=== PATIENT | female | born 1940 | race Two or more races ===

== ENCOUNTER 2019-01-27 11:31 | Inpatient (IN) | payer MEDICARE, MEDICAID ==
[~2019-01-27] VITALS: Ht 162.6 cm; Wt 56.7 kg
[~2019-01-27 11:31] MED LIST: ATOR20TA PO; DICL75TA5 PO; GABA-532 PO; HYDR100T27 PO; ISOS30TA6 PO; LOSA100T3 PO; METO25TA6 PO; OMEP20CA11 PO; QUET25TA PO; TRAZ300T2 PO
--- NOTE | 2019-01-27 13:50 | NUR ---
MANAGER OF RECRUITING NOTE; PT ADMITTED FROM [facility]. 5150 DTO/GD. PER HOLD PT "EXPERIENCING MOOD SWINGS, FLAT AFFECT, SUSPICIOUS, GUARDED, CONFUSED, RESPONDING INAPPROPRIATELY,PARANOID, DELUSIONAL BELIEVESSOMEONE IS GOING TO RAPE/HURT HER. NOT SLEEPING FOR 3 DAYS. HIT SON WITH WALKING CANE. UNABLE TO FORMULATE A PLAN FOR SELF CARE".PT PRESENT A+OX1, HYPERTENSIVE, ANXIOUS, RESTLESS, HYPERVERBAL, DIFFICULT TO REDIRECT, PARANOID, DELUSIONAL. DENIES SI/HI/AH/VH AT PRESENT TIME. SKIN IS INTACT. VS: 199/92, 59,20,97%, 98.0. MEDICAL DOCTOR NOTIFIED OF ELEVATED BP. ORDERS RECEIVED AND CARRIED OUT. DR. NAYLOR NOTIFIED WITH ADMITTING ORDERS NOTED AND CARRIED OUT. NOTIFIED PT'S SON, MANFRED. VM LEFT ON MACHINE.
[2019-01-27] MEDS ORDERED: ALPR0.255 PO (14:54)
[2019-01-27] MEDS ORDERED: ASPI-605 PO (14:54)
[2019-01-27] MEDS ORDERED: MELO-107 PO (14:54)
[2019-01-27] MEDS: LOSARTAN POTASSIUM 50 MG TABLET PO SCH (15:00)
[2019-01-27] MEDS ORDERED: clonazePAM 0.5 MG TABLET PO STA (15:19)
[2019-01-27] MEDS ORDERED: MAG HYDROX/AL HYDROX/SIMETH 30 ML UDC PO PRN (15:30)
[2019-01-27] MEDS ORDERED: BLOOD SUGAR DIAGNOSTIC 1 EACH STRIP IN ONE (15:30)
[2019-01-27] MEDS ORDERED: TEMAZEPAM 7.5 MG CAPSULE PO PRN (15:30)
[2019-01-27] MEDS ORDERED: MAGNESIUM HYDROXIDE 30 ML UDC PO PRN (15:30)
[2019-01-27] MEDS: CLONIDINE HCL 0.1 MG TABLET PO PRN ×2 (15:46→20:22)
[2019-01-27 16:00] VITALS: BP 187/76
[2019-01-27] MEDS: hydrALAZINE HCL 50 MG TABLET PO SCH (17:00)
[2019-01-27] MEDS ORDERED: LORAZEPAM INJ 2 MG/ML VIAL IM ONE (17:00)
[2019-01-27] MEDS ORDERED: OLANZAPINE 10 MG VIAL IM ONE (17:00)
[2019-01-27 20:27] VITALS: BP 178/92
[2019-01-27] MEDS: clonazePAM 0.5 MG TABLET PO PRN ×2 (20:38→20:56)
--- NOTE | 2019-01-27 20:56 | NUR ---
GPS-RN PATIENT REFUSED KLONOPIN, DESPITE OF EXPLANATION THE IMPORTANCE PATIENT STILL REFUSED.
[2019-01-27] MEDS: GABAPENTIN 100 MG CAPSULE PO SCH (21:47)
[2019-01-27] MEDS: ATORVASTATIN 40 MG TABLET PO SCH (21:47)
--- NOTE | 2019-01-27 22:12 | NUR ---
GPS-RN PATIENT REFUSED 2200 SCHEDULED NEURONTIN AND LIPITOR. PT. REFUSED TO HAVE HER BP CHECKED AFTER ADMINISTERING CLONIDINE AND BECAME AGITATED. STATING "NO, I DON'T WANT IT". EDUCATED PT. ON RISKS VS BENEFIT PT. CONTINUES TO REFUSE. WILL CONTINUE TO MONITOR.
[2019-01-28 07:20] LABS: ALBUMIN 3.5 g/dL (3.4-5.0); BILIRUBIN,TOTAL 0.5 mg/dL (0.2-1.0); CALCIUM, SERUM 8.8 mg/dL (8.5-10.1); CREATININE 0.9 mg/dL (0.6-1.3); POTASSIUM 3.8 mmol/L (3.5-5.1); TOTAL PROTEIN, SERUM 7.5 g/dL (6.4-8.2)
[2019-01-28 07:24] LABS: CHOLESTEROL 193 mg/dL (<200); HDL CHOLESTEROL 57 mg/dL (40-60); LDL 106 mg/dL (0-99); TRIGLYCERIDES 119 mg/dL (30-150)
[2019-01-28] MEDS: PANTOPRAZOLE 40 MG TABLET.DR PO SCH (07:30)
[2019-01-28 08:00] VITALS: BP 151/78
[2019-01-28] MEDS ORDERED: METOPROLOL TARTRATE 25 MG TABLET PO SCH (09:00)
[2019-01-28] MEDS: ISOSORBIDE MONONITRATE (30MG) 30 MG TAB.SR.24H PO SCH (09:24)
[2019-01-28] MEDS: METOPROLOL TARTRATE 25 MG TABLET PO SCH (09:25)
[2019-01-28] MEDS: hydrALAZINE HCL 50 MG TABLET PO SCH ×3 (09:26→16:38)
[2019-01-28] MEDS: LOSARTAN POTASSIUM 50 MG TABLET PO SCH (09:26)
[2019-01-28] MEDS: clonazePAM 0.5 MG TABLET PO PRN (09:47)
--- NOTE | 2019-01-28 09:53 | NUR ---
RN NOTE: PATIENT NOTED WITH ANXIETY M/B PACING THE HALLWAYS AND CRYING EPISODE. ADMINISTERED PRN KLONOPIN.
--- NOTE | 2019-01-28 11:11 | NUR ---
Family Contact: SW called the pts son, Brendan ([phone]), and left him a voicemail that stated that the pt is currently in the hospital and the SW would like to coordinate the discharge plan.
[2019-01-28] MEDS: QUETIAPINE FUMARATE 25 MG TABLET PO SCH ×2 (11:45→16:38)
--- NOTE | 2019-01-28 12:35 | NUR ---
Initial Discharge Plan: Pt currently resides in a senior apartment located at [address] [place] [address], [address] [address]; ([phone]). Per pt, she would like to return to her apartment where her son is her shagger. JASMINE will work with the pt and the MD regarding appropriate discharge planning. SW will form a safe and proper discharge plan.
--- NOTE | 2019-01-28 14:50 | NUR ---
Group Note: SW encouraged pt to participate in group on 01/28/19 at 2pm discussing social supports. Pt is inappropriate for group therapy as pt is highly anxious, distressed, and paranoid. Pt is preoccupied with the thought of her son and returning back to her home. SW attempted to have a conversation with her about her sons involvement in her life and pt continuously screamed his name.
[2019-01-28 16:00] VITALS: BP 137/59
[2019-01-28 20:01] VITALS: BP 165/99
[2019-01-28] MEDS: GABAPENTIN 100 MG CAPSULE PO SCH (21:25)
[2019-01-28] MEDS: ATORVASTATIN 40 MG TABLET PO SCH (21:25)
[2019-01-29] MEDS: PANTOPRAZOLE 40 MG TABLET.DR PO SCH (08:20)
[2019-01-29] MEDS: LOSARTAN POTASSIUM 50 MG TABLET PO SCH (08:21)
[2019-01-29] MEDS: hydrALAZINE HCL 50 MG TABLET PO SCH ×3 (09:02→16:31)
[2019-01-29] MEDS: ISOSORBIDE MONONITRATE (30MG) 30 MG TAB.SR.24H PO SCH (09:02)
[2019-01-29] MEDS: QUETIAPINE FUMARATE 25 MG TABLET PO SCH ×2 (09:02→16:49)
[2019-01-29] MEDS: METOPROLOL TARTRATE 25 MG TABLET PO SCH (09:03)
[2019-01-29 16:00] VITALS: BP 128/56
[2019-01-29 20:00] VITALS: BP 151/69
[2019-01-29] MEDS: ATORVASTATIN 40 MG TABLET PO SCH (21:10)
[2019-01-29] MEDS: GABAPENTIN 100 MG CAPSULE PO SCH (21:10)
[2019-01-29] MEDS ORDERED: MEMANTINE HCL 5 MG TABLET PO SCH (22:00)
[2019-01-30 08:00] VITALS: BP 159/77
[2019-01-30] MEDS: PANTOPRAZOLE 40 MG TABLET.DR PO SCH (08:13)
[2019-01-30] MEDS: hydrALAZINE HCL 50 MG TABLET PO SCH ×3 (08:14→16:54)
[2019-01-30] MEDS: ISOSORBIDE MONONITRATE (30MG) 30 MG TAB.SR.24H PO SCH (08:15)
[2019-01-30] MEDS: LOSARTAN POTASSIUM 50 MG TABLET PO SCH (08:15)
[2019-01-30] MEDS: METOPROLOL TARTRATE 25 MG TABLET PO SCH (08:16)
[2019-01-30] MEDS: QUETIAPINE FUMARATE 25 MG TABLET PO SCH ×2 (08:16→16:56)
--- NOTE | 2019-01-30 09:27 | NUR ---
PC Hearing Notification: JASMINE called the pts son, Brendan ([phone]), and left a voicemail to inform him that the pt will be having a Probable Cause Hearing today and that it is scheduled for 1529 but may happen earlier.
--- NOTE | 2019-01-30 09:38 | NUR ---
Family Contact: Brendan ([phone]), pt's son, called the SW back and stated that he will most likely not be able to make it to the hearing because he is currently working in [employer]. He asked that the SW call him after the hearing to inform him of the results.
--- NOTE | 2019-01-30 12:47 | NUR ---
GROUP NOTE: SW encouraged pt to attend group discussing "issues with current hospitalization." Pt unable to participate in group due to pts cognitive impairment and only being alert/oriented to self. Pt is otherwise, disorganized, confused, and disoriented. Pt is very anxious and not appropriate for group at this time.
[2019-01-30 16:00] VITALS: BP 98/64
--- NOTE | 2019-01-30 16:18 | NUR ---
Family Contact: Brendan ([phone]), pt's son, called the SW and the SW stated that the pts PC hearing was upheld.
--- NOTE | 2019-01-30 17:00 | NUR ---
GPS RN NOTE PATIENT REFUSED HYDRALAZINE AND SEROQUEL. EDUCATED PATIENT RISKS VS BENEFITS. PATIENT RAISED VOICE AND STATED " YOU CANT GIVE ME THAT, I DONT TRUST THAT MEDICATION. I DONT WANT TO TAKE THAT MEDICATION STOP IT". EXPLAINED IMPORTANCE OF MEDICATION. PATIENT CONTINUED TO REFUSE. PATIENT IN NO ACUTE DISTRESS. WILL CONTINUE TO MONITOR.
--- NOTE | 2019-01-30 19:21 | NUR ---
PATIENT IS ALERT AND CONFUSED. AMBULATING/STTEADY GAIT. CALM, QUIET. SHOWS NO S/S OF ANY PAIN.
--- NOTE | 2019-01-30 19:22 | NUR ---
AWAKE ALERT, CONFUSED, AMBULATING, DAUGHTER VISITING AT THIS TIME. SHOWS NO S/S OF ANY DISTRESS.
[2019-01-30] MEDS: CLONIDINE HCL 0.1 MG TABLET PO PRN (19:59)
--- NOTE | 2019-01-30 19:59 | NUR ---
BP NOW 172/67, CLONIDINE 0.1 MG TAB 1 PO GIVEN.
[2019-01-30 20:02] VITALS: BP 172/67
[2019-01-30] MEDS: MEMANTINE HCL 5 MG TABLET PO SCH (20:17)
[2019-01-30] MEDS: ATORVASTATIN 40 MG TABLET PO SCH ×2 (21:02→21:15)
[2019-01-30] MEDS: GABAPENTIN 100 MG CAPSULE PO SCH ×2 (21:02→21:15)
--- NOTE | 2019-01-30 21:15 | NUR ---
PATIENT REFUSED LIPITOR 40 AND NEURONTIN 200 MG DUE FOR 2200 TONIGHT. OFFERED X2. PATIENT YELLING AND SCREAMING, " GET OUT OF HERE, I TOOK MY MEDICATION ALREADY."
--- NOTE | 2019-01-31 02:51 | NUR ---
BP 191/70, HR 63, CLONIDINE 0.1 MG TAB PO REFUSED SEVERAL TIMES.
--- NOTE | 2019-01-31 03:06 | NUR ---
CALLED AND SPOKE TO JOEL CORTEZ, RE: PATIENT IS REFUSING ORAL CLONIDINE 0.1 MG PRN FOR SBP > 160. OBTAINED NEW ORDER FOR CLONIDINE PATCH 0.1 MG Q WEEKLY.
[2019-01-31] MEDS ORDERED: CLONIDINE HCL 0.1MG/24H PTWK 1 EA PATCH TD ONE (03:19)
--- NOTE | 2019-01-31 03:25 | NUR ---
CLONIDINE PATCH 0.1 MG GIVEN, APPLIED ON LOWER MID BACK.
[2019-01-31] MEDS ORDERED: CLONIDINE HCL 0.1MG/24H PTWK 1 EA PATCH TD SCH (04:00)
--- NOTE | 2019-01-31 06:12 | NUR ---
GPS/RN NOTE: CLONIDINE PATCH 0.1 MG Q WEEKLY. PLEASE FOLLOW UP WITH MD IF IT NEEDS TO BE CONTINUED 0R NOT. ENDORSED TO DAY SHIFT NURSE.
--- NOTE | 2019-01-31 06:57 | NUR ---
GPS/RN NOTE: REFUSED BP CHECK AT THIS TIME.
[2019-01-31 08:00] VITALS: BP 180/77
[2019-01-31] MEDS: PANTOPRAZOLE 40 MG TABLET.DR PO SCH (09:08)
[2019-01-31] MEDS: hydrALAZINE HCL 50 MG TABLET PO SCH ×3 (09:09→16:56)
[2019-01-31] MEDS: ISOSORBIDE MONONITRATE (30MG) 30 MG TAB.SR.24H PO SCH (09:10)
[2019-01-31] MEDS: MEMANTINE HCL 5 MG TABLET PO SCH ×2 (09:10→21:22)
[2019-01-31] MEDS: METOPROLOL TARTRATE 25 MG TABLET PO SCH (09:10)
[2019-01-31] MEDS: LOSARTAN POTASSIUM 50 MG TABLET PO SCH (09:11)
[2019-01-31] MEDS: QUETIAPINE FUMARATE 25 MG TABLET PO SCH ×2 (09:11→16:57)
[2019-01-31] MEDS: CLONIDINE HCL 0.1 MG TABLET PO PRN (09:11)
[2019-01-31 12:18] VITALS: BP 105/59
--- NOTE | 2019-01-31 12:18 | NUR ---
RN NOTE: PATIENT C/O INDIGESTION, PRN MAALOX GIVEN
[2019-01-31] MEDS ORDERED: CLONIDINE HCL 0.1 MG TABLET PO PRN (15:00)
[2019-01-31 16:00] VITALS: BP 98/53
[2019-01-31 20:08] VITALS: BP 149/70
[2019-01-31] MEDS: ATORVASTATIN 40 MG TABLET PO SCH (21:22)
[2019-01-31] MEDS: GABAPENTIN 100 MG CAPSULE PO SCH (21:22)
[2019-02-01] MEDS: ISOSORBIDE MONONITRATE (30MG) 30 MG TAB.SR.24H PO SCH (07:52)
[2019-02-01] MEDS: QUETIAPINE FUMARATE 25 MG TABLET PO SCH ×3 (07:53→18:08)
[2019-02-01] MEDS: hydrALAZINE HCL 50 MG TABLET PO SCH ×3 (07:53→16:06)
[2019-02-01] MEDS: MEMANTINE HCL 5 MG TABLET PO SCH ×2 (07:54→21:00)
[2019-02-01] MEDS: METOPROLOL TARTRATE 25 MG TABLET PO SCH (07:54)
[2019-02-01] MEDS: PANTOPRAZOLE 40 MG TABLET.DR PO SCH (07:54)
[2019-02-01] MEDS: LOSARTAN POTASSIUM 50 MG TABLET PO SCH (07:54)
[2019-02-01 09:07] VITALS: BP 186/77
[2019-02-01] MEDS: ACETAMINOPHEN 325 MG TABLET PO PRN (15:24)
[2019-02-01] MEDS: clonazePAM 0.5 MG TABLET PO PRN (15:28)
[2019-02-01 16:00] VITALS: BP 124/72
[2019-02-01 19:55] VITALS: BP 141/64
[2019-02-01 19:57] VITALS: BP 141/64
--- NOTE | 2019-02-01 20:15 | NUR ---
rn notes: RECEIVED PT, SITTING ON A CHAIR, STATED SHE WOULD LIKE TO GO HOME, INFORMED PT IT IS NOT SAFE FOR HER TO LEAVE THE HOSPITAL AT THIS TIME, IT IS NIGHT TIME AND IT WOULD BE BETTER FOR HER TO STAY IN ORDER TO GET BETTER AND WHEN EVERYTHING IS IMPROVE AND IT IS SAFE FOR HER LEAVE, THEN THERE IS NO REASON FOR DOCTORS NOT TO LET HER LEAVE THE HOSPITAL. OFFERED PT'S ANXIETY MEDICATION BUT PT REFUSED. PER REPORT PT IS COMPLIANT WITH MEDS, HOWEVER TONIGHT SHE'S VERBALIZING THAT SHE DOESN'T WANT TO TAKE ANY OF HER MEDICATIONS. WITNESS BY ANOTHER RN. PT DENIES ANY SI/HI AT THIS TIME, STATED ALL SHE WOULD LIKE TO DO IS GO HOME. VERBALIZATION OF FEELINGS HIGHLY ENCOURAGE. RELAXATION TECHNIQUES PROVIDED. OFFERED SNACK AND WARM BLANKET, AND MAGAZINE TO READ BUT ALL THOSE OPTIONS WERE REFUSED BY PT. PT'S RESPIRATIONS EVEN AND UNLABORED. VS TAKEN AND RECORDED. PT DECIDED TO SIT IN THE HALLWAY BY RN STATION. WILL ACCOMPANY PT IN THE ROOM LATER ON. SAFETY PRECAUTIONS FOR FALL INITIATED, WILL CONTINUE MONITORING PT Q24PMRH FOR SAFETY AND ANY CHANGES IN BEHAVIOR.
[2019-02-01] MEDS: ATORVASTATIN 40 MG TABLET PO SCH (21:23)
[2019-02-01] MEDS: GABAPENTIN 100 MG CAPSULE PO SCH (21:23)
--- NOTE | 2019-02-01 21:23 | NUR ---
RN NOTES: PT REFUSED TAKING ANY OF THE MEDICATION FOR TONIGHT, OFFERED TWICE BUT PT IS FIRM WITH HER DECISION, WITNESSED BY QUAN BENTON AND QUAN MENDEZ. EDUCATION PROVIDED TO PT REGARDING RISK AND BENEFITS.
[2019-02-02] MEDS: QUETIAPINE FUMARATE 25 MG TABLET PO SCH ×2 (06:00→16:14)
--- NOTE | 2019-02-02 06:00 | NUR ---
RN NOTES: UNABLE TO ADMINISTER SCHEDULE SEROQUEL, IT IS TIMED FOR 0600AM, ORDER IS FOR Q12HRS. PT SLEEPING, AROUSES TO TACTILE STIMULI, DOES NOT WANT TO TAKE MEDS BECUASE IT'S TOO EARLY. WILL TRY OFFERING AGAIN AT 0630.
--- NOTE | 2019-02-02 06:47 | NUR ---
RN NOTES: PT REMAINS TO BE SLEEPING, APPEARS CALM AND COMFORTABLE, TRIED WAKING UP THE PT FOR SCHED MED SEROQUEL, HOWEVER PT REMAINS TO BE SLEEPING, RISE AND FALL OF CHEST NOTED, RESPIRATIONS EVEN AND UNLABORED. WILL ENDORSE TO DAY RN TO ADMINISTER MEDS ONCE PT IS MORE AWAKE.
[2019-02-02 08:00] VITALS: BP 154/70
[2019-02-02] MEDS: MEMANTINE HCL 5 MG TABLET PO SCH ×2 (08:15→20:23)
[2019-02-02] MEDS: ISOSORBIDE MONONITRATE (30MG) 30 MG TAB.SR.24H PO SCH (08:15)
[2019-02-02] MEDS: PANTOPRAZOLE 40 MG TABLET.DR PO SCH (08:15)
[2019-02-02] MEDS: LOSARTAN POTASSIUM 50 MG TABLET PO SCH (08:16)
[2019-02-02] MEDS: hydrALAZINE HCL 50 MG TABLET PO SCH ×3 (08:17→16:39)
[2019-02-02] MEDS: METOPROLOL TARTRATE 25 MG TABLET PO SCH (08:18)
[2019-02-02] MEDS: ACETAMINOPHEN 325 MG TABLET PO PRN (11:02)
--- NOTE | 2019-02-02 11:03 | NUR ---
PT C/O 01/08 HEADACHE. MEDICATED WITH TYLENOL 650MG PO.
--- NOTE | 2019-02-02 13:30 | NUR ---
Family Contact: SW called the pts son, Brendan ([phone]), and left him a voicemail that stated that the pts MD is requesting that the pt go to a care facility before returning home and the SW stated that she would like to discuss this plan with the pts son.
[2019-02-02] MEDS ORDERED: ETOMIDATE 2 MG/ML VIAL IV ONE (13:35)
[2019-02-02] MEDS ORDERED: ROCURONIUM BROMIDE 50 MG/5 ML IV ONE (13:35)
[2019-02-02 16:00] VITALS: BP 156/80
[2019-02-02 19:44] VITALS: BP 166/76
[2019-02-02] MEDS: GABAPENTIN 100 MG CAPSULE PO SCH (21:33)
[2019-02-02] MEDS: ATORVASTATIN 40 MG TABLET PO SCH (21:34)
[2019-02-03 08:00] VITALS: BP 142/60
[2019-02-03] MEDS: METOPROLOL TARTRATE 25 MG TABLET PO SCH (08:37)
[2019-02-03] MEDS: hydrALAZINE HCL 50 MG TABLET PO SCH ×3 (08:37→16:51)
[2019-02-03] MEDS: QUETIAPINE FUMARATE 25 MG TABLET PO SCH ×3 (08:38→16:51)
[2019-02-03] MEDS: PANTOPRAZOLE 40 MG TABLET.DR PO SCH (08:38)
[2019-02-03] MEDS: MEMANTINE HCL 5 MG TABLET PO SCH ×2 (08:38→21:06)
[2019-02-03] MEDS: LOSARTAN POTASSIUM 50 MG TABLET PO SCH (08:45)
[2019-02-03] MEDS: ISOSORBIDE MONONITRATE (30MG) 30 MG TAB.SR.24H PO SCH (08:46)
--- NOTE | 2019-02-03 14:15 | NUR ---
SNF Contact: Sandra ([phone]) from [facility] contacted the SW and stated that the pt was accepted to their facility.
--- NOTE | 2019-02-03 14:51 | NUR ---
Family Contact: SW called the pts son, Brendan ([phone]), and informed him that the MD is recommending that the pt be discharged to a SNF before home at this time for further stabilization. Pts son stated that he accepts this discharge plan and stated that the SW can send referrals to whichever facility the MD prefers. SW stated that she will keep him updated regarding the discharge plan.
--- NOTE | 2019-02-03 14:52 | NUR ---
SNF Referral: JASMINE faxed a referral to [facility] with attention to Sandra to the fax number: [phone].
--- NOTE | 2019-02-03 15:36 | NUR ---
Group Note: SW encouraged pt to participate in group on 02/03/19 at 1pm discussing discharge planning. Pt is inappropriate for group therapy as pt is highly anxious, distressed, and paranoid. Pt is preoccupied with the thought of her son and returning back to her home. SW attempted to have a conversation with her about her being discharged to a SNF and the pt stated that she wants to go to one so the SW stated that she will be sending referrals out for her.
[2019-02-03 15:53] VITALS: BP 103/52
[2019-02-03 20:03] VITALS: BP 140/70
[2019-02-03 20:43] VITALS: BP 140/70
--- NOTE | 2019-02-03 20:53 | NUR ---
RN NOTE RECEIVED PT IN STABLE CONDITION A/O X1 CURRENTLY NOTED IN BED WITH DAUGHTER AT BEDSIDE. NO S/S OF DISTRESS, NO C/O PAIN OR N/V. NO SIGNS OF SI OR HI. ALL CURRENT NEEDS ATTENDED TO. WILL CONT. TO MONITOR PT'S BEHAVIOR CLOSELY. SAFETY PRECAUTIONS IN PLACE.
[2019-02-03] MEDS: ATORVASTATIN 40 MG TABLET PO SCH (21:05)
[2019-02-03] MEDS: GABAPENTIN 100 MG CAPSULE PO SCH (21:06)
[2019-02-04 08:00] VITALS: BP 152/56
[2019-02-04] MEDS: LOSARTAN POTASSIUM 50 MG TABLET PO SCH (08:28)
[2019-02-04] MEDS: METOPROLOL TARTRATE 25 MG TABLET PO SCH ×2 (08:29→16:55)
[2019-02-04] MEDS: hydrALAZINE HCL 50 MG TABLET PO SCH ×3 (08:29→16:54)
[2019-02-04] MEDS: PANTOPRAZOLE 40 MG TABLET.DR PO SCH (08:29)
[2019-02-04] MEDS: ISOSORBIDE MONONITRATE (30MG) 30 MG TAB.SR.24H PO SCH (08:29)
[2019-02-04] MEDS: QUETIAPINE FUMARATE 25 MG TABLET PO SCH ×3 (08:30→16:54)
[2019-02-04] MEDS: MEMANTINE HCL 5 MG TABLET PO SCH ×2 (08:30→21:01)
--- NOTE | 2019-02-04 08:31 | NUR ---
Duplicate dose of seroquel in morning list, 25 mg. Bryant Renee RN
[2019-02-04 16:00] VITALS: BP 105/53
[2019-02-04] MEDS: ACETAMINOPHEN 325 MG TABLET PO PRN (17:44)
--- NOTE | 2019-02-04 17:50 | NUR ---
Given as needed tylenol for pain in left knee. Patient has a history of arthritis per her report. Bryant Renee RN
[2019-02-04 18:28] LABS: BASOPHILS % (AUTO) 0.2 % (0.0-2.0); EOSINOPHILS % (AUTO) 5.5 % (0.0-6.0); HEMATOCRIT 32 % (33-45); HEMOGLOBIN 10.4 g/dL (11.5-14.8); LYMPHOCYTES # (AUTO) 2.7 /CMM (0.8-4.8); LYMPHOCYTES % (AUTO) 47.7 % (20.0-44.0); MEAN CORPUSCULAR HGB CONC 33 g/dl (31.0-36.0); MEAN CORPUSCULAR VOLUME 96 fL (82-100); MONOCYTES # (AUTO) 0.6 /CMM (0.1-1.30); NEUTROPHILS % (AUTO) 35.6 % (43.0-81.0); PLATELET COUNT (AUTO) 245 /CMM (150-450); RED BLOOD CELL COUNT(AUTO) 3.28 MIL/uL (4.0-5.2); WHITE BLOOD COUNT (AUTO) 5.6 K/uL (4.3-11.0)
[2019-02-04 18:46] LABS: ALANINE AMINOTRANSFERASE 18 U/L (12-78); ALBUMIN 3.1 g/dL (3.4-5.0); ALKALINE PHOSPHATASE 78 U/L (46-116); ASPARTATE AMINOTRANSFERASE 15 U/L (15-37); BILIRUBIN,TOTAL 0.2 mg/dL (0.2-1.0); CALCIUM, SERUM 8.4 mg/dL (8.5-10.1); CARBON DIOXIDE 26 mmol/L (21-32); CHLORIDE 108 mmol/L (98-107); CREATININE 1.2 mg/dL (0.6-1.3); GLUCOSE 104 mg/dL (74-106); SODIUM SERUM 141 mmol/L (136-145); TOTAL PROTEIN, SERUM 6.6 g/dL (6.4-8.2); UREA NITROGEN, BLOOD 36 mg/dL (7-18)
[2019-02-04 18:54] LABS: C-REACTIVE PROTEIN < 0.2 mg/dL (0.0-0.9)
--- NOTE | 2019-02-04 19:25 | NUR ---
GPS OPENING NOTE. REPORT RECIEVED FROM KORY GLASS. RECIEVED PATIENT AWAKE IN BED. AXO 1 PATIENT RESPONDS TO VERBAL STIMULI. PATIENT DENIES PAIN. BREATHING EVEN AND UNLABORED. PATIENT CURLED UP IN BED WITH BLANKETS UP TO HER NECK. PT IS DISORGANIZED AND CONFUSED AND NEEDS CONSTANT REORIENTATION. PT REORIENTED TO HER SURROUNDINGS. PT DENIES SI AND HI AT THIS TIME. DENIES NEEDS AT THIS TIME. BED LOCKED AND LOW WILL CONT TO MONITOR AND MAINTAIN SAFETY CHECKS PER GPS PROTOCOL.
[2019-02-04 20:03] VITALS: BP 96/57
[2019-02-04] MEDS: GABAPENTIN 100 MG CAPSULE PO SCH (21:01)
[2019-02-04] MEDS: ATORVASTATIN 40 MG TABLET PO SCH (21:01)
--- NOTE | 2019-02-04 21:22 | NUR ---
GPS RN NOTES: SPOKE WITH ATTILA FROM RADIOLOGY REGARDING THE STATUS OF THE XRAY ORDER FOR THIS PATIENT. PER ATTILA IT'S NOT SHOWING UP ON THEIR END. SECOND ORDER INPUTTED ALREADY HOWEVER IT IS STILL NOT SHOWING ON THEIR SIDE. WILL FOLLOW UP THE SAID SITUATION WITH THE NURSE DIRECTOR SOFTWARE DEVELOPMENT-ASHVIN.
--- NOTE | 2019-02-04 21:40 | NUR ---
GPS RN NOTES: ASHVINRN JOURNEYMAN CARPENTER CAME BY INTO THE UNIT AND ASKED THE UI SOFTWARE ENGINEER TO PRINT THE ORDER AND SHE'LL GIVE IT TO RADIOLOGY STAFF. WILL FOLLOW UP.
--- NOTE | 2019-02-04 22:19 | NUR ---
GPS RN NOTES: DR. KEBEDE PUT IN ANOTHER ORDER FOR THE XRAY- THIS TIME IT CAME THROUGH ON RADIOLOGY'S END. WILL FOLLOW UP.
[2019-02-05 01:30] LABS: APPEARANCE,URINE CLEAR (CLEAR); BILIRUBIN,URINE NEGATIVE (NEGATIVE); BLOOD, URINE NEGATIVE Ery/uL (NEGATIVE); COLOR,URINE YELLOW (YELLOW); KETONES,URINE NEGATIVE (NEGATIVE); LEUKOCYTE ESTERASE ,URINE NEGATIVE (NEGATIVE); NITRITE, URINE NEGATIVE (NEGATIVE); PROTEIN,URINE NEGATIVE (NEGATIVE); UGLUCOSE NEGATIVE (NEGATIVE); UROBILINOGEN,URINE 0.2 EU/dL (0.2)
[2019-02-05 08:00] VITALS: BP 151/68
[2019-02-05] MEDS: QUETIAPINE FUMARATE 25 MG TABLET PO SCH ×4 (08:42→22:00)
[2019-02-05] MEDS: METOPROLOL TARTRATE 25 MG TABLET PO SCH ×2 (08:43→16:54)
[2019-02-05] MEDS: PANTOPRAZOLE 40 MG TABLET.DR PO SCH (08:43)
[2019-02-05] MEDS: hydrALAZINE HCL 50 MG TABLET PO SCH ×3 (08:43→16:31)
[2019-02-05] MEDS: MEMANTINE HCL 5 MG TABLET PO SCH ×3 (09:18→21:12)
[2019-02-05] MEDS: ISOSORBIDE MONONITRATE (30MG) 30 MG TAB.SR.24H PO SCH (09:18)
[2019-02-05] MEDS: LOSARTAN POTASSIUM 50 MG TABLET PO SCH (09:20)
[2019-02-05 10:07] VITALS: BP 150/57
--- NOTE | 2019-02-05 10:08 | NUR ---
PATIENT WALKING UNIT / EXERTING HERSELF PER HER REPORT BEGAN TO HAVE LEFT SIDE CHEST PAIN. POSSIBLE PULL OF MUSCLE FROM WALKER. WILL NOTIFY MD. VITAL SIGNS STABLE. NO APPARENT DISTRESS. KORY Renee RN
--- NOTE | 2019-02-05 10:21 | NUR ---
CALL TO PROVIDER REGARDING PATIENT COMPLAINT OF CHEST PAIN AFTER AMBULATING HALLWAY WITH WALKER AND UNREMARKABLE VITAL SIGNS, NO RADIATION OF PAIN, NO DYSPNEA, NO SWEATING. KORY Renee RN
[2019-02-05 16:00] VITALS: BP 150/59
--- NOTE | 2019-02-05 16:20 | NUR ---
Family Contact: SW called the pts son, Brendan ([phone]), and informed him that the pt will be discharged to [facility] the following day.
[2019-02-05] MEDS: ACETAMINOPHEN 325 MG TABLET PO PRN (16:53)
[2019-02-05 20:00] VITALS: BP 146/63
[2019-02-05 20:16] VITALS: BP 146/63
[2019-02-05 20:23] VITALS: BP 146/63
[2019-02-05] MEDS: GABAPENTIN 100 MG CAPSULE PO SCH ×2 (21:12→22:00)
[2019-02-05] MEDS: ATORVASTATIN 40 MG TABLET PO SCH ×2 (21:12→22:00)
--- NOTE | 2019-02-05 22:05 | NUR ---
GPS RN NOTE PATIENT AWOKE FROM SLEEP. YELLING "WHOEVER IS IN MY KITCHEN BETTER GET OUT OF THERE." RN ORIENTED PATIENT STATING THAT SHE IS IN THE HOSPITAL. OFFERED PATIENT NIGHT TIME MEDICATIONS AND PATIETN REFUSED ALL MEDS. STATING "IM AT HOME I DONT NEED ANYTHING." AGAIN RN ORIENTED PATIENT THAT SHE IS IN THE HOSPITAL AND NEEDS TO TAKE HER MEDS. PATIENT STILL REFUSED. WILL TRY AGAIN AT A LATER TIME. PATIENT WENT BACK TO SLEEP.
--- NOTE | 2019-02-06 04:01 | NUR ---
GPS RN NOTE PATIENT WOKE UP IN THE MIDDLE OF THE NIGHT TO USE THE BATHROOM DID NOT MAKE IT, AND SOILED HERSELF AND THE BED, LINENS AND CLOTHES CHANGES, PATIENT CLEANED
[2019-02-06 08:00] VITALS: BP 148/65
[2019-02-06] MEDS: QUETIAPINE FUMARATE 25 MG TABLET PO SCH (08:10)
[2019-02-06] MEDS: ISOSORBIDE MONONITRATE (30MG) 30 MG TAB.SR.24H PO SCH (08:11)
[2019-02-06] MEDS: LOSARTAN POTASSIUM 50 MG TABLET PO SCH (08:12)
[2019-02-06] MEDS: hydrALAZINE HCL 50 MG TABLET PO SCH ×2 (08:12→12:21)
[2019-02-06] MEDS: MEMANTINE HCL 5 MG TABLET PO SCH (08:12)
[2019-02-06] MEDS: PANTOPRAZOLE 40 MG TABLET.DR PO SCH (08:12)
--- NOTE | 2019-02-06 08:13 | NUR ---
RN NOTE: 0900 METOPROLOL HELD D/T PULSE 56
[2019-02-06] MEDS: METOPROLOL TARTRATE 25 MG TABLET PO SCH (08:17)
--- NOTE | 2019-02-06 08:34 | NUR ---
Family Contact: SW called the pts son, Brendan ([phone]), and informed him that the pt will be discharged today to [facility] at around 1pm and attempted to answer his questions regarding the pts projected length of stay and her medication dosages.
[2019-02-06] MEDS ORDERED: ENSURE ENLIVE 237 ML LIQUID (VANILLA) PO SCH (09:00)
[2019-02-06 12:21] VITALS: BP 103/58
--- NOTE | 2019-02-06 13:04 | NUR ---
Discharge Note: Pt was discharged to [facility] ([facility]) located at [address] [place] [address]; ([phone]). Pt was transported via [facility] at 12PM. Pts son, Brendan ([phone]), was informed of the discharge. Upon discharge, the pt appeared to be in an anxious mood and presented with a distressed affect. Pt appeared to be well groomed and appropriately dressed. Pt was alert and oriented x4. Pt denied both suicidal and homicidal ideation as well as auditory and visual hallucinations. Pt will be under the care of her psychiatrist, Dr. Erna Centeno, located at [address] [facility] [address], [place] [address]; and her surgical services assistant, Dr. Deepak Rowan, located at [address] [facility], [address] [place] [address]; .
--- NOTE | 2019-02-06 13:09 | NUR ---
INSOLE RASPER NOTE: PATIENT IS A 78 YEAR OLD FEMALE DISCHARGED TO [facility] [address] [facility] [id number] [phone]. PATIENT IS IN STABLE CONDITION. VSS. NO ACUTE DISTRESS NOTED. NO COMPLAINTS. COMPLIANT WITH MEDICATION MANAGEMENT. COOPERATIVE WITH PLAN OF CARE. PSYCHIATRIC TREATMENT PLANS MET. MEDICAL TREATMENT PLANS DEFERRED FOR CONTINUAL MONITORING. DENIES SI/HI VAH AT THE TIME OF DISCHARGE. SKIN INTACT. EDUCATED PATIENT ABOUT AFTERCARE WITH COPY PROVIDED. RETURNED PERSONAL BELONGINGS TO PATIENT. MEDICATIONS RECONCILED WITH ALONG WITH PSYCHIATRIC DISCHARGE ORDERS. DISCHARGE PAPERWORK SIGNED. FOR FOLLOW UP WITH PSYCHIATRIST DR KEBEDE [address] [facility] [address] [place] [phone] AND VOCATIONAL NURSE LVN DR RAMAN [address] [facility] [address] [facility] [phone] WITHIN 1 WEEK. PATIENT LEFT THE [facility] GPS VIA AMBULANCE AT 1300.
== END 2019-02-06 13:00 | DRG 885 ==
LOC: GPS 13:25
PROVIDERS: ADMIT Psychiatry & Neurology Psychosomatic Medicine; ATTEND Internal Medicine
DX: F29 Unspecified psychosis not due to a substance or known physiological condition (principal); G93.40 Encephalopathy, unspecified; I25.10 Atherosclerotic heart disease of native coronary artery without angina pectoris; I10 Essential (primary) hypertension; E78.5 Hyperlipidemia, unspecified; K21.9 Gastro-esophageal reflux disease without esophagitis; J44.9 Chronic obstructive pulmonary disease, unspecified; I16.0 Hypertensive urgency; G62.9 Polyneuropathy, unspecified; F41.9 Anxiety disorder, unspecified; F32.9 Major depressive disorder, single episode, unspecified; M17.12 Unilateral primary osteoarthritis, left knee; R07.89 Other chest pain; F25.9 Schizoaffective disorder, unspecified; F01.50 Vascular dementia, unspecified severity, without behavioral disturbance, psychotic disturbance, mood disturbance, and anxiety; Z86.73 Personal history of transient ischemic attack (TIA), and cerebral infarction without residual deficits; Z88.0 Allergy status to penicillin; Z87.891 Personal history of nicotine dependence; Z91.14 Patient's other noncompliance with medication regimen
CPT/HCPCS: 36415; 73564-TC; 80053-TC; 80061-TC; 81000-TC; 82962-TC; 84484-TC; 85025-TC; 85652-TC; 86140-TC; 87086-TC; J2060; J3490

== ENCOUNTER 2019-03-15 12:52 | Inpatient (IN) | payer MEDICAID, MEDICARE ==
[~2019-03-15] VITALS: Ht 165.1 cm; Wt 60.3 kg
[~2019-03-15 12:52] MED LIST changes: +ASPI-605 PO; -ATOR20TA PO; +CEPHALEXIN MONOHYDRATE 250 MG CAPSULE PO SCH; -DICL75TA5 PO; -ISOS30TA6 PO; +MELO-107 PO; -METO25TA6 PO; -OMEP20CA11 PO; +OMEP20CA15 PO; -QUET25TA PO; -TRAZ300T2 PO
--- NOTE | 2019-03-15 12:55 | NUR ---
SANIA SLATER FROM [facility], C/O WITNESSED SYNCOPAL EPISODE, PT IS AAOX2, NOT IN RESPIRATORY DISTRESS, HOOKED TO MONITOR, KEPT RESTED AND COMFORTABLE, WILL CONTINUE TO MONITOR.
--- NOTE | 2019-03-15 12:59 | NUR ---
PT SEEN AND EXAMINED BY .
[2019-03-15] MEDS ORDERED: IV NS 0.9% 500 ML BAG IV ONE (13:00)
[2019-03-15] MEDS ORDERED: ONDANSETRON HCL/PF 4 MG/2 ML VIAL IVP ONE (13:00)
[2019-03-15 13:14] LABS: BASOPHILS # (AUTO) 0.1 /CMM (0.0-0.2); BASOPHILS % (AUTO) 0.8 % (0.0-2.0); EOSINOPHILS % (AUTO) 4.5 % (0.0-6.0); HEMATOCRIT 32 % (33-45); HEMOGLOBIN 10.5 g/dL (11.5-14.8); LYMPHOCYTES # (AUTO) 2.5 /CMM (0.8-4.8); LYMPHOCYTES % (AUTO) 39.5 % (20.0-44.0); MEAN CORPUSCULAR HGB CONC 33 g/dl (31.0-36.0); MEAN CORPUSCULAR VOLUME 97 fL (82-100); MONOCYTES # (AUTO) 0.5 /CMM (0.1-1.30); NEUTROPHILS % (AUTO) 47.2 % (43.0-81.0); PLATELET COUNT (AUTO) 259 /CMM (150-450); RED BLOOD CELL COUNT(AUTO) 3.34 MIL/uL (4.0-5.2); WHITE BLOOD COUNT (AUTO) 6.3 K/uL (4.3-11.0)
--- NOTE | 2019-03-15 13:15 | NUR ---
IV LINE ESTABLISHED, BLOOD DRAWN AND SENT TO LAB.
[2019-03-15] MEDS ORDERED: ATOR40TA PO (13:19)
[2019-03-15] MEDS ORDERED: MAGN400O6 PO (13:19)
[2019-03-15] MEDS ORDERED: PANT40TA2 PO (13:19)
[2019-03-15] MEDS ORDERED: MULT-447 PO (13:19)
[2019-03-15] MEDS ORDERED: METO25TA20 PO (13:19)
[2019-03-15] MEDS ORDERED: MEMA10TA PO (13:19)
[2019-03-15] MEDS ORDERED: CLON1PAT TD (13:19)
[2019-03-15] MEDS ORDERED: TEMA15CA5 PO (13:19)
[2019-03-15] MEDS ORDERED: ISOS30TA6 PO (13:19)
[2019-03-15] MEDS ORDERED: BISA10SU11 RC (13:19)
[2019-03-15] MEDS ORDERED: QUET25TA PO (13:19)
[2019-03-15] MEDS ORDERED: QUET50TA PO (13:19)
[2019-03-15] MEDS ORDERED: NA P133E RC (13:19)
[2019-03-15] MEDS ORDERED: ACET-868 PO (13:19)
[2019-03-15] MEDS ORDERED: ONDANSETRON HCL/PF 4 MG/2 ML VIAL ONE (13:21)
--- NOTE | 2019-03-15 13:34 | NUR ---
PT IS WHEELED TO CT SCAN VIA [facility].
--- NOTE | 2019-03-15 13:59 | NUR ---
SPOKED TO MANFRED LUI'S SON FOR INFO.
[2019-03-15 14:23] LABS: ALANINE AMINOTRANSFERASE 25 U/L (12-78); ALKALINE PHOSPHATASE 86 U/L (46-116); ASPARTATE AMINOTRANSFERASE 22 U/L (15-37); BILIRUBIN,DIRECT 0.1 mg/dL (0.0-0.2); BILIRUBIN,TOTAL 0.3 mg/dL (0.2-1.0); CALCIUM, SERUM 8.2 mg/dL (8.5-10.1); CARBON DIOXIDE 25 mmol/L (21-32); CHLORIDE 109 mmol/L (98-107); GLUCOSE 104 mg/dL (74-106); POTASSIUM 4.1 mmol/L (3.5-5.1); SODIUM SERUM 143 mmol/L (136-145); UREA NITROGEN, BLOOD 24 mg/dL (7-18)
--- NOTE | 2019-03-15 14:31 | NUR ---
REPORT GIVEN TO QUAN COSTA FOR ANNE.
--- NOTE | 2019-03-15 14:45 | NUR ---
TELE1/FIELD SERVICE TECHNICIAN POULTRY TO TELE1 - ROOM 117#1 PT ARRIVED VIA GURNEY ACCOMPANIED BY ER NURSE AND TRANSPORT PERSONNEL. TRANSFERRED TO HOSPITAL BED. PT ADMITTED FOR SYNCOPE, UNDER THE CARE OF DT. ROBERTS. A/O X 1-2, AGITATED AND CONFUSED, ROOM AIR SATURATING @ 100%, LUNG CLEAR, RESPIRATIONS EVEN & UNLABORED. TELE BOX PLACED, SINUS RHYTHM. IV SITE FLUSHED, PATENT WITH NO S/S OF INFECTION. AWAITING FOR ADMITTING ORDERS. PT RE-ORIENTED TO HER SURROUNDINGS. CL WITHIN REACHED AND SAFETY MAINTAINED. ON GOING MONITORING.
[2019-03-15 16:00] VITALS: BP 123/106
[2019-03-15] MEDS ORDERED: TEMAZEPAM 15 MG CAPSULE PO PRN (17:00)
[2019-03-15] MEDS: hydrALAZINE HCL 50 MG TABLET PO SCH ×2 (17:00→17:13)
[2019-03-15] MEDS ORDERED: NA PHOS,M-B/NA PHOS,DI-BA 1 EA ENEMA RC PRN (17:00)
[2019-03-15] MEDS: QUETIAPINE FUMARATE 25 MG TABLET PO SCH ×3 (17:00→21:44)
[2019-03-15] MEDS: MEMANTINE HCL 5 MG TABLET PO SCH ×2 (17:00→17:12)
[2019-03-15] MEDS ORDERED: IV NS 0.9% 1,000 ML IV PRN (17:06)
[2019-03-15] MEDS ORDERED: ONDANSETRON HCL/PF 4 MG/2 ML VIAL IVP PRN (17:30)
[2019-03-15] MEDS ORDERED: Z GUARD REMEDY 2 OZ OINT TP PRN (17:30)
[2019-03-15 17:54] LABS: APPEARANCE,URINE CLEAR (CLEAR); BILIRUBIN,URINE NEGATIVE (NEGATIVE); BLOOD, URINE NEGATIVE Ery/uL (NEGATIVE); COLOR,URINE YELLOW (YELLOW); KETONES,URINE NEGATIVE (NEGATIVE); LEUKOCYTE ESTERASE ,URINE TRACE (NEGATIVE); NITRITE, URINE POSITIVE (NEGATIVE); PROTEIN,URINE NEGATIVE (NEGATIVE); UGLUCOSE NEGATIVE (NEGATIVE); UROBILINOGEN,URINE 0.2 EU/dL (0.2)
[2019-03-15 18:11] LABS: BACTERIA,URINE 4+ /HPF (None Seen); RBC,URINE 0-2 /HPF (0-2); SQUAMOUS EPITHELIAL CELL,UR 0-2 /HPF (None Seen); WBC,URINE 0-2 /HPF (0-3)
--- NOTE | 2019-03-15 19:36 | NUR ---
TELE1/RN AM SHIFT CLOSING NOTES ALL NEEDS MET, NO ACUTE CHANGE OF CONDITION NOTED SINCE PT WAS ADMITTED THIS AFTERNOON. PT ENDORSED TO PM NURSE TO CONTINUE CARE. CL WITHIN REACHED AND SAFETY MAINTAINED.
--- NOTE | 2019-03-15 19:45 | NUR ---
TELE1 RN OPENING NOTES, RECEIVED PATIENT FROM AM RN SLEEPING. A/O X 1-2. PATIENT ON ROOM AIR SATURATING @ 100%, LUNG CLEAR, RESPIRATIONS EVEN & UNLABORED. PATIENT ON TELE MONITOR, SINUS RHYTHM. IV ON R WRIST, SITE CLEAR, NO S/S OF INFILTRATION. NS @75ML/HR. PATIENT ON RESTRAINS. CALL LIGHT WITHIN REACHED AND SAFETY MAINTAINED. WILL CONTINUE TO MONITOR.
[2019-03-15 20:00] VITALS: BP 157/74
--- NOTE | 2019-03-15 20:20 | NUR ---
TECHNOLOGY SALES REPRESENTATIVE NOTES, PATIENT REFUSED BLOOD WORK, TRIED TO EXPLAIN THE IMPORTANCE OF BLOOD WORK BUT SHE WANTED US OUT OF THE ROOM AND NOT TOUCH HER. WILL CONTINUE TO CHECK ONT HE PATIENT.
[2019-03-15] MEDS: GABAPENTIN 100 MG CAPSULE PO SCH (21:44)
[2019-03-15] MEDS: METOPROLOL TARTRATE 25 MG TABLET PO SCH (21:46)
[2019-03-15] MEDS: ATORVASTATIN 40 MG TABLET PO SCH (21:46)
[2019-03-15] MEDS: ENOXAPARIN SODIUM 40 MG/0.4 ML DISP.SYRIN SQ SCH (21:50)
[2019-03-16] VITALS (7 sets, daily range): BP systolic 124–148; BP diastolic 50–71
--- NOTE | 2019-03-16 | NUR ---
ORGAN ASSEMBLER NOTES, PATIENT REFUSED TO BE TOUCHED. SHE REFUSED VITAL SIGNS AT 0000. Addendum: 03/16/19 at 0200 by ROSA WORRELL RN Amended: Links added.
--- NOTE | 2019-03-16 04:16 | NUR ---
TOOL AND DIE MACHINIST NOTE, PATIENT REFUSED 0400 VS TOO. IT WAS TRIED BY STRIPPER AND PRINTER, RN AND CHARGE NURSE BUT STILL REFUSED.
[2019-03-16 06:45] LABS: BASOPHILS # (AUTO) 0.1 /CMM (0.0-0.2); BASOPHILS % (AUTO) 1.1 % (0.0-2.0); EOSINOPHILS % (AUTO) 3.5 % (0.0-6.0); HEMATOCRIT 29 % (33-45); HEMOGLOBIN 9.6 g/dL (11.5-14.8); LYMPHOCYTES # (AUTO) 2.3 /CMM (0.8-4.8); LYMPHOCYTES % (AUTO) 39.2 % (20.0-44.0); MEAN CORPUSCULAR HGB CONC 33 g/dl (31.0-36.0); MEAN CORPUSCULAR VOLUME 96 fL (82-100); MONOCYTES # (AUTO) 0.5 /CMM (0.1-1.30); MONOCYTES % (AUTO) 8.7 % (2.0-12.0); NEUTROPHILS # (AUTO) 2.8 /CMM (1.8-8.9); NEUTROPHILS % (AUTO) 47.5 % (43.0-81.0); PLATELET COUNT (AUTO) 266 /CMM (150-450); RED BLOOD CELL COUNT(AUTO) 3.04 MIL/uL (4.0-5.2); WHITE BLOOD COUNT (AUTO) 5.9 K/uL (4.3-11.0)
[2019-03-16 06:50] LABS: ALBUMIN 2.6 g/dL (3.4-5.0); BILIRUBIN,TOTAL 0.4 mg/dL (0.2-1.0); CALCIUM, SERUM 7.8 mg/dL (8.5-10.1); CREATININE 1.1 mg/dL (0.6-1.3); MAGNESIUM 1.8 mg/dL (1.8-2.4); POTASSIUM 3.8 mmol/L (3.5-5.1); TOTAL PROTEIN, SERUM 6.1 g/dL (6.4-8.2)
[2019-03-16 07:08] LABS: THYROID STIMULATING HORMONE 0.623 uIU/mL (0.358-3.74)
--- NOTE | 2019-03-16 07:23 | NUR ---
PM RN CLOSING NOTES, PATIENT IN BED A/O X 1-2. PATIENT ON ROOM AIR SATURATING @ 100%, LUNG CLEAR, RESPIRATIONS EVEN & UNLABORED. PATIENT ON TELE MONITOR, SINUS RHYTHM. IV ON R WRIST, SITE CLEAR, NO S/S OF INFILTRATION. NS @75ML/HR. PATIENT ON RESTRAINS. PATIENT REFUSED VS AT STEWARD RACETRACK. CALL LIGHT WITHIN REACHED AND SAFETY MAINTAINED. WILL ENDORSE THE PATIENT TO AM RN.
--- NOTE | 2019-03-16 08:00 | NUR ---
TELE 1/ RN OPENING NOTES RECEIVED PT FROM PM RN. PT IS A/O 1-2. PT IS CONFUSED AND COMBATIVE AND IS ON WRIST RESTRAINTS. RESTRAINTS RELEASED TO CHECK FOR CIRCULATION AND COMFORT AND PLACED BACK ON THE PT. PATIENT IS ON ROOM AIR WITH 02SAT @ 100%. UNLABORED BREATHING AND RESPIRATIONS ARE EVEN. PT IS ON TELE MONITOR WITH SINUS RHYTHM. HR @ 70bpm. NS RUNNING AT 75MLS/HR. IV SITE HAS NO S/S OF INFECTION. CALL LIGHT WITHIN REACH. PT IS COMFORTABLE AND SAFETY IS MAINTAINED. WILL CONTINUE TO MONITOR CLOSELY.
[2019-03-16] MEDS: PANTOPRAZOLE 40 MG TABLET.DR PO SCH (08:11)
[2019-03-16] MEDS: hydrALAZINE HCL 50 MG TABLET PO SCH ×2 (08:13→16:41)
[2019-03-16] MEDS: MEMANTINE HCL 5 MG TABLET PO SCH ×2 (08:14→16:41)
[2019-03-16] MEDS: METOPROLOL TARTRATE 25 MG TABLET PO SCH ×2 (08:14→21:02)
[2019-03-16] MEDS: ISOSORBIDE MONONITRATE (30MG) 30 MG TAB.SR.24H PO SCH (08:14)
[2019-03-16] MEDS: MULTIVITAMINS,THERAGRAN 1 UDTAB TABLET PO SCH (08:15)
[2019-03-16] MEDS: QUETIAPINE FUMARATE 25 MG TABLET PO SCH ×3 (08:15→21:59)
--- NOTE | 2019-03-16 10:36 | NUR ---
TELE1/RN FIRST DOSE KEFLEX PT RECEIVED FIRST DOSE OF KEFLEX 250MG. PT'S SON VERIFIED THAT PT HAS TAKEN THE MEDICATION BEFORE, PHARMACY NOTIFIED.
[2019-03-16] MEDS: CEPHALEXIN MONOHYDRATE 250 MG CAPSULE PO SCH ×2 (12:51→21:02)
[2019-03-16] MEDS: ACETAMINOPHEN 325 MG TABLET PO PRN (14:00)
--- NOTE | 2019-03-16 14:06 | NUR ---
TELE1/RN ROUNDS NO ACUTE CHANGE OF CONDITION. PT RESTING COMFORTABLY. MONITORING CONTINUED.
--- NOTE | 2019-03-16 18:00 | NUR ---
TELE 1/RN AFTERNOON ROUNDS PATIENT IN STABLE CONDITION, NO ACUTE CHANGES NOTED. PM CARE PROVIDED, TURNED AND REPOSITIONED. MONITORING CONTINUED.
--- NOTE | 2019-03-16 19:24 | NUR ---
TELE 1/RM AM SHIFT CLOSING NOTES ALL PT NEEDS MET, PT IS STABLE. NO ACUTE CHANGE OF PT CONDITION. CALL LIGHT IN REACH. SAFETY MAINTAINED. BED ALARM TURNED ON. PATIENT ENDORSED TO PM NURSE TO CONTINUE CARE.
--- NOTE | 2019-03-16 19:38 | NUR ---
COTTRELL BLOWER NOTES RECEIVED PATIENT AWAKE,RESTING COMFORTABLY, NO APPARENT SIGNS OF ACUTE RESPIRATORY OR CARDIAC DISTRESS. PATIENT IS A/O 1-2. PATIENT IS CONFUSED, NO SIGNS OF RESTLESS NESS NOTED. PATIENT IS ON ROOM AIR WITH 02SAT @ 100%. UNLABORED BREATHING AND RESPIRATIONS ARE EVEN. PT IS ON TELE MONITOR WITH SINUS RHYTHM. HR @ 70bpm. NURSE SOON IS INSERTING NEW IV SITE, IV ACCESS, WILL CONTINUE TO MONITOR. SAFETY MEASURES IN PLACE, CALL LIGHT WITHIN REACH.ALL NEEDS ANTICIPATED, KEPT CLEAN DRY AND COMFORTABLE. WILL CONTINUE TO MONITOR ACCORDINGLY.
--- NOTE | 2019-03-16 19:53 | NUR ---
RN NOTES PATIENT IS STARTING TO BE COMBATIVE, SCREAMING AND YELLING TOWARDS STAFF, SAFETY MEASURES IN PLACED, WILL MONITOR CLOSELY.
--- NOTE | 2019-03-16 20:10 | NUR ---
BRACE END MAINSPRING FORMER NOTES INFORMED MD REGARDING PATIENT CURRENT CONDITION, TRYING TO HIT CN DURAN BY THROWING A PHONE, KICKING, SCREAMING, COMBATIVE, TRYING TO PULL OUT IV LINE. DR. EVANS ORDERED SOFT WRIST RESTRAINTS AND ATIVAN IV 1MG Q 6 PRN. ORDERED NOTED AND CARRIED OUT. CHARGE NURSE AWARE.
[2019-03-16] MEDS ORDERED: LORAZEPAM INJ 2 MG/ML VIAL IV PRN (20:30)
[2019-03-16] MEDS: GABAPENTIN 100 MG CAPSULE PO SCH (21:03)
[2019-03-16] MEDS: ATORVASTATIN 40 MG TABLET PO SCH (21:03)
[2019-03-16] MEDS: ENOXAPARIN SODIUM 40 MG/0.4 ML DISP.SYRIN SQ SCH (22:01)
[2019-03-17 00:02] VITALS: BP 119/52
[2019-03-17 08:00] VITALS: BP 165/69
--- NOTE | 2019-03-17 08:00 | NUR ---
TELE 1/ RN OPENING NOTES RECEIVED PT FROM NIGHT NURSE. PT IS A/O 1-2. PT IS ON WRIST RESTRAINTS. PT IS CONFUSED AND COMBATIVE. RESTRAINTS RELEASED TO CHECK FOR CIRCULATION AND COMFORT AND PLACED BACK ON THE PT. PATIENT IS ON ROOM AIR WITH 02SAT @ 100%. CLEAR LUNG SOUNDS NOTED. UNLABORED BREATHING AND RESPIRATIONS ARE EVEN. PT IS ON TELE MONITOR WITH SINUS RHYTHM. HR @ 72BPM. IV SITE OCCLUDED WITH MULTIPLE ATTEMPTS TO INSERT A PERIPHERAL LINE ATTEMPTED. WILL TALK TO MD ABOUT MID LINE PLACEMENT. CALL LIGHT WITHIN REACH. PT IS COMFORTABLE AND SAFETY IS MAINTAINED. WILL CONTINUE TO MONITOR CLOSELY.
[2019-03-17] MEDS: QUETIAPINE FUMARATE 25 MG TABLET PO SCH ×3 (08:29→21:26)
[2019-03-17] MEDS: MULTIVITAMINS,THERAGRAN 1 UDTAB TABLET PO SCH (08:29)
[2019-03-17] MEDS: MEMANTINE HCL 5 MG TABLET PO SCH ×2 (08:30→17:19)
[2019-03-17] MEDS: hydrALAZINE HCL 50 MG TABLET PO SCH ×2 (08:31→17:19)
[2019-03-17] MEDS: METOPROLOL TARTRATE 25 MG TABLET PO SCH ×2 (08:31→21:26)
[2019-03-17] MEDS: CEPHALEXIN MONOHYDRATE 250 MG CAPSULE PO SCH ×3 (08:33→21:26)
[2019-03-17] MEDS: PANTOPRAZOLE 40 MG TABLET.DR PO SCH (08:33)
[2019-03-17] MEDS: ISOSORBIDE MONONITRATE (30MG) 30 MG TAB.SR.24H PO SCH (08:34)
--- NOTE | 2019-03-17 11:44 | NUR ---
TELE1/RN ROUNDS - DR. MONIQUE UPDATED PT'S CONDITION. PT SEEN & EXAMINED BY DR. MONIQUE. RECEIVED VERBAL ORDER TO INSERT MIDLINE D/T MULTIPLE FAILED ATTEMPTS TO INSERT PERIPHERAL IV. CHARGE NURSE AND NURSING CARPET YARN WINDER OPERATOR NOTIFIED.
[2019-03-17 12:00] VITALS: BP 131/71
--- NOTE | 2019-03-17 14:53 | NUR ---
TELE1/RN ROUNDS - DR. NAYLOR SPOKE TO DR. NAYLOR VIA TELEPHONE CALL. UPDATED PT'S CONDITION. RECEIVED VERBAL ORDERS: D/C PRN ATIVAN, SEROQUEL 12.5MG Q4HRS PRN FOR AGITATION AND WHEN PT HAVE AN EPISODE OF OUTBURST/AGITATION/COMBATIVE TO CALL FOR CRISIS TEAM. CHARGE NURSE NOTIFIED OF NEW ORDERS. NEW ORDERS CARRIED OUT.
[2019-03-17] MEDS ORDERED: QUETIAPINE FUMARATE 25 MG TABLET PO PRN (15:30)
[2019-03-17 16:00] VITALS: BP 145/69
--- NOTE | 2019-03-17 16:11 | NUR ---
patient very agitated,out of bed ,pacing hallway, keep saying"leave me alone",reorientation rendered and awaits crisis eval.
--- NOTE | 2019-03-17 16:21 | NUR ---
dr. gant notified regarding patient behaviour ,will repeat labs today.
--- NOTE | 2019-03-17 16:30 | NUR ---
TELE1/RN SEROQUEL PRN - REFUSED PT REFUSED PRN SEROQUEL. MONITORING.
[2019-03-17 16:53] LABS: BASOPHILS # (AUTO) 0.1 /CMM (0.0-0.2); BASOPHILS % (AUTO) 1.6 % (0.0-2.0); EOSINOPHILS % (AUTO) 4.8 % (0.0-6.0); HEMATOCRIT 30 % (33-45); HEMOGLOBIN 9.9 g/dL (11.5-14.8); LYMPHOCYTES # (AUTO) 3.5 /CMM (0.8-4.8); LYMPHOCYTES % (AUTO) 49.6 % (20.0-44.0); MEAN CORPUSCULAR HGB CONC 33 g/dl (31.0-36.0); MEAN CORPUSCULAR VOLUME 95 fL (82-100); MONOCYTES # (AUTO) 0.9 /CMM (0.1-1.30); MONOCYTES % (AUTO) 13.4 % (2.0-12.0); NEUTROPHILS # (AUTO) 2.1 /CMM (1.8-8.9); NEUTROPHILS % (AUTO) 30.6 % (43.0-81.0); PLATELET COUNT (AUTO) 238 /CMM (150-450); RED BLOOD CELL COUNT(AUTO) 3.12 MIL/uL (4.0-5.2)
[2019-03-17 17:15] LABS: CALCIUM, SERUM 8.1 mg/dL (8.5-10.1); CREATININE 0.9 mg/dL (0.6-1.3)
[2019-03-17] MEDS: ACETAMINOPHEN 325 MG TABLET PO PRN (17:19)
--- NOTE | 2019-03-17 18:54 | NUR ---
PATIENT SEEN AND EVALUATED BY CRISIS TEAM WILL PUT PATIENT ON HOLD AND PER NURSING SUP MELISSA HAS BED AVAILABLE IN GPS 220 A,DR. MONIQUE NOTIFIED AND HE WILL PUT DISCHARGE ORDER.WILL ENDORSE TO NIGHT DIVING COACH TO FACILITATE DISCHARGE TO GPS.
--- NOTE | 2019-03-17 19:40 | NUR ---
RN OPEN NOTES RECEIVED PATIENT RESTING COMFORTABLY IN BED. A/O X1. NO SIGNS OF DISTRESS OR DISCOMFORT. BREATHING EVEN AND UNLABORED. ON TELE MONITORING WITH SR 67 NOTED. HAS MARISSA MIDLINE, PATENT AND INTACT, NO SIGNS OF REDNESS OR INFILTRATION. BED IN LOW LOCKED POSITION WITH SIDE RAILS X3. CALL LIGHT WITHIN REACH. WILL CONTINUE TO MONITOR.
[2019-03-17 20:00] VITALS: BP 144/58
--- NOTE | 2019-03-17 20:17 | NUR ---
TELE 1/ RN AM CLOSING NOTES ALL PT NEEDS MET. NO ACUTE CHANGE OF CONDITION THROUGHOUT THE SHIFT. PATIENT TO BE TRANSFERRED TO GPS. PT ENDORSED TO PM NURSE TO COMPLETE TRANSFER PROTOCOL. CL WITHIN REACH AND SAFETY MAINTAINED.
[2019-03-17] MEDS: ATORVASTATIN 40 MG TABLET PO SCH (21:25)
[2019-03-17 21:26] VITALS: BP 144/58
[2019-03-17] MEDS: GABAPENTIN 100 MG CAPSULE PO SCH (21:26)
[2019-03-17] MEDS: ENOXAPARIN SODIUM 40 MG/0.4 ML DISP.SYRIN SQ SCH (21:27)
--- NOTE | 2019-03-17 22:10 | NUR ---
RN CLOSING NOTES PATIENT TRANSFERRED TO GPS UNIT IN STABLE CONDITION WITH ALL BELONGINGS AT BEDSIDE. A/OX1. NO SIGNS OF DISTRESS OR DISCOMFORT. BREATHING EVEN AND UNLABORED. MARISSA MIDLINE REMOVED WITH NO COMPLICATIONS NOTED. ALL DUE MEDICATIONS GIVEN. REPORT GIVEN AT BEDSIDE. NO SKIN ISSUES NOTED. PATIENT ADVISED OF DISCHARGE EDUCATION AND INSTRUCTIONS AND UNABLE TO COMPREHEND AT THIS TIME. L/M FOR PATIENT FAMILY MANFRED VILLALBA TO NOTIFY OF TRANSFER OF CARE.
[2019-03-17] MEDS ORDERED: CEPH-569 PO (23:48)
[2019-03-17] MEDS ORDERED: ENOX40DI SQ (23:48)
[2019-03-21] MEDS ORDERED: CLONIDINE HCL 0.1MG/24H PTWK 1 EA PATCH TD SCH (17:00)
== END 2019-03-17 21:55 | DRG 690 ==
LOC: ER 12:52 → TELE1 14:17
PROVIDERS: ADMIT Nurse Practitioner Acute Care; ATTEND Family Medicine
PROC: 05H533Z Insertion of Infusion Device into Right Subclavian Vein, Percutaneous Approach (ICD-10-PCS; principal; 2019-03-17)
PROC: B546ZZA Ultrasonography of Right Subclavian Vein, Guidance (ICD-10-PCS; 2019-03-17)
DX: N39.0 Urinary tract infection, site not specified (principal); E86.0 Dehydration; E11.9 Type 2 diabetes mellitus without complications; I25.10 Atherosclerotic heart disease of native coronary artery without angina pectoris; J44.9 Chronic obstructive pulmonary disease, unspecified; K21.9 Gastro-esophageal reflux disease without esophagitis; I10 Essential (primary) hypertension; D63.8 Anemia in other chronic diseases classified elsewhere; Z86.73 Personal history of transient ischemic attack (TIA), and cerebral infarction without residual deficits; B96.20 Unspecified Escherichia coli [E. coli] as the cause of diseases classified elsewhere; E78.5 Hyperlipidemia, unspecified; K59.09 Other constipation; Z87.891 Personal history of nicotine dependence; Z88.0 Allergy status to penicillin; F20.9 Schizophrenia, unspecified; G30.9 Alzheimer's disease, unspecified; F02.80 Dementia in other diseases classified elsewhere, unspecified severity, without behavioral disturbance, psychotic disturbance, mood disturbance, and anxiety; Z79.82 Long term (current) use of aspirin; R55 Syncope and collapse
CPT/HCPCS: 36415; 70450-TC; 71045-TC; 80048-TC; 80053-TC; 80061-TC; 80076-TC; 81000-TC; 82962-TC; 83540-TC; 83735-TC; 84100-TC; 84443-TC; 84484-TC; 85025-TC; 87081-TC; 87086-TC; 87186-TC; 93307-TC; G0378; J1650; J2060; J2405; J7030; J7040

== ENCOUNTER 2019-03-17 22:55 | Inpatient (IN) | payer MEDICARE ==
[~2019-03-17] VITALS: Ht 165.1 cm; Wt 60.3 kg
--- NOTE | 2019-03-17 22:10 | NUR ---
GPS ADMISSION NOTES: ADMITTED THIS 78-Y/O, FEMALE, FROM [facility], PT. ADMITTED ON 5150 HOLD FOR DTS/GD. PER HOLD PT. HAS PERIODS OF CONFUSION, HAS SEVERE MOOD SWINGS, ATTEMPTED TO HIT STAFF BY THROWING PHONE, KICKING AT STAFF, SCREAMING, YELLING, ATTEMPTED TO PULL IV LINE, LABILE, IMPULSIVE AND UNPREDICTABLE. UPON FACE TO FACE ASSESSMENT, PT. IS A&O X1, CONFUSED, DISORIENTED, REORIENTATION PROVIDED. PT. UNABLE TO PROVIDE MEANINGFUL CONVERSATION. AMBULATORY WITH UNSTEADY GAIT. IN NO APPARENT DISTRESS NOTED. SKIN ASSESSMENT DONE PT. SKIN IS INTACT. PT. REFUSED TO SIGN ADMISSION CONSENTS. PT'S RIGHTS HANDBOOK & PT. GUIDELINES BOOK GIVEN & DISCUSSED TO THE PATIENT. PT BELONGINGS WERE INVENTORIED & CHECKED FOR CONTRABAND. PT. IS UNDER THE PSYCHIATRIC CARE OF DR. KEBEDE, ORDERS OBTAINED & UNDER THE MEDICAL CARE OF DR. MARCELO. PATIENT EDUCATED TO THE USE OF CALL MO. BED ALARM ON. ENVIRONMENTAL SAFETY CHECK DONE. BED LOCKED & IN LOW POSITION. WILL CONTINUE TO MONITOR Q15 MINUTES FOR SAFETY & BEHAVIOR.
[2019-03-17 22:15] VITALS: BP 147/80
[~2019-03-17 22:55] MED LIST changes: +ACET-868 PO; -ASPI-605 PO; +ATOR40TA PO; +BISA10SU11 RC; -CEPHALEXIN MONOHYDRATE 250 MG CAPSULE PO SCH; +CLON1PAT TD; +ISOS30TA6 PO; -LOSA100T3 PO; +MAGN400O6 PO; -MELO-107 PO; +MEMA10TA PO; +METO25TA20 PO; +MULT-447 PO; +NA P133E RC; -OMEP20CA15 PO; +PANT40TA2 PO; +QUET25TA PO; +QUET50TA PO; +TEMA15CA5 PO
[2019-03-17] MEDS ORDERED: MAG HYDROX/AL HYDROX/SIMETH 30 ML UDC PO PRN (23:00)
[2019-03-17] MEDS ORDERED: BLOOD SUGAR DIAGNOSTIC 1 EACH STRIP IN ONE (23:00)
[2019-03-17] MEDS ORDERED: MAGNESIUM HYDROXIDE 30 ML UDC PO PRN (23:00)
[2019-03-17] MEDS ORDERED: CEPH-569 PO (23:48)
[2019-03-17] MEDS ORDERED: ENOX40DI SQ (23:48)
[2019-03-18] MEDS ORDERED: BISACODYL SUPP (10 MG) 10 MG/SUPP.RECT SUPP.RECT RC PRN
[2019-03-18] MEDS ORDERED: ACETAMINOPHEN 325 MG TABLET PO PRN
[2019-03-18] MEDS ORDERED: MAGNESIUM HYDROXIDE 30 ML UDC PO PRN
[2019-03-18] MEDS ORDERED: NA PHOS,M-B/NA PHOS,DI-BA 1 EA ENEMA RC PRN
[2019-03-18] MEDS: CEPHALEXIN MONOHYDRATE 250 MG CAPSULE PO SCH ×3 (05:27→21:00)
[2019-03-18] MEDS ORDERED: MEMANTINE HCL 5 MG TABLET PO SCH (06:00)
[2019-03-18 07:21] LABS: CHOLESTEROL 100 mg/dL (<200); HDL CHOLESTEROL 46 mg/dL (40-60); LDL 47 mg/dL (0-99); TRIGLYCERIDES 69 mg/dL (30-150)
[2019-03-18] MEDS ORDERED: QUETIAPINE FUMARATE 25 MG TABLET PO SCH ×2 (07:30→09:00)
[2019-03-18 08:00] VITALS: BP 157/94
[2019-03-18] MEDS: PANTOPRAZOLE 40 MG TABLET.DR PO SCH (08:35)
[2019-03-18] MEDS: METOPROLOL TARTRATE 25 MG TABLET PO SCH ×2 (08:35→20:51)
[2019-03-18] MEDS: MULTIVIT W/MINERALS 1 TAB TABLET PO SCH (08:36)
[2019-03-18] MEDS: hydrALAZINE HCL 50 MG TABLET PO SCH ×3 (08:36→17:23)
[2019-03-18] MEDS: ISOSORBIDE MONONITRATE (30MG) 30 MG TAB.SR.24H PO SCH (08:37)
[2019-03-18 16:00] VITALS: BP 156/77
[2019-03-18] MEDS ORDERED: risperiDONE-M 0.5 MG TAB.RAPDIS PO SCH (20:00)
[2019-03-18 20:32] VITALS: BP 112/71
[2019-03-18] MEDS: BENZTROPINE MESYLATE (1 MG) 1 MG TABLET PO SCH (20:48)
[2019-03-18] MEDS: GABAPENTIN 100 MG CAPSULE PO SCH (21:14)
[2019-03-18] MEDS: ATORVASTATIN 40 MG TABLET PO SCH (21:14)
[2019-03-18 21:30] VITALS: BP 143/72
[2019-03-18] MEDS: ENOXAPARIN SODIUM 40 MG/0.4 ML DISP.SYRIN SQ SCH (21:52)
--- NOTE | 2019-03-18 21:52 | NUR ---
GPS-RN PATIENT REFUSED SCHEDULED LOVENOX 40MG SQ FOR TONIGHT DESPITE OF EXPLANATION THE RISKS AND BENEFITS. PATIENT STATED IN A LOUD VOICE, "NO, I DON'T NEED IT". PATIENT CONTINUES TO REFUSE. WILL CONTINUE TO MONITOR.
[2019-03-18] MEDS: TEMAZEPAM 15 MG CAPSULE PO PRN (23:56)
[2019-03-19] MEDS: TEMAZEPAM 15 MG CAPSULE PO PRN (00:16)
--- NOTE | 2019-03-19 00:16 | NUR ---
GPS RN RESTORIL REFUSED BY PATIENT, WASTED ON PYXIS WITNESSED BY ANOTHER RN.
[2019-03-19] MEDS: CEPHALEXIN MONOHYDRATE 250 MG CAPSULE PO SCH ×3 (05:00→20:55)
--- NOTE | 2019-03-19 05:59 | NUR ---
GPS-RN PATIENT REFUSED SCHEDULED KEFLEX THIS MORNING. DESPITE OF EDUCATION PROVIDED PATIENT STATED "I'M NOT GONNA TAKE IT, LEAVE ME ALONE". PATIENT CONTINUES TO REFUSE. WILL CONTINUE TO MONITOR.
[2019-03-19 08:00] VITALS: BP 156/74
[2019-03-19] MEDS: ISOSORBIDE MONONITRATE (30MG) 30 MG TAB.SR.24H PO SCH (08:18)
[2019-03-19] MEDS: METOPROLOL TARTRATE 25 MG TABLET PO SCH ×2 (08:18→20:56)
[2019-03-19] MEDS: MULTIVIT W/MINERALS 1 TAB TABLET PO SCH (08:19)
[2019-03-19] MEDS: hydrALAZINE HCL 50 MG TABLET PO SCH ×3 (08:19→16:40)
[2019-03-19] MEDS: PANTOPRAZOLE 40 MG TABLET.DR PO SCH (08:19)
[2019-03-19] MEDS: BENZTROPINE MESYLATE (1 MG) 1 MG TABLET PO SCH ×2 (08:19→20:56)
[2019-03-19] MEDS: LORAZEPAM 0.5 MG TABLET PO PRN (08:19)
[2019-03-19] MEDS ORDERED: DIVALPROEX SODIUM 125 MG CAP.SPRINK PO SCH (09:00)
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
[2019-03-19] MEDS ORDERED: OLANZAPINE 10 MG VIAL IM STA (09:47)
[2019-03-19] MEDS ORDERED: LORAZEPAM INJ 2 MG/ML VIAL IM ONE (11:00)
--- NOTE | 2019-03-19 11:00 | NUR ---
PT. STILL AGITATED, AGGRESSIVE, HITTING STAFFS, THROWING WATER TO STAFF, SCREAMING AND YELLING AND ORDERED ANOTHER ATIVAN 1 MG IM AND 1:1
--- NOTE | 2019-03-19 12:01 | NUR ---
Family Contact: SW called the pts son, Brendan ([phone]), and left a voicemail stating that the SW would like to discuss the pts treatment.
--- NOTE | 2019-03-19 12:02 | NUR ---
Facility Contact: JASMINE contacted Sandra ([phone]) from [facility] who stated that the pt will be accepted back to the facility but only has a 7 day bed hold at this time.
--- NOTE | 2019-03-19 12:03 | NUR ---
Initial Discharge Plan: Pt currently resides at [facility] located at [address] [place] [id number]; [phone]. Per pt, she would like to return. Per facility, the pt is on a 7 day bed hold. SW will work with the pt and the MD regarding appropriate discharge planning. SW will form a safe and proper discharge.
[2019-03-19 16:00] VITALS: BP 156/58
[2019-03-19] MEDS: risperiDONE-M 0.5 MG TAB.RAPDIS PO SCH (16:30)
[2019-03-19] MEDS: DIVALPROEX SODIUM 125 MG CAP.SPRINK PO SCH (16:31)
--- NOTE | 2019-03-19 19:58 | NUR ---
GPS/RN NOTE: PATIENT SLEEPING QUIETLY, RISE AND FALL OF THE CHEST NOTED, NO ACUTE DISTRESS NOTED. 1:1 SITTER AT THE BEDSIDE FOR SAFETY. UNABLE TO ADMINISTER COGENTIN 0.5 MG TAB DUE FOR 1999.
[2019-03-19 20:35] VITALS: BP 126/60
[2019-03-19] MEDS: ATORVASTATIN 40 MG TABLET PO SCH (20:57)
[2019-03-19] MEDS: GABAPENTIN 100 MG CAPSULE PO SCH (20:57)
[2019-03-19] MEDS: ENOXAPARIN SODIUM 40 MG/0.4 ML DISP.SYRIN SQ SCH (21:01)
[2019-03-20] MEDS: TEMAZEPAM 15 MG CAPSULE PO PRN (02:08)
--- NOTE | 2019-03-20 02:09 | NUR ---
GPS/RN NOTE: AWAKE, FIDGETY, TRIES TO GET UP, CONFUSED RESTORIL 15 MG CAP PO GIVEN.
[2019-03-20] MEDS: CEPHALEXIN MONOHYDRATE 250 MG CAPSULE PO SCH ×3 (05:43→20:18)
--- NOTE | 2019-03-20 06:19 | NUR ---
GPS/RN NOTE: SLEPT X5 HOURS DURING THE NIGHT. CALM, COOPERATIVE, MED COMPLIANT. AMBULATORY, STANDBY ASSIST. 1:1 SITTER FOR SAFETY.
[2019-03-20 08:00] VITALS: BP 158/78
[2019-03-20] MEDS: risperiDONE-M 0.5 MG TAB.RAPDIS PO SCH ×2 (09:03→17:08)
[2019-03-20] MEDS: DIVALPROEX SODIUM 125 MG CAP.SPRINK PO SCH ×2 (09:03→17:08)
[2019-03-20] MEDS: MULTIVIT W/MINERALS 1 TAB TABLET PO SCH (09:04)
[2019-03-20] MEDS: BENZTROPINE MESYLATE (1 MG) 1 MG TABLET PO SCH ×2 (09:04→19:47)
[2019-03-20] MEDS: METOPROLOL TARTRATE 25 MG TABLET PO SCH ×2 (09:04→20:21)
[2019-03-20] MEDS: PANTOPRAZOLE 40 MG TABLET.DR PO SCH (09:04)
[2019-03-20] MEDS: ISOSORBIDE MONONITRATE (30MG) 30 MG TAB.SR.24H PO SCH (09:04)
[2019-03-20] MEDS: hydrALAZINE HCL 50 MG TABLET PO SCH ×3 (09:05→17:08)
--- NOTE | 2019-03-20 10:33 | NUR ---
Family Contact: SW called the pts son, Brendan ([phone]), and left a voicemail stating that the SW would like to discuss the pts treatment.
[2019-03-20 16:00] VITALS: BP 124/78
--- NOTE | 2019-03-20 19:48 | NUR ---
GPS/RN NOTE: AWAKE, ALERT, ORIENTED X1, TOOK HER COGENTIN 0.5 MG TAB DUE AT 1999. CALM, COOPERATIVE, MED COMPLIANT, TOOK WHOLE PILL. NO APPARENT DISTRESS NOTED. ENVIRONMENTAL SAFETY CHECK DONE. WILL CONTINUE TO MONITOR Q 15 MINS. FOR SAFETY AND BEHAVIOR. NO SITTER FOR TONIGHT PER CHARGE NURSE.
[2019-03-20 20:38] VITALS: BP 134/78
[2019-03-20] MEDS: GABAPENTIN 100 MG CAPSULE PO SCH (21:12)
[2019-03-20] MEDS: ATORVASTATIN 40 MG TABLET PO SCH (21:12)
[2019-03-20] MEDS: ENOXAPARIN SODIUM 40 MG/0.4 ML DISP.SYRIN SQ SCH (21:13)
[2019-03-21] MEDS: LORAZEPAM 0.5 MG TABLET PO PRN ×2 (05:32→20:58)
[2019-03-21] MEDS: ACETAMINOPHEN 325 MG TABLET PO PRN (05:32)
--- NOTE | 2019-03-21 05:32 | NUR ---
GPS/RN NOTE: C/O PAIN ON THE LEGS, TYLENOL 650 MG TAB PO GIVEN
--- NOTE | 2019-03-21 05:34 | NUR ---
GPS/RN NOTE: PATIENT YELLING SCREAMING, LOUD, AGITATED, ATTEMPTING TO GET UP, TRIED TO HIT HER NURSE. ATIVAN 0.5 MG TAB PO REFUSED, OFFERED X2.
[2019-03-21] MEDS: CEPHALEXIN MONOHYDRATE 250 MG CAPSULE PO SCH ×3 (05:40→21:02)
[2019-03-21] MEDS: PANTOPRAZOLE 40 MG TABLET.DR PO SCH (07:30)
[2019-03-21] MEDS: BENZTROPINE MESYLATE (1 MG) 1 MG TABLET PO SCH ×2 (08:00→20:57)
[2019-03-21] MEDS ORDERED: OLANZAPINE 10 MG VIAL IM ONE (08:00)
[2019-03-21] MEDS ORDERED: LORAZEPAM INJ 2 MG/ML VIAL IV ONE (08:00)
--- NOTE | 2019-03-21 08:15 | NUR ---
GPS/RN ATIVAN 1MG IM AND ZYPREXA 5MG IM WERE GIVEN FOR BEHAVIOR ESCALATION9 YELLIN G, SCREAMING AND TRYING TO HIT ATTENDING STUFF) PER DR BENSON ORDERS.
[2019-03-21] MEDS: hydrALAZINE HCL 50 MG TABLET PO SCH ×3 (08:18→18:12)
[2019-03-21] MEDS: ISOSORBIDE MONONITRATE (30MG) 30 MG TAB.SR.24H PO SCH (08:18)
[2019-03-21] MEDS: DIVALPROEX SODIUM 125 MG CAP.SPRINK PO SCH ×2 (08:18→18:13)
[2019-03-21] MEDS: MULTIVIT W/MINERALS 1 TAB TABLET PO SCH (08:19)
[2019-03-21] MEDS: risperiDONE-M 0.5 MG TAB.RAPDIS PO SCH ×2 (08:19→18:17)
[2019-03-21] MEDS: METOPROLOL TARTRATE 25 MG TABLET PO SCH ×2 (08:19→20:57)
--- NOTE | 2019-03-21 08:19 | NUR ---
GPS/RN PT IS AGITATED, YELLING TRIED TO HIT ATTENDING NURSES. REFUSED ATIVAN PO OFFERED AND ALL AM MEDS. REFUSED TO LET TECHNICIAN AUTOMATIC TO CHECK HER VS. DR BENSON CALLED FOR THE ORDERS. NEW ORDERS RECEIVED AND CARRIED OUT.
--- NOTE | 2019-03-21 12:22 | NUR ---
GPS/RN pt refused lunch and refused to take meds offered x3. pt is sitting in activity room in formerly named [facility].SITTER IS AT HER SIDE.
[2019-03-21 16:00] VITALS: BP 165/85
--- NOTE | 2019-03-21 19:45 | NUR ---
GPS/RN NOTE: SITTING ON A [place]-CHAIR, CALM, QUIET, CONFUSED. NO ACUTE DISTRESS NOTED. 1:1 SITTER AT THE BEDSIDE FOR SAFETY. WILL CONTINUE TO MONITOR
[2019-03-21 20:41] VITALS: BP 147/70
[2019-03-21] MEDS: ENOXAPARIN SODIUM 40 MG/0.4 ML DISP.SYRIN SQ SCH (21:13)
[2019-03-21] MEDS: GABAPENTIN 100 MG CAPSULE PO SCH (21:13)
[2019-03-21] MEDS: ATORVASTATIN 40 MG TABLET PO SCH (21:15)
--- NOTE | 2019-03-21 21:32 | NUR ---
GPS/RN NOTE: ATIVAN 0.5 MG TAB PO GIVEN FOR SLEEP.
--- NOTE | 2019-03-22 04:53 | NUR ---
GPS/RN NOTE; PATIENT SLEEPING, CLONIDINE NOT GIVEN. WILL TRY AT 0600. PATIENT VERY UNCOOPERATIVE
[2019-03-22] MEDS: CEPHALEXIN MONOHYDRATE 250 MG CAPSULE PO SCH ×3 (05:22→21:34)
[2019-03-22] MEDS: CLONIDINE HCL 0.1MG/24H PTWK 1 EA PATCH TD SCH (05:24)
--- NOTE | 2019-03-22 05:31 | NUR ---
GPS/RN NOTE: BP NOW 153/100, PULSE 69, CATAPRES-TTS PATCH 0.1 MG APPLIED ON HER RIGHT CHEST THIS MORNING AROUND 0500. DUE MIDNIGHT BUT PATIENT SLEEPING. PATIENT EASILY GETS AGITATED, IRRITABLE, CONFUSED, HAS TENDENCY TO REFUSE, VERY UNCOOPERATIVE.
[2019-03-22] MEDS: LORAZEPAM 0.5 MG TABLET PO PRN ×2 (05:43→14:41)
--- NOTE | 2019-03-22 05:44 | NUR ---
GPS/RN NOTE: PATIENT AGITATED, ANXIOUS, REPETITIVELY TALKS TO SELF, ATIVAN 0.5 MG TAB PO GIVEN
[2019-03-22] MEDS: ACETAMINOPHEN 325 MG TABLET PO PRN (05:59)
--- NOTE | 2019-03-22 06:07 | NUR ---
GPS/RN NOTE: PATIENT'S GRIMACING WHILE HOLDING HER RIGHT THIGH, TYLENOL 650 MG TAB PO GIVEN.FACE
[2019-03-22] MEDS: PANTOPRAZOLE 40 MG TABLET.DR PO SCH (07:40)
[2019-03-22 08:00] VITALS: BP 165/76
[2019-03-22] MEDS: BENZTROPINE MESYLATE (1 MG) 1 MG TABLET PO SCH ×2 (08:51→20:04)
[2019-03-22] MEDS: DIVALPROEX SODIUM 125 MG CAP.SPRINK PO SCH ×2 (08:52→16:58)
[2019-03-22] MEDS: ISOSORBIDE MONONITRATE (30MG) 30 MG TAB.SR.24H PO SCH (08:52)
[2019-03-22] MEDS: hydrALAZINE HCL 50 MG TABLET PO SCH ×3 (08:53→16:59)
[2019-03-22] MEDS: MULTIVIT W/MINERALS 1 TAB TABLET PO SCH (08:53)
[2019-03-22] MEDS: METOPROLOL TARTRATE 25 MG TABLET PO SCH ×2 (08:53→21:35)
[2019-03-22] MEDS: risperiDONE-M 0.5 MG TAB.RAPDIS PO SCH ×2 (09:39→16:59)
--- NOTE | 2019-03-22 14:41 | NUR ---
GPS RN NOTES PATIENT BECOMES AGITATED, ATIVAN GIVEN PRESCRIBED. VITAL SIGNS STABLE. SAFETY MEASURES IN PLACE. WILL CONTINUE TO MONITOR PATIENT.
[2019-03-22 16:00] VITALS: BP 130/69
[2019-03-22 20:12] VITALS: BP 163/73
[2019-03-22] MEDS: ATORVASTATIN 40 MG TABLET PO SCH (21:34)
[2019-03-22] MEDS: GABAPENTIN 100 MG CAPSULE PO SCH (21:36)
[2019-03-22] MEDS: ENOXAPARIN SODIUM 40 MG/0.4 ML DISP.SYRIN SQ SCH (21:40)
[2019-03-23] MEDS: CEPHALEXIN MONOHYDRATE 250 MG CAPSULE PO SCH ×2 (04:37→13:55)
[2019-03-23] MEDS: PANTOPRAZOLE 40 MG TABLET.DR PO SCH (07:43)
[2019-03-23 08:00] VITALS: BP 154/98
[2019-03-23] MEDS: BENZTROPINE MESYLATE (1 MG) 1 MG TABLET PO SCH ×2 (08:19→20:05)
[2019-03-23] MEDS: ISOSORBIDE MONONITRATE (30MG) 30 MG TAB.SR.24H PO SCH (08:20)
[2019-03-23] MEDS: DIVALPROEX SODIUM 125 MG CAP.SPRINK PO SCH ×2 (08:21→16:54)
[2019-03-23] MEDS: METOPROLOL TARTRATE 25 MG TABLET PO SCH ×2 (08:21→21:09)
[2019-03-23] MEDS: hydrALAZINE HCL 50 MG TABLET PO SCH ×3 (08:21→16:51)
[2019-03-23] MEDS: MULTIVIT W/MINERALS 1 TAB TABLET PO SCH (08:22)
[2019-03-23] MEDS: risperiDONE-M 0.5 MG TAB.RAPDIS PO SCH ×2 (08:22→16:54)
--- NOTE | 2019-03-23 10:31 | NUR ---
Probable Cause (PC) Hearing Notification: SW called the pts son, Brendan ([phone]), and informed him that the pt will be having a PC hearing today around 3:30 and explained what the hearing entails and what the possible outcomes are. Pts son stated that he understands and requested that the SW ask the pts MD to give him a call regarding the pts medications.
--- NOTE | 2019-03-23 13:46 | NUR ---
RN NOTE- PT COMBATIVE STRIKING OUT. ATIVAN 0.5 MG GIVEN AT THIS TIME.
[2019-03-23] MEDS: LORAZEPAM 0.5 MG TABLET PO PRN (13:55)
[2019-03-23 16:19] VITALS: BP 100/54
[2019-03-23 20:07] VITALS: BP 120/61
[2019-03-23 21:00] VITALS: BP 123/61
[2019-03-23] MEDS: ATORVASTATIN 40 MG TABLET PO SCH (21:08)
[2019-03-23] MEDS: GABAPENTIN 100 MG CAPSULE PO SCH (21:09)
--- NOTE | 2019-03-23 21:39 | NUR ---
GPS RN NOTES: PT REFUSED LOVENOX MEDICATION DUE. PT YELLING, " NO! I DONT WANT THAT! LEAVE ME ALONE!" EXPLAIN RISKS AND BENEFITS X3 STILL REFUSED. CONTINUE TO MONITOR.
[2019-03-23] MEDS: ENOXAPARIN SODIUM 40 MG/0.4 ML DISP.SYRIN SQ SCH (21:41)
[2019-03-23] MEDS: TEMAZEPAM 15 MG CAPSULE PO PRN (22:43)
[2019-03-24] MEDS: LORAZEPAM 0.5 MG TABLET PO PRN ×2 (01:43→07:47)
--- NOTE | 2019-03-24 01:48 | NUR ---
GPS RN NOTES: PT ANXIOUS AND YELLING AT STAFF. VITALS ARE WNL. ADMINISTERED ATIVAN 0.5MG PO PRN ORDERED
[2019-03-24 01:50] VITALS: BP 143/76
[2019-03-24] MEDS: PANTOPRAZOLE 40 MG TABLET.DR PO SCH (07:35)
[2019-03-24] MEDS: BENZTROPINE MESYLATE (1 MG) 1 MG TABLET PO SCH ×2 (07:35→20:59)
--- NOTE | 2019-03-24 07:47 | NUR ---
RN NOTE- PT ANXIOUS, YELLING IN ROOM. ATIVAN 0.5 MG GIVEN. CONT 1:1 AND MONITORING
[2019-03-24 08:00] VITALS: BP 120/55
[2019-03-24] MEDS: MULTIVIT W/MINERALS 1 TAB TABLET PO SCH (08:42)
[2019-03-24] MEDS: DIVALPROEX SODIUM 125 MG CAP.SPRINK PO SCH ×2 (08:42→16:44)
[2019-03-24] MEDS: ISOSORBIDE MONONITRATE (30MG) 30 MG TAB.SR.24H PO SCH (08:45)
[2019-03-24] MEDS: METOPROLOL TARTRATE 25 MG TABLET PO SCH ×2 (08:46→21:04)
[2019-03-24] MEDS: risperiDONE-M 0.5 MG TAB.RAPDIS PO SCH ×2 (08:52→16:44)
[2019-03-24] MEDS: hydrALAZINE HCL 50 MG TABLET PO SCH ×3 (09:00→16:57)
[2019-03-24 16:00] VITALS: BP 132/74
[2019-03-24 18:27] LABS: BASOPHILS % (AUTO) 0.4 % (0.0-2.0); EOSINOPHILS % (AUTO) 4.1 % (0.0-6.0); HEMATOCRIT 31 % (33-45); LYMPHOCYTES % (AUTO) 35.5 % (20.0-44.0); MEAN CORPUSCULAR HGB CONC 33 g/dl (31.0-36.0); MEAN CORPUSCULAR VOLUME 96 fL (82-100); MONOCYTES # (AUTO) 0.5 /CMM (0.1-1.30); MONOCYTES % (AUTO) 8.7 % (2.0-12.0); NEUTROPHILS # (AUTO) 2.9 /CMM (1.8-8.9); NEUTROPHILS % (AUTO) 51.3 % (43.0-81.0); PLATELET COUNT (AUTO) 211 /CMM (150-450); RED BLOOD CELL COUNT(AUTO) 3.19 MIL/uL (4.0-5.2); WHITE BLOOD COUNT (AUTO) 5.7 K/uL (4.3-11.0)
[2019-03-24 18:44] LABS: ALBUMIN 2.8 g/dL (3.4-5.0); BILIRUBIN,TOTAL 0.2 mg/dL (0.2-1.0); CALCIUM, SERUM 8.2 mg/dL (8.5-10.1); POTASSIUM 4.5 mmol/L (3.5-5.1); TOTAL PROTEIN, SERUM 6.7 g/dL (6.4-8.2)
[2019-03-24] MEDS: GABAPENTIN 100 MG CAPSULE PO SCH (21:04)
[2019-03-24] MEDS: ATORVASTATIN 40 MG TABLET PO SCH (21:04)
[2019-03-24] MEDS: ENOXAPARIN SODIUM 40 MG/0.4 ML DISP.SYRIN SQ SCH (21:11)
[2019-03-24 21:12] VITALS: BP 121/84
[2019-03-25] MEDS: TEMAZEPAM 15 MG CAPSULE PO PRN (01:35)
--- NOTE | 2019-03-25 06:56 | NUR ---
GPS-RN UNABLE TO COLLECT URINE PATIENT IS UNCOOPERATIVE. WILL ENDORSE TO ONCOMING SHIFT FOR CONTINUITY OF CARE.
[2019-03-25] MEDS: BENZTROPINE MESYLATE (1 MG) 1 MG TABLET PO SCH ×2 (07:40→20:59)
[2019-03-25] MEDS: PANTOPRAZOLE 40 MG TABLET.DR PO SCH (07:40)
[2019-03-25 08:00] VITALS: BP 136/66
[2019-03-25] MEDS: risperiDONE-M 0.5 MG TAB.RAPDIS PO SCH ×2 (08:26→16:21)
[2019-03-25] MEDS: DIVALPROEX SODIUM 125 MG CAP.SPRINK PO SCH ×2 (08:26→16:21)
[2019-03-25] MEDS: ISOSORBIDE MONONITRATE (30MG) 30 MG TAB.SR.24H PO SCH (08:27)
[2019-03-25] MEDS: hydrALAZINE HCL 50 MG TABLET PO SCH ×2 (08:27→16:22)
[2019-03-25] MEDS: METOPROLOL TARTRATE 25 MG TABLET PO SCH ×2 (08:27→21:00)
[2019-03-25] MEDS: MULTIVIT W/MINERALS 1 TAB TABLET PO SCH (08:33)
[2019-03-25] MEDS: LORAZEPAM 0.5 MG TABLET PO PRN (11:05)
--- NOTE | 2019-03-25 11:05 | NUR ---
RN NOTE- PT AGITATED. ATIVAN 0.5 MG GIVEN. MONITOR BEHAVIOR
[2019-03-25 12:45] LABS: APPEARANCE,URINE CLEAR (CLEAR); BILIRUBIN,URINE NEGATIVE (NEGATIVE); BLOOD, URINE NEGATIVE Ery/uL (NEGATIVE); COLOR,URINE YELLOW (YELLOW); KETONES,URINE NEGATIVE (NEGATIVE); LEUKOCYTE ESTERASE ,URINE NEGATIVE (NEGATIVE); NITRITE, URINE NEGATIVE (NEGATIVE); PROTEIN,URINE NEGATIVE (NEGATIVE); UGLUCOSE NEGATIVE (NEGATIVE); UROBILINOGEN,URINE 0.2 EU/dL (0.2)
[2019-03-25] MEDS ORDERED: LORAZEPAM 0.5 MG TABLET PO STA (13:35)
--- NOTE | 2019-03-25 13:54 | NUR ---
RN NOTE- AGITATION CONTINUES. DR KEBEDE ORDERED ATIVAN 0.5 MG PO X ONE DOSE NOW. CONTINUE TO MONITOR
[2019-03-25 16:00] VITALS: BP 126/92
[2019-03-25 21:02] VITALS: BP 130/62
[2019-03-25] MEDS: ENOXAPARIN SODIUM 40 MG/0.4 ML DISP.SYRIN SQ SCH (22:00)
[2019-03-25] MEDS: GABAPENTIN 100 MG CAPSULE PO SCH (22:04)
[2019-03-25] MEDS: ATORVASTATIN 40 MG TABLET PO SCH (22:04)
--- NOTE | 2019-03-25 22:15 | NUR ---
GPS RN NOTES: PT REFUSED LOVENOX MEDICATION DUE. PT YELLING, " LEAVE ME ALONE!" EXPLAIN RISKS AND BENEFITS X3 STILL REFUSED. CONTINUE TO MONITOR.
[2019-03-26 08:00] VITALS: BP 150/77
[2019-03-26] MEDS: PANTOPRAZOLE 40 MG TABLET.DR PO SCH (08:46)
[2019-03-26] MEDS: DIVALPROEX SODIUM 125 MG CAP.SPRINK PO SCH ×2 (08:47→17:00)
[2019-03-26] MEDS: risperiDONE-M 0.5 MG TAB.RAPDIS PO SCH ×2 (08:47→17:00)
[2019-03-26] MEDS: MULTIVIT W/MINERALS 1 TAB TABLET PO SCH (08:47)
[2019-03-26] MEDS: BENZTROPINE MESYLATE (1 MG) 1 MG TABLET PO SCH ×2 (08:47→19:51)
[2019-03-26] MEDS: ISOSORBIDE MONONITRATE (30MG) 30 MG TAB.SR.24H PO SCH (08:48)
[2019-03-26] MEDS: METOPROLOL TARTRATE 25 MG TABLET PO SCH ×2 (08:48→21:01)
[2019-03-26] MEDS: hydrALAZINE HCL 50 MG TABLET PO SCH ×2 (08:49→17:00)
[2019-03-26 15:49] LABS: BASOPHILS % (AUTO) 0.3 % (0.0-2.0); EOSINOPHILS % (AUTO) 1.8 % (0.0-6.0); HEMATOCRIT 34 % (33-45); HEMOGLOBIN 11.2 g/dL (11.5-14.8); LYMPHOCYTES # (AUTO) 1.6 /CMM (0.8-4.8); LYMPHOCYTES % (AUTO) 22.6 % (20.0-44.0); MEAN CORPUSCULAR HGB CONC 33 g/dl (31.0-36.0); MEAN CORPUSCULAR VOLUME 95 fL (82-100); MONOCYTES # (AUTO) 0.6 /CMM (0.1-1.30); MONOCYTES % (AUTO) 8.7 % (2.0-12.0); NEUTROPHILS # (AUTO) 4.7 /CMM (1.8-8.9); NEUTROPHILS % (AUTO) 66.6 % (43.0-81.0); PLATELET COUNT (AUTO) 240 /CMM (150-450); WHITE BLOOD COUNT (AUTO) 7.1 K/uL (4.3-11.0)
[2019-03-26 16:00] VITALS: BP 152/74
[2019-03-26 16:14] LABS: ALBUMIN 3.2 g/dL (3.4-5.0); BILIRUBIN,TOTAL 0.3 mg/dL (0.2-1.0); POTASSIUM 4.5 mmol/L (3.5-5.1); TOTAL PROTEIN, SERUM 7.5 g/dL (6.4-8.2)
--- NOTE | 2019-03-26 18:07 | NUR ---
GPS RN NOTE PATIENT REFUSED ALL OF HER AFTERNOON MEDICATIONS.
[2019-03-26 20:00] VITALS: BP 117/51
[2019-03-26 20:49] VITALS: BP 117/51
[2019-03-26] MEDS: ATORVASTATIN 40 MG TABLET PO SCH (21:02)
[2019-03-26] MEDS: GABAPENTIN 100 MG CAPSULE PO SCH (21:02)
[2019-03-26] MEDS: ENOXAPARIN SODIUM 40 MG/0.4 ML DISP.SYRIN SQ SCH (21:04)
[2019-03-27] MEDS: PANTOPRAZOLE 40 MG TABLET.DR PO SCH (07:37)
[2019-03-27 08:00] VITALS: BP 135/61
[2019-03-27] MEDS: risperiDONE-M 0.5 MG TAB.RAPDIS PO SCH ×2 (08:23→16:51)
[2019-03-27] MEDS: MULTIVIT W/MINERALS 1 TAB TABLET PO SCH (08:23)
[2019-03-27] MEDS: BENZTROPINE MESYLATE (1 MG) 1 MG TABLET PO SCH ×2 (08:23→20:48)
[2019-03-27] MEDS: DIVALPROEX SODIUM 125 MG CAP.SPRINK PO SCH ×2 (08:23→16:51)
[2019-03-27] MEDS: METOPROLOL TARTRATE 25 MG TABLET PO SCH ×2 (08:24→20:49)
[2019-03-27] MEDS: ISOSORBIDE MONONITRATE (30MG) 30 MG TAB.SR.24H PO SCH (08:24)
[2019-03-27] MEDS: hydrALAZINE HCL 50 MG TABLET PO SCH ×2 (08:26→16:53)
[2019-03-27 16:00] VITALS: BP 135/59
[2019-03-27 19:41] LABS: ALANINE AMINOTRANSFERASE 27 U/L (12-78); ALBUMIN 3.1 g/dL (3.4-5.0); ALKALINE PHOSPHATASE 86 U/L (46-116); ASPARTATE AMINOTRANSFERASE 28 U/L (15-37); BILIRUBIN,TOTAL 0.4 mg/dL (0.2-1.0); CALCIUM, SERUM 8.8 mg/dL (8.5-10.1); CARBON DIOXIDE 26 mmol/L (21-32); CHLORIDE 106 mmol/L (98-107); GLUCOSE 135 mg/dL (74-106); POTASSIUM 4.4 mmol/L (3.5-5.1); SODIUM SERUM 143 mmol/L (136-145); TOTAL PROTEIN, SERUM 7.2 g/dL (6.4-8.2); UREA NITROGEN, BLOOD 33 mg/dL (7-18)
[2019-03-27 20:08] VITALS: BP 142/67
[2019-03-27] MEDS: ATORVASTATIN 40 MG TABLET PO SCH (21:02)
[2019-03-27] MEDS: GABAPENTIN 100 MG CAPSULE PO SCH (21:02)
[2019-03-27] MEDS: ENOXAPARIN SODIUM 40 MG/0.4 ML DISP.SYRIN SQ SCH (21:34)
[2019-03-28] MEDS: CLONIDINE HCL 0.1MG/24H PTWK 1 EA PATCH TD SCH (00:53)
[2019-03-28 07:41] LABS: BASOPHILS # (AUTO) 0.1 /CMM (0.0-0.2); BASOPHILS % (AUTO) 0.8 % (0.0-2.0); EOSINOPHILS % (AUTO) 3.4 % (0.0-6.0); HEMATOCRIT 31 % (33-45); HEMOGLOBIN 10.4 g/dL (11.5-14.8); LYMPHOCYTES # (AUTO) 2.7 /CMM (0.8-4.8); LYMPHOCYTES % (AUTO) 42.8 % (20.0-44.0); MEAN CORPUSCULAR HGB CONC 33 g/dl (31.0-36.0); MEAN CORPUSCULAR VOLUME 95 fL (82-100); MONOCYTES # (AUTO) 0.9 /CMM (0.1-1.30); MONOCYTES % (AUTO) 15.1 % (2.0-12.0); NEUTROPHILS # (AUTO) 2.4 /CMM (1.8-8.9); NEUTROPHILS % (AUTO) 37.9 % (43.0-81.0); PLATELET COUNT (AUTO) 205 /CMM (150-450); WHITE BLOOD COUNT (AUTO) 6.3 K/uL (4.3-11.0)
[2019-03-28 08:00] VITALS: BP 173/69
[2019-03-28] MEDS: PANTOPRAZOLE 40 MG TABLET.DR PO SCH (08:09)
[2019-03-28] MEDS: BENZTROPINE MESYLATE (1 MG) 1 MG TABLET PO SCH ×2 (08:14→20:20)
[2019-03-28] MEDS: DIVALPROEX SODIUM 125 MG CAP.SPRINK PO SCH ×2 (08:14→17:07)
[2019-03-28] MEDS: risperiDONE-M 0.5 MG TAB.RAPDIS PO SCH ×2 (08:14→17:08)
[2019-03-28] MEDS: hydrALAZINE HCL 50 MG TABLET PO SCH ×2 (08:15→17:00)
[2019-03-28] MEDS: ISOSORBIDE MONONITRATE (30MG) 30 MG TAB.SR.24H PO SCH (08:15)
[2019-03-28] MEDS: MULTIVIT W/MINERALS 1 TAB TABLET PO SCH (08:16)
[2019-03-28] MEDS: METOPROLOL TARTRATE 25 MG TABLET PO SCH ×2 (08:19→21:33)
[2019-03-28 16:00] VITALS: BP 118/52
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
[2019-03-28 21:07] VITALS: BP 116/60
[2019-03-28] MEDS: ATORVASTATIN 40 MG TABLET PO SCH (21:32)
[2019-03-28] MEDS: GABAPENTIN 100 MG CAPSULE PO SCH (21:33)
[2019-03-28] MEDS: ENOXAPARIN SODIUM 40 MG/0.4 ML DISP.SYRIN SQ SCH (21:51)
[2019-03-29] MEDS: TEMAZEPAM 15 MG CAPSULE PO PRN (00:49)
--- NOTE | 2019-03-29 01:00 | NUR ---
RN NOTE: PT VISIBLY AGITATED AND NOT ABLE TO SLEEP. MEDICATED WITH RESTORIL PRN PO AT 0100
--- NOTE | 2019-03-29 02:00 | NUR ---
RN NOTE: PT CONT TO BE UNABLE TO SLEEP AND VISIBLY AGITATED. MEDICATED WITH ATIVAN PRN PO
[2019-03-29] MEDS: LORAZEPAM 0.5 MG TABLET PO PRN (02:02)
--- NOTE | 2019-03-29 02:29 | NUR ---
GPS/RN NOTE: REQUESTED FOR 1:1 SITTER, PATIENT IS CONFUSED, A/O X1, ATTEMPTS TO GET UP IN BED. RN STUDIO DESIGNER WAS MADE AWARE.
--- NOTE | 2019-03-29 04:36 | NUR ---
RN NOTE: PT SLEEPING. NO ACUTE DISTRESS NOTED. EQUAL RISE AND FALL OF CHEST WITH INSPIRATION AND EXPIRATION. WILL CONT TO MONITOR.
[2019-03-29 08:00] VITALS: BP 149/79
[2019-03-29] MEDS: BENZTROPINE MESYLATE (1 MG) 1 MG TABLET PO SCH ×2 (08:55→20:31)
[2019-03-29] MEDS: PANTOPRAZOLE 40 MG TABLET.DR PO SCH (08:56)
[2019-03-29] MEDS: risperiDONE-M 0.5 MG TAB.RAPDIS PO SCH ×3 (08:56→17:00)
[2019-03-29] MEDS: ISOSORBIDE MONONITRATE (30MG) 30 MG TAB.SR.24H PO SCH (08:56)
[2019-03-29] MEDS: MULTIVIT W/MINERALS 1 TAB TABLET PO SCH (08:56)
[2019-03-29] MEDS: METOPROLOL TARTRATE 25 MG TABLET PO SCH ×2 (08:57→20:32)
[2019-03-29] MEDS: hydrALAZINE HCL 50 MG TABLET PO SCH ×3 (08:57→17:00)
[2019-03-29] MEDS: DIVALPROEX SODIUM 125 MG CAP.SPRINK PO SCH ×3 (08:57→17:00)
[2019-03-29 16:00] VITALS: BP 155/65
[2019-03-29 20:48] VITALS: BP 145/64
[2019-03-29] MEDS: ATORVASTATIN 40 MG TABLET PO SCH (21:45)
[2019-03-29] MEDS: GABAPENTIN 100 MG CAPSULE PO SCH (21:46)
[2019-03-29] MEDS: ENOXAPARIN SODIUM 40 MG/0.4 ML DISP.SYRIN SQ SCH (21:46)
--- NOTE | 2019-03-29 21:48 | NUR ---
RN NOTE: MEDICATION LIPITOR, NUERONTIN, AND LOVENOX NON ADMINISTERED. PT SLEEPING. NO ACUTE DISTRESS NOTED. EQUAL RISE AND FALL OF CHEST WITH INSPIRATION AND EXPIRATION. WILL CONT TO MONITOR.
[2019-03-30 08:00] VITALS: BP 155/84
[2019-03-30] MEDS: ISOSORBIDE MONONITRATE (30MG) 30 MG TAB.SR.24H PO SCH (08:18)
[2019-03-30] MEDS: MULTIVIT W/MINERALS 1 TAB TABLET PO SCH (08:18)
[2019-03-30] MEDS: risperiDONE-M 0.5 MG TAB.RAPDIS PO SCH ×4 (08:18→21:35)
[2019-03-30] MEDS: DIVALPROEX SODIUM 125 MG CAP.SPRINK PO SCH ×2 (08:18→16:39)
[2019-03-30] MEDS: PANTOPRAZOLE 40 MG TABLET.DR PO SCH (08:19)
[2019-03-30] MEDS: hydrALAZINE HCL 50 MG TABLET PO SCH ×2 (08:19→16:39)
[2019-03-30] MEDS: BENZTROPINE MESYLATE (1 MG) 1 MG TABLET PO SCH ×2 (08:20→20:01)
--- NOTE | 2019-03-30 08:25 | NUR ---
Family Contact: JASMINE called the pts son, Brendan ([phone]), and informed him that the pt has possible dc orders today. He stated that he is not comfortable with the discharge for today because he observed that the pt is over medicated and that the pt fell the previous day. He expressed his concerns that the discharge facility will not be able to manage the pt and will send her back to the hospital. JASMINE stated that she would speak to the pts MD and will call the son back.
[2019-03-30] MEDS: METOPROLOL TARTRATE 25 MG TABLET PO SCH ×2 (08:29→21:35)
--- NOTE | 2019-03-30 08:57 | NUR ---
Family Contact: SW called the pts son, Brendan ([phone]), and informed him that the SW spoke to the MD and the pt is not going to be discharged today.
[2019-03-30 11:11] LABS: BASOPHILS % (AUTO) 0.9 % (0.0-2.0); EOSINOPHILS % (AUTO) 2.9 % (0.0-6.0); HEMATOCRIT 32 % (33-45); HEMOGLOBIN 10.4 g/dL (11.5-14.8); LYMPHOCYTES # (AUTO) 1.7 /CMM (0.8-4.8); LYMPHOCYTES % (AUTO) 33.8 % (20.0-44.0); MEAN CORPUSCULAR HGB CONC 33 g/dl (31.0-36.0); MEAN CORPUSCULAR VOLUME 94 fL (82-100); MONOCYTES # (AUTO) 0.6 /CMM (0.1-1.30); MONOCYTES % (AUTO) 12.5 % (2.0-12.0); NEUTROPHILS # (AUTO) 2.5 /CMM (1.8-8.9); NEUTROPHILS % (AUTO) 49.9 % (43.0-81.0); PLATELET COUNT (AUTO) 203 /CMM (150-450); RED BLOOD CELL COUNT(AUTO) 3.34 MIL/uL (4.0-5.2); WHITE BLOOD COUNT (AUTO) 4.9 K/uL (4.3-11.0)
[2019-03-30 11:14] LABS: APPEARANCE,URINE CLEAR (CLEAR); BILIRUBIN,URINE NEGATIVE (NEGATIVE); BLOOD, URINE NEGATIVE Ery/uL (NEGATIVE); COLOR,URINE YELLOW (YELLOW); KETONES,URINE NEGATIVE (NEGATIVE); LEUKOCYTE ESTERASE ,URINE NEGATIVE (NEGATIVE); NITRITE, URINE NEGATIVE (NEGATIVE); PROTEIN,URINE NEGATIVE (NEGATIVE); UGLUCOSE NEGATIVE (NEGATIVE); UROBILINOGEN,URINE 0.2 EU/dL (0.2)
[2019-03-30 11:16] LABS: CALCIUM, SERUM 8.5 mg/dL (8.5-10.1); CREATININE 0.9 mg/dL (0.6-1.3); POTASSIUM 4.4 mmol/L (3.5-5.1)
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
[2019-03-30 16:00] VITALS: BP 160/75
[2019-03-30 20:08] VITALS: BP 153/70
[2019-03-30] MEDS: ATORVASTATIN 40 MG TABLET PO SCH (21:35)
[2019-03-30] MEDS: GABAPENTIN 100 MG CAPSULE PO SCH (21:35)
[2019-03-30] MEDS: ENOXAPARIN SODIUM 40 MG/0.4 ML DISP.SYRIN SQ SCH (21:40)
[2019-03-31] MEDS: PANTOPRAZOLE 40 MG TABLET.DR PO SCH (07:44)
[2019-03-31] MEDS: BENZTROPINE MESYLATE (1 MG) 1 MG TABLET PO SCH ×2 (07:44→20:28)
[2019-03-31 08:00] VITALS: BP 131/98
[2019-03-31] MEDS: hydrALAZINE HCL 50 MG TABLET PO SCH ×2 (08:13→17:00)
[2019-03-31] MEDS: METOPROLOL TARTRATE 25 MG TABLET PO SCH ×2 (08:13→20:29)
[2019-03-31] MEDS: DIVALPROEX SODIUM 125 MG CAP.SPRINK PO SCH ×2 (08:14→17:21)
[2019-03-31] MEDS: MULTIVIT W/MINERALS 1 TAB TABLET PO SCH (08:14)
[2019-03-31] MEDS: ISOSORBIDE MONONITRATE (30MG) 30 MG TAB.SR.24H PO SCH (08:14)
[2019-03-31] MEDS: risperiDONE-M 0.5 MG TAB.RAPDIS PO SCH ×3 (08:14→21:15)
--- NOTE | 2019-03-31 15:49 | NUR ---
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
[2019-03-31 16:00] VITALS: BP 109/57
[2019-03-31 20:52] VITALS: BP 132/61
[2019-03-31] MEDS: ATORVASTATIN 40 MG TABLET PO SCH (21:14)
[2019-03-31] MEDS: GABAPENTIN 100 MG CAPSULE PO SCH (21:14)
[2019-03-31] MEDS: ENOXAPARIN SODIUM 40 MG/0.4 ML DISP.SYRIN SQ SCH (22:18)
[2019-03-31] MEDS: TEMAZEPAM 15 MG CAPSULE PO PRN (22:57)
--- NOTE | 2019-03-31 23:24 | NUR ---
GPS RN NOTES: PT UNABLE TO GO TO SLEEP. OFFERED RESTORIL 15MG PO PRN ORDERED. PT AGREED. ADMINISTERED MEDICATION. PT TOLERATED WELL. CONTINUE TO MONITOR.
[2019-04-01 08:00] VITALS: BP_SYST 107; BP_SYST 150; BP_DIAS 52; BP_DIAS 68
[2019-04-01] MEDS: DIVALPROEX SODIUM 125 MG CAP.SPRINK PO SCH ×2 (08:18→16:27)
[2019-04-01] MEDS: ISOSORBIDE MONONITRATE (30MG) 30 MG TAB.SR.24H PO SCH (08:19)
[2019-04-01] MEDS: MULTIVIT W/MINERALS 1 TAB TABLET PO SCH (08:20)
[2019-04-01] MEDS: risperiDONE-M 0.5 MG TAB.RAPDIS PO SCH ×3 (08:20→21:26)
[2019-04-01] MEDS: hydrALAZINE HCL 50 MG TABLET PO SCH ×2 (08:20→16:27)
[2019-04-01] MEDS: PANTOPRAZOLE 40 MG TABLET.DR PO SCH (08:20)
[2019-04-01] MEDS: BENZTROPINE MESYLATE (1 MG) 1 MG TABLET PO SCH ×2 (08:21→20:57)
[2019-04-01] MEDS: METOPROLOL TARTRATE 25 MG TABLET PO SCH ×2 (08:22→21:25)
[2019-04-01] MEDS: LORAZEPAM 0.5 MG TABLET PO PRN (15:30)
[2019-04-01 16:00] VITALS: BP 146/70
[2019-04-01 21:04] VITALS: BP 154/64
[2019-04-01] MEDS: ATORVASTATIN 40 MG TABLET PO SCH (21:26)
[2019-04-01] MEDS: GABAPENTIN 100 MG CAPSULE PO SCH (21:26)
[2019-04-01] MEDS: ENOXAPARIN SODIUM 40 MG/0.4 ML DISP.SYRIN SQ SCH (21:27)
[2019-04-01 22:00] VITALS: BP 133/82
[2019-04-01] MEDS: TEMAZEPAM 15 MG CAPSULE PO PRN (23:44)
[2019-04-02 08:00] VITALS: BP 124/60
[2019-04-02] MEDS: hydrALAZINE HCL 50 MG TABLET PO SCH ×2 (09:00→16:26)
[2019-04-02] MEDS: METOPROLOL TARTRATE 25 MG TABLET PO SCH ×2 (09:00→21:49)
[2019-04-02] MEDS: ISOSORBIDE MONONITRATE (30MG) 30 MG TAB.SR.24H PO SCH (09:00)
--- NOTE | 2019-04-02 09:29 | NUR ---
DR. KEBEDE CALLED GAVE AN ORDER TO LABS FOR TOMORROW AND PTLexi CARTAGENA.
[2019-04-02] MEDS: MULTIVIT W/MINERALS 1 TAB TABLET PO SCH (10:02)
[2019-04-02] MEDS: risperiDONE-M 0.5 MG TAB.RAPDIS PO SCH ×3 (10:02→21:51)
[2019-04-02] MEDS: PANTOPRAZOLE 40 MG TABLET.DR PO SCH (10:02)
[2019-04-02] MEDS: DIVALPROEX SODIUM 125 MG CAP.SPRINK PO SCH ×2 (10:02→16:28)
[2019-04-02] MEDS: BENZTROPINE MESYLATE (1 MG) 1 MG TABLET PO SCH ×2 (10:02→20:27)
--- NOTE | 2019-04-02 11:25 | NUR ---
Family Contact: JASMINE called the pts son, Brendan ([phone]), and informed him that there is no discharge date for the pt at this time but the pt has been improving behaviorally. JASMINE stated that the plan is still for the pt to be discharged to [facility]. SW and the pt discussed how the pt has not been able to walk appropriately and SW stated that the MD will address these concerns.
[2019-04-02 16:00] VITALS: BP 125/51
[2019-04-02 20:44] VITALS: BP 156/70
[2019-04-02] MEDS: ATORVASTATIN 40 MG TABLET PO SCH (21:50)
[2019-04-02] MEDS: GABAPENTIN 100 MG CAPSULE PO SCH (21:50)
[2019-04-02] MEDS: ENOXAPARIN SODIUM 40 MG/0.4 ML DISP.SYRIN SQ SCH (21:52)
[2019-04-03] MEDS: TEMAZEPAM 15 MG CAPSULE PO PRN (01:07)
[2019-04-03 07:04] LABS: BASOPHILS # (AUTO) 0.1 /CMM (0.0-0.2); EOSINOPHILS % (AUTO) 2.9 % (0.0-6.0); HEMATOCRIT 36 % (33-45); HEMOGLOBIN 11.6 g/dL (11.5-14.8); LYMPHOCYTES # (AUTO) 2.6 /CMM (0.8-4.8); LYMPHOCYTES % (AUTO) 41.8 % (20.0-44.0); MEAN CORPUSCULAR HGB CONC 33 g/dl (31.0-36.0); MEAN CORPUSCULAR VOLUME 95 fL (82-100); MONOCYTES # (AUTO) 0.7 /CMM (0.1-1.30); MONOCYTES % (AUTO) 12.1 % (2.0-12.0); NEUTROPHILS # (AUTO) 2.6 /CMM (1.8-8.9); NEUTROPHILS % (AUTO) 42.2 % (43.0-81.0); PLATELET COUNT (AUTO) 204 /CMM (150-450); RED BLOOD CELL COUNT(AUTO) 3.72 MIL/uL (4.0-5.2); WHITE BLOOD COUNT (AUTO) 6.1 K/uL (4.3-11.0)
[2019-04-03 07:48] LABS: ALBUMIN 2.9 g/dL (3.4-5.0); BILIRUBIN,TOTAL 0.2 mg/dL (0.2-1.0); CALCIUM, SERUM 9.1 mg/dL (8.5-10.1); POTASSIUM 4.3 mmol/L (3.5-5.1); TOTAL PROTEIN, SERUM 7.2 g/dL (6.4-8.2)
[2019-04-03 08:00] VITALS: BP 136/59
[2019-04-03] MEDS: MULTIVIT W/MINERALS 1 TAB TABLET PO SCH (08:23)
[2019-04-03] MEDS: BENZTROPINE MESYLATE (1 MG) 1 MG TABLET PO SCH ×2 (08:23→22:10)
[2019-04-03] MEDS: risperiDONE-M 0.5 MG TAB.RAPDIS PO SCH ×3 (08:23→22:09)
[2019-04-03] MEDS: DIVALPROEX SODIUM 125 MG CAP.SPRINK PO SCH ×2 (08:23→16:12)
[2019-04-03] MEDS: PANTOPRAZOLE 40 MG TABLET.DR PO SCH (08:23)
[2019-04-03] MEDS: METOPROLOL TARTRATE 25 MG TABLET PO SCH ×2 (08:24→22:09)
[2019-04-03] MEDS: ISOSORBIDE MONONITRATE (30MG) 30 MG TAB.SR.24H PO SCH (08:25)
[2019-04-03] MEDS: hydrALAZINE HCL 50 MG TABLET PO SCH ×2 (08:25→16:12)
[2019-04-03 16:00] VITALS: BP 130/63
--- NOTE | 2019-04-03 19:30 | NUR ---
GPS RN NOTE, RECEIVED PATIENT AWAKE AND IN BED, NO S/S OR COMPLAINTS OF PAIN AT THIS TIME. PATIENT IS DISPLAYING NO S/S OF APPARENT DISTRESS AT THIS TIME. PATIENT BREATHING IS UNLABORED WITH EQUAL RISE AND FALL OF THE CHEST. PATIENT IS ALERT AND ORIENTED X 1 ON ROOM AIR WITH A SPO2 98%. PATIENT HAS A ONE TO ONE SITTER FOR AGGRESSIVE BEHAVIOR WITH CARE. PATIENT IS ON CONTACT PRECAUTIONS FOR DIARRHEA. PATIENT IS COMPLIANT WITH MEDICATIONS, CONFUSED, ANXIOUS AT TIMES, SUSPICIOUS, PARANOID, UNPREDICTABLE, AND UNCOOPERATIVE. PATIENT DENIES SUICIDAL AND HOMICIDAL IDEATIONS AT THIS TIME. PATIENT ASSISTED WITH TURNING AND REPOSITIONING Q2HR AND PRN FOR COMFORT AND CIRCULATION. PATIENT HAS NO NEEDS AT THIS TIME. PATIENT EDUCATED ON THE USE OF THE CALL MO. PATIENT BED SIDE RAILS UP X 2 FOR SAFETY. PATIENT BED IS LOCKED, LOW, WITH BED ALARM ON. WILL CONTINUE TO MONITOR THIS PATIENT Q15 MINUTES WITH THE HELP OF STAFF TO MAINTAIN SAFETY.
[2019-04-03 20:40] VITALS: BP 123/57
[2019-04-03] MEDS: GABAPENTIN 100 MG CAPSULE PO SCH (22:09)
[2019-04-03] MEDS: ATORVASTATIN 40 MG TABLET PO SCH (22:09)
[2019-04-03] MEDS: ENOXAPARIN SODIUM 40 MG/0.4 ML DISP.SYRIN SQ SCH (22:10)
[2019-04-04] MEDS: CLONIDINE HCL 0.1MG/24H PTWK 1 EA PATCH TD SCH (00:19)
--- NOTE | 2019-04-04 00:19 | NUR ---
GPS RN NOTE, PATIENT VITAL SIGNS ARE FOLLOWS B/P 136 / 84, PULSE OF 76, REPARATIONS 19, TEMP 98.2, SPO2 97 %. APPLIED CLONIDINE HCL 0.1MG / 24 HR PATCH TD TO UPPER RIGHT POSTERIOR SHOULDER. PATCH TO BE APPLIED EVERY SATURDAY. NO OTHER PATCHES WERE FOUND ON PATIENT SKIN TO BE REMOVED AFTER HEAD TO TOE ASSESSMENT. PATIENT TOLERATED PROCEDURE WELL. WILL CONTINUE TO MONITOR THIS PATIENT WITH THE HELP OF STAFF.
[2019-04-04 08:00] VITALS: BP 154/69
[2019-04-04] MEDS: METOPROLOL TARTRATE 25 MG TABLET PO SCH ×2 (09:27→21:26)
[2019-04-04] MEDS: DIVALPROEX SODIUM 125 MG CAP.SPRINK PO SCH ×2 (09:27→18:47)
[2019-04-04] MEDS: MULTIVIT W/MINERALS 1 TAB TABLET PO SCH (09:28)
[2019-04-04] MEDS: ISOSORBIDE MONONITRATE (30MG) 30 MG TAB.SR.24H PO SCH (09:28)
[2019-04-04] MEDS: BENZTROPINE MESYLATE (1 MG) 1 MG TABLET PO SCH ×2 (09:28→20:21)
[2019-04-04] MEDS: PANTOPRAZOLE 40 MG TABLET.DR PO SCH (09:28)
[2019-04-04] MEDS: risperiDONE-M 0.5 MG TAB.RAPDIS PO SCH ×3 (09:28→21:26)
[2019-04-04] MEDS: LORAZEPAM 0.5 MG TABLET PO PRN ×2 (11:24→11:25)
--- NOTE | 2019-04-04 11:25 | NUR ---
GIVEN ATIVAN FOR AGITATION.HAS 1:1 SITTER.IN [place] CHAIR AT THIS TIME.
[2019-04-04 11:59] VITALS: BP 115/56
[2019-04-04] MEDS: hydrALAZINE HCL 50 MG TABLET PO SCH ×2 (12:00→17:35)
[2019-04-04 16:00] VITALS: BP 117/57
--- NOTE | 2019-04-04 19:30 | NUR ---
GPS RN NOTE, RECEIVED PATIENT AWAKE AND IN BED, NO S/S OR COMPLAINTS OF PAIN AT THIS TIME. PATIENT IS DISPLAYING NO S/S OF APPARENT DISTRESS AT THIS TIME. PATIENT BREATHING IS UNLABORED WITH EQUAL RISE AND FALL OF THE CHEST. PATIENT IS ALERT AND ORIENTED X 1 ON ROOM AIR WITH A SPO2 99%. PATIENT IS ON CONTACT PRECAUTIONS FOR DIARRHEA. PATIENT IS COMPLIANT WITH MEDICATIONS, CONFUSED, ANXIOUS AT TIMES, SUSPICIOUS, PARANOID, UNPREDICTABLE, AND UNCOOPERATIVE. PATIENT DENIES SUICIDAL AND HOMICIDAL IDEATIONS AT THIS TIME. PATIENT ASSISTED WITH TURNING AND REPOSITIONING Q2HR AND PRN FOR COMFORT AND CIRCULATION. PATIENT HAS NO NEEDS AT THIS TIME. PATIENT EDUCATED ON THE USE OF THE CALL MO. PATIENT BED SIDE RAILS UP X 2 FOR SAFETY. PATIENT BED IS LOCKED, LOW, WITH BED ALARM ON. WILL CONTINUE TO MONITOR THIS PATIENT Q15 MINUTES WITH THE HELP OF STAFF TO MAINTAIN SAFETY.
[2019-04-04 20:56] VITALS: BP 154/97
[2019-04-04] MEDS: ATORVASTATIN 40 MG TABLET PO SCH (21:25)
[2019-04-04] MEDS: GABAPENTIN 100 MG CAPSULE PO SCH (21:26)
[2019-04-04] MEDS: ENOXAPARIN SODIUM 40 MG/0.4 ML DISP.SYRIN SQ SCH (21:29)
[2019-04-04] MEDS: TEMAZEPAM 15 MG CAPSULE PO PRN (23:18)
--- NOTE | 2019-04-04 23:18 | NUR ---
GPS RN NOTE, PATIENT HAS A COMPLAINT OF NOT BEING ABLE TO SLEEP AND IS REQUESTING RESTORIL AT THIS TIME. PATIENT VITAL SIGNS ARE STABLE. GAVE RESTORIL 15MG PO HS PRN ORDERED. WILL REASSESS FOR INSOMNIA AND I WILL CONTINUE TO MONITOR THIS PATIENT.
[2019-04-05] MEDS: PANTOPRAZOLE 40 MG TABLET.DR PO SCH (07:36)
[2019-04-05 08:00] VITALS: BP 105/56
[2019-04-05] MEDS: METOPROLOL TARTRATE 25 MG TABLET PO SCH ×2 (08:03→22:04)
[2019-04-05] MEDS: ISOSORBIDE MONONITRATE (30MG) 30 MG TAB.SR.24H PO SCH (08:04)
[2019-04-05] MEDS: MULTIVIT W/MINERALS 1 TAB TABLET PO SCH (08:04)
[2019-04-05] MEDS: DIVALPROEX SODIUM 125 MG CAP.SPRINK PO SCH ×2 (08:04→17:29)
[2019-04-05] MEDS: hydrALAZINE HCL 50 MG TABLET PO SCH ×2 (08:06→17:29)
[2019-04-05] MEDS: BENZTROPINE MESYLATE (1 MG) 1 MG TABLET PO SCH ×2 (08:07→20:53)
[2019-04-05] MEDS: risperiDONE-M 0.5 MG TAB.RAPDIS PO SCH ×3 (08:08→22:13)
[2019-04-05 16:00] VITALS: BP 134/62
[2019-04-05] MEDS ORDERED: DOCUSATE SODIUM 100 MG CAPSULE PO SCH (17:00)
[2019-04-05 20:52] VITALS: BP 140/68
[2019-04-05] MEDS ORDERED: SENNOSIDES 8.6 MG TABLET PO SCH (22:00)
[2019-04-05] MEDS: GABAPENTIN 100 MG CAPSULE PO SCH (22:04)
[2019-04-05] MEDS: ATORVASTATIN 40 MG TABLET PO SCH (22:05)
[2019-04-05] MEDS: ENOXAPARIN SODIUM 40 MG/0.4 ML DISP.SYRIN SQ SCH (22:27)
[2019-04-06] MEDS: TEMAZEPAM 15 MG CAPSULE PO PRN (03:00)
--- NOTE | 2019-04-06 06:25 | NUR ---
PT HAS PRESCRIPTION FOR RISPERDAL 0.5MG 2 TABS/1MG. WHILE PULLING THE MED, I MISTAKINGLY TOOK ONE 0.5MG INSTEAD OF 2 TO MAKE IT 1MG THE PRESCRIBED DOSE. SO I LOGGED BACK IN TO GET ONE MORE 0.5MG MAKING IT 1MG.
--- NOTE | 2019-04-06 06:39 | NUR ---
PT REFUSED SKIN ASSESSMENT
[2019-04-06] MEDS: PANTOPRAZOLE 40 MG TABLET.DR PO SCH (07:30)
[2019-04-06 08:00] VITALS: BP 110/73
[2019-04-06] MEDS: hydrALAZINE HCL 50 MG TABLET PO SCH (08:00)
[2019-04-06] MEDS: ISOSORBIDE MONONITRATE (30MG) 30 MG TAB.SR.24H PO SCH (08:01)
[2019-04-06] MEDS: MULTIVIT W/MINERALS 1 TAB TABLET PO SCH (08:02)
[2019-04-06] MEDS: DIVALPROEX SODIUM 125 MG CAP.SPRINK PO SCH (08:02)
[2019-04-06] MEDS: risperiDONE-M 0.5 MG TAB.RAPDIS PO SCH (08:02)
[2019-04-06] MEDS: BENZTROPINE MESYLATE (1 MG) 1 MG TABLET PO SCH (08:04)
[2019-04-06 08:06] VITALS: BP 110/73
[2019-04-06] MEDS: METOPROLOL TARTRATE 25 MG TABLET PO SCH (08:06)
--- NOTE | 2019-04-06 09:06 | NUR ---
Family Contact: SW called the pts son, Brendan ([phone]), and left a voicemail message that informed him that the pt is going to be discharged to [facility] today.
--- NOTE | 2019-04-06 09:06 | NUR ---
Facility Contact: JASMINE contacted Sandra ([phone]) from [facility] and informed her that the pt is going to be discharged back to their facility today and she stated that there is a bed available.
--- NOTE | 2019-04-06 11:15 | NUR ---
RN NOTE: REPORT CALLED TO [facility] @ [phone]. REPORT GIVEN TO ELVIE GLASS
--- NOTE | 2019-04-06 11:25 | NUR ---
Discharge Note: Pt was discharged to [facility] ([facility]) located at [address] [place] [address]; ([phone]). Pt was transported via [facility] at 12PM. Pts son, Brendan ([phone]), was informed of the discharge via voicemail. Upon discharge, the pt appeared to be in an anxious mood and presented with a distressed affect. Pt appeared to be well groomed and appropriately dressed. Pt was alert and oriented x4. Pt denied both suicidal and homicidal ideation as well as auditory and visual hallucinations. Pt will be under the care of her psychiatrist, Dr. Erna Centeno, located at [address], [place] [address]; and her watchmaking teacher, Dr. Deepak Rowan, located at [address] [place] [address]; .
--- NOTE | 2019-04-06 11:45 | NUR ---
CALLED PT'S SON MANFRED TO INFORM HIM OF TRANSFER TO [facility]. L/M ON VM.
--- NOTE | 2019-04-06 12:15 | NUR ---
EMPLOYMENT LAW ATTORNEY NOTE" 78 Y/O FEMALE DISCHARGED TO [facility] IN STABLE CONDITION. COMPLIANT WITH MEDICATIONS, COOPERATIVE WITH TREATMENT PLANS. PT DENIES SI/HI AND INSTRUCTED TO GO TO THE CLOSEST er IF DEVELOPING SI/HI. BEHAVIOR IMPROVED, PSYCHIATRIC TX PLANS MET, MEDICAL TREATMENT PLANS DEFERRED FOR CONTINUAL MONITORING. EDUCATED PT ABOUT AFTER CARE PLAN AND COPY PROVIDED. RETURNED PERSONAL BELONGINGS TO PATIENT. MEDICATIONS RECONCILED WITH DR KEBEDE AND DR. MONIQUE. REPORT GIVEN TO ELVIE GLASS AT [facility] FOR CONTINUITY OF CARE. PT REFUSED TO SIGN DISCHARGE PAPER WORK. SKIN INTACT. PT LEFT THE UNIT VIA AMBULANCE AT 12:15.TRIP# [phone]
== END 2019-04-06 12:15 | DRG 885 ==
LOC: GPS 22:55
PROVIDERS: ADMIT Psychiatry & Neurology Psychosomatic Medicine; ATTEND Family Medicine
DX: F25.0 Schizoaffective disorder, bipolar type (principal); F01.50 Vascular dementia, unspecified severity, without behavioral disturbance, psychotic disturbance, mood disturbance, and anxiety; E11.65 Type 2 diabetes mellitus with hyperglycemia; N39.0 Urinary tract infection, site not specified; F23 Brief psychotic disorder; F41.9 Anxiety disorder, unspecified; E86.9 Volume depletion, unspecified; R55 Syncope and collapse; D63.8 Anemia in other chronic diseases classified elsewhere; Z86.73 Personal history of transient ischemic attack (TIA), and cerebral infarction without residual deficits; I10 Essential (primary) hypertension; I25.10 Atherosclerotic heart disease of native coronary artery without angina pectoris; J44.9 Chronic obstructive pulmonary disease, unspecified; K21.9 Gastro-esophageal reflux disease without esophagitis; K59.09 Other constipation; E78.5 Hyperlipidemia, unspecified; Z87.891 Personal history of nicotine dependence; Z88.0 Allergy status to penicillin; M17.10 Unilateral primary osteoarthritis, unspecified knee
CPT/HCPCS: 36415; 80048-TC; 80053-TC; 80061-TC; 80164-TC; 81000-TC; 82565-TC; 83735-TC; 85025-TC; 87081-TC; 87086-TC; 97116-TC; 97530-TC; J1650; J2060; J3490

== ENCOUNTER 2019-04-23 11:10 | Inpatient (IN) | payer MEDICARE, OTHER ==
[~2019-04-23] VITALS: Ht 165.1 cm; Wt 70.8 kg
[~2019-04-23 11:10] MED LIST changes: +CEPH-569 PO; +ENOX40DI SQ
--- NOTE | 2019-04-23 11:20 | NUR ---
BIB EMS C/O FEVER SINCE THIS MORNING. PATIENT A/OX1, RESISTIVE TO CARE, NEED ENCOURAGEMENT. BREATHING EVEN AND UNLABORED, SKIN DRY AND WARM TO TOUCH, NEEDS ATTENDE, ATTACHED TO THE AUTO BUMPER STRAIGHTENER.
[2019-04-23] MEDS ORDERED: IV NS 0.9% 500 ML BAG IV ONE (11:30)
--- NOTE | 2019-04-23 11:31 | NUR ---
MOVE SHEET SUBMITTED AND CALLED FOR TELE BED
[2019-04-23] MEDS ORDERED: DIVA125C2 PO (11:38)
[2019-04-23] MEDS ORDERED: RISP0.2515 PO ×2 (11:38)
[2019-04-23] MEDS ORDERED: DIVA250T4 PO (11:38)
[2019-04-23] MEDS ORDERED: BENZ0.5T43 PO (11:38)
[2019-04-23 11:52] LABS: BASOPHILS % (AUTO) 0.7 % (0.0-2.0); EOSINOPHILS % (AUTO) 4.2 % (0.0-6.0); HEMATOCRIT 27 % (33-45); HEMOGLOBIN 9.1 g/dL (11.5-14.8); LYMPHOCYTES # (AUTO) 1.5 /CMM (0.8-4.8); LYMPHOCYTES % (AUTO) 26.1 % (20.0-44.0); MEAN CORPUSCULAR HGB CONC 34 g/dl (31.0-36.0); MEAN CORPUSCULAR VOLUME 94 fL (82-100); MONOCYTES # (AUTO) 1.3 /CMM (0.1-1.30); MONOCYTES % (AUTO) 21.5 % (2.0-12.0); NEUTROPHILS # (AUTO) 2.8 /CMM (1.8-8.9); NEUTROPHILS % (AUTO) 47.5 % (43.0-81.0); PLATELET COUNT (AUTO) 224 /CMM (150-450); RED BLOOD CELL COUNT(AUTO) 2.91 MIL/uL (4.0-5.2); WHITE BLOOD COUNT (AUTO) 5.9 K/uL (4.3-11.0)
--- NOTE | 2019-04-23 12:00 | NUR ---
STRAIGHT CATHETER DONE VIA STERILE TECHNIQUE, PATIENT TOLERATED PROCEDURE AND SENT URINE TO LAB.
[2019-04-23 12:04] LABS: BILIRUBIN,DIRECT 0.2 mg/dL (0.0-0.2); BILIRUBIN,TOTAL 0.5 mg/dL (0.2-1.0); CALCIUM, SERUM 8.4 mg/dL (8.5-10.1); POTASSIUM 3.8 mmol/L (3.5-5.1); TOTAL PROTEIN, SERUM 6.7 g/dL (6.4-8.2)
[2019-04-23] MEDS ORDERED: OSELTAMIVIR PHOSPHATE 75 MG CAPSULE PO ONE (12:30)
[2019-04-23] MEDS ORDERED: ASPIRIN 300 MG/SUPP.RECT RC ONE ×2 (12:30→12:37)
[2019-04-23] MEDS ORDERED: LEVOFLOXACIN 750 MG /D5W 150ML 150 ML IV ONE (12:30)
[2019-04-23 12:36] LABS: BILIRUBIN,URINE Negative (NEGATIVE); BLOOD, URINE Negative Ery/uL (NEGATIVE); COLOR,URINE Yellow (YELLOW); KETONES,URINE Trace (NEGATIVE); LEUKOCYTE ESTERASE ,URINE Negative (NEGATIVE); NITRITE, URINE Negative (NEGATIVE); PH,URINE 5.5 (5.0-8.0); PROTEIN,URINE Trace mg/dl (NEGATIVE); UGLUCOSE Negative (NEGATIVE); UROBILINOGEN,URINE 0.2 EU/dL (0.2)
[2019-04-23] MEDS ORDERED: OSELTAMIVIR PHOSPHATE 75 MG CAPSULE ONE (12:36)
[2019-04-23 12:37] LABS: APPEARANCE,URINE HAZY (CLEAR); BACTERIA,URINE 1+ /HPF (None Seen); SQUAMOUS EPITHELIAL CELL,UR Few /HPF (None Seen)
--- NOTE | 2019-04-23 13:21 | NUR ---
BED ASSIGNED: 311-1
--- NOTE | 2019-04-23 13:32 | NUR ---
report given to MAK GLASS
[2019-04-23 14:00] VITALS: BP 129/68
--- NOTE | 2019-04-23 14:00 | NUR ---
ms rn received a new admission from er, awake,confused, came in w/ dx of pneumonia,denies pain at this time, will monitor patient's condition.
--- NOTE | 2019-04-23 14:12 | NUR ---
PATIENT TRANSFERRED TO ROOM 311, IN STABLE CONDITION.
--- NOTE | 2019-04-23 14:25 | NUR ---
ms rn was seen by avni gordon/ orders made and carried out.
[2019-04-23] MEDS ORDERED: NA PHOS,M-B/NA PHOS,DI-BA 1 EA ENEMA RC PRN (15:00)
[2019-04-23] MEDS ORDERED: ACETAMINOPHEN 325 MG TABLET PO PRN ×2 (15:00)
[2019-04-23] MEDS ORDERED: HYDROCODONE/APAP 5/325MG 1 EACH TABLET PO PRN (15:00)
[2019-04-23] MEDS ORDERED: Z GUARD REMEDY 2 OZ OINT TP PRN (15:00)
[2019-04-23] MEDS ORDERED: *INSULIN REGULAR(HUMULIN R)HUM 100 UNIT/ML VIAL SQ PRN (15:00)
[2019-04-23] MEDS ORDERED: MAG HYDROX/AL HYDROX/SIMETH 30 ML UDC PO PRN (15:00)
[2019-04-23] MEDS ORDERED: ONDANSETRON HCL/PF 4 MG/2 ML VIAL IVP PRN (15:00)
[2019-04-23] MEDS ORDERED: DEXTROSE 50%-WATER 50 ML DISP.SYRIN IV PRN (15:00)
[2019-04-23] MEDS ORDERED: INSULIN REGULAR, HUMAN 100 UNIT/ML 3 ML VIAL SQ PRN (15:00)
[2019-04-23] MEDS ORDERED: TEMAZEPAM 15 MG CAPSULE PO PRN (15:00)
[2019-04-23] MEDS ORDERED: MAGNESIUM HYDROXIDE 30 ML UDC PO PRN ×2 (15:00)
[2019-04-23 16:00] VITALS: BP 150/72
[2019-04-23] MEDS: risperiDONE 0.25 MG TABLET PO SCH ×2 (16:57→21:22)
[2019-04-23] MEDS: BLOOD SUGAR DIAGNOSTIC 1 EACH STRIP VI SCH ×2 (16:57→21:31)
[2019-04-23] MEDS: DIVALPROEX SODIUM 125 MG CAP.SPRINK PO SCH (16:57)
[2019-04-23] MEDS: hydrALAZINE HCL 50 MG TABLET PO SCH (16:57)
[2019-04-23] MEDS: BENZTROPINE MESYLATE (1 MG) 1 MG TABLET PO SCH (16:57)
[2019-04-23] MEDS: IV NS 0.9% 1,000 ML IV PRN (16:58)
[2019-04-23] MEDS ORDERED: DIVALPROEX SODIUM 250 MG TABLET.DR PO SCH (17:00)
--- NOTE | 2019-04-23 17:35 | NUR ---
ms rn due meds given, eating dinner,son at bedside.
--- NOTE | 2019-04-23 19:15 | NUR ---
ASSISTANT STORE MANAGER TRAINEE NOTES RECEIVED PT IN BED AWAKE AND ABLE TO MAKE NEEDS KNOWN. PT A/O X1. RESPIRATIONS EVEN AND UNLABORED WITH NO S/S OF ACUTE DISTRESS OR SOB NOTED. NO COMPLAINTS OF PAIN AT THIS TIME. SAFETY MEASURES IN PLACE WITH BED IN LOWEST LOCKED POSITION WITH SIDE RAILS UP X2. CALL LIGHT WITHIN REACH. WILL CONTINUE TO MONITOR.
[2019-04-23 20:00] VITALS: BP 163/74
[2019-04-23] MEDS: ATORVASTATIN 40 MG TABLET PO SCH (21:21)
[2019-04-23] MEDS: GABAPENTIN 100 MG CAPSULE PO SCH (21:22)
[2019-04-23] MEDS: MEMANTINE HCL 5 MG TABLET PO SCH (21:22)
[2019-04-23] MEDS: METOPROLOL TARTRATE 25 MG TABLET PO SCH (21:23)
[2019-04-24] VITALS: BP 162/84
[2019-04-24 00:30] VITALS: BP 153/86
--- NOTE | 2019-04-24 07:10 | NUR ---
MS RN NOTES PATIENT IN BED ALERT ORIENT X 1. NO ACUTE DISTRESS NOTED. BREATHING UNLABORED. IV ACCESS PATENT AND INTACT, NO REDNESS, NO SWELLING NOTED. SAFETY MEASURES IN PLACE. CALL LIGHT WITHIN REACH. WILL CONTINUE TO MONITOR ACCORDINGLY.
[2019-04-24 07:14] LABS: BASOPHILS % (AUTO) 0.5 % (0.0-2.0); EOSINOPHILS % (AUTO) 4.3 % (0.0-6.0); HEMATOCRIT 28 % (33-45); HEMOGLOBIN 9.2 g/dL (11.5-14.8); LYMPHOCYTES # (AUTO) 1.4 /CMM (0.8-4.8); LYMPHOCYTES % (AUTO) 21.1 % (20.0-44.0); MEAN CORPUSCULAR HGB CONC 33 g/dl (31.0-36.0); MEAN CORPUSCULAR VOLUME 93 fL (82-100); MONOCYTES # (AUTO) 1.1 /CMM (0.1-1.30); MONOCYTES % (AUTO) 17.5 % (2.0-12.0); NEUTROPHILS # (AUTO) 3.6 /CMM (1.8-8.9); NEUTROPHILS % (AUTO) 56.6 % (43.0-81.0); PLATELET COUNT (AUTO) 241 /CMM (150-450); RED BLOOD CELL COUNT(AUTO) 2.97 MIL/uL (4.0-5.2); WHITE BLOOD COUNT (AUTO) 6.4 K/uL (4.3-11.0)
[2019-04-24] MEDS: BLOOD SUGAR DIAGNOSTIC 1 EACH STRIP VI SCH ×4 (07:24→22:20)
[2019-04-24 07:33] LABS: CALCIUM, SERUM 8.2 mg/dL (8.5-10.1); CREATININE 0.8 mg/dL (0.6-1.3); MAGNESIUM 1.7 mg/dL (1.8-2.4); PHOSPHORUS 2.8 mg/dL (2.5-4.9); POTASSIUM 3.9 mmol/L (3.5-5.1)
[2019-04-24 08:00] VITALS: BP 151/70
--- NOTE | 2019-04-24 08:03 | NUR ---
CERTIFIED OPHTHALMIC TECHNICIAN NOTES PT IN BED AWAKE AND ABLE TO MAKE NEEDS KNOWN. PT A/O X1. RESPIRATIONS EVEN AND UNLABORED WITH NO S/S OF ACUTE DISTRESS OR SOB NOTED THROUGHOUT SHIFT. NO COMPLAINTS OF PAIN AT THIS TIME. PT KEPT CLEAN, DRY, AND COMFORTABLE. SAFETY MEASURES IN PLACE WITH BED IN LOWEST LOCKED POSITION WITH SIDE RAILS UP X2. CALL LIGHT WITHIN REACH. WILL ENDORSE TO ON COMING NURSE FOR ANNE.
[2019-04-24] MEDS: risperiDONE 0.25 MG TABLET PO SCH ×3 (08:53→21:07)
[2019-04-24] MEDS: DIVALPROEX SODIUM 125 MG CAP.SPRINK PO SCH ×2 (08:53→17:24)
[2019-04-24] MEDS: BENZTROPINE MESYLATE (1 MG) 1 MG TABLET PO SCH ×2 (08:53→17:24)
[2019-04-24] MEDS: ASPIRIN 325 MG TABLET PO SCH (08:53)
[2019-04-24] MEDS: MULTIVIT W/MINERALS 1 TAB TABLET PO SCH (08:53)
[2019-04-24] MEDS: MEMANTINE HCL 5 MG TABLET PO SCH ×2 (08:53→21:07)
[2019-04-24] MEDS: ISOSORBIDE MONONITRATE (30MG) 30 MG TAB.SR.24H PO SCH (08:54)
[2019-04-24] MEDS: hydrALAZINE HCL 50 MG TABLET PO SCH ×2 (08:54→17:24)
[2019-04-24] MEDS: METOPROLOL TARTRATE 25 MG TABLET PO SCH ×2 (08:54→21:08)
[2019-04-24] MEDS ORDERED: risperiDONE 0.25 MG TABLET PO SCH (09:00)
[2019-04-24] MEDS: IV NS 0.9% 1,000 ML IV PRN (09:04)
[2019-04-24] MEDS: Magnesium 1GM/D5W 100ML PREMIX 100 ML IV SCH ×2 (10:42→11:44)
[2019-04-24 16:00] VITALS: BP 123/63
--- NOTE | 2019-04-24 19:00 | NUR ---
MS RN NOTES PATIENT IN BED ALERT ORIENT X 1. NO ACUTE DISTRESS NOTED. BREATHING UNLABORED. IV ACCESS PATENT AND INTACT, NO REDNESS, NO SWELLING NOTED. NEEDS ATTENDED AND ANTICIPATED. KEPT CLEAN, DRY AND COMFORTABLE. SAFETY MEASURES IN PLACE. CALL LIGHT WITHIN REACH. WILL ENDORSE TO NIGHT NURSE FOR CONTINUITY OF CARE.
--- NOTE | 2019-04-24 19:15 | NUR ---
STEAMTABLE WORKER NOTES RECEIVED PT IN BED AWAKE AND ABLE TO MAKE NEEDS KNOWN. PT A/O X1 WITH PERIODS OF CONFUSION. RESPIRATIONS EVEN AND UNLABORED WITH NO S/S OF ACUTE DISTRESS OR SOB NOTED. NO COMPLAINTS OF PAIN AT THIS TIME. PT NOTED WITH LFA #22G PATENT AND INTACT INFUSING NS @75CC/HR. SAFETY MEASURES IN PLACE WITH BED IN LOWEST LOCKED POSITION WITH SIDE RAILS UP X2. CALL LIGHT WITHIN REACH. WILL CONTINUE TO MONITOR.
[2019-04-24 20:37] VITALS: BP 119/80
[2019-04-24] MEDS: ATORVASTATIN 40 MG TABLET PO SCH (21:07)
[2019-04-24] MEDS: GABAPENTIN 100 MG CAPSULE PO SCH (21:07)
[2019-04-24 22:00] VITALS: BP 156/79
[2019-04-25] MEDS: IV NS 0.9% 1,000 ML IV PRN (02:09)
[2019-04-25 06:56] LABS: CALCIUM, SERUM 7.7 mg/dL (8.5-10.1); CREATININE 0.8 mg/dL (0.6-1.3); MAGNESIUM 1.8 mg/dL (1.8-2.4); POTASSIUM 3.9 mmol/L (3.5-5.1)
[2019-04-25] MEDS: BLOOD SUGAR DIAGNOSTIC 1 EACH STRIP VI SCH ×4 (07:40→22:39)
--- NOTE | 2019-04-25 07:44 | NUR ---
RETORT PRE COOKER NOTES PT IN BED AWAKE AND ABLE TO MAKE NEEDS KNOWN. PT A/O X1. RESPIRATIONS EVEN AND UNLABORED WITH NO S/S OF ACUTE DISTRESS OR SOB NOTED THROUGHOUT SHIFT. NO COMPLAINTS OF PAIN AT THIS TIME. PT KEPT CLEAN, DRY, AND COMFORTABLE. SAFETY MEASURES IN PLACE WITH BED IN LOWEST LOCKED POSITION WITH SIDE RAILS UP X2. CALL LIGHT WITHIN REACH. WILL ENDORSE TO ON COMING NURSE FOR ANNE.
--- NOTE | 2019-04-25 07:47 | NUR ---
MS/RN OPENING NOTE Patient received resting in bed, A/O x1, showing no signs of acute distress or SOB, breathing is even and unlabored saturating well on RA. IV line is clean and intact running NS@ 75ml/hr. Bed is in lowest position, side rails x3 in upright position. Safety, fall, seizure and aspiration precautions enforced, will continue with plan of care.
[2019-04-25 08:00] VITALS: BP 149/64
[2019-04-25] MEDS: MULTIVIT W/MINERALS 1 TAB TABLET PO SCH (08:59)
[2019-04-25] MEDS: DIVALPROEX SODIUM 125 MG CAP.SPRINK PO SCH ×2 (08:59→16:46)
[2019-04-25] MEDS: ISOSORBIDE MONONITRATE (30MG) 30 MG TAB.SR.24H PO SCH (08:59)
[2019-04-25] MEDS: ASPIRIN 325 MG TABLET PO SCH (09:00)
[2019-04-25] MEDS: risperiDONE 0.25 MG TABLET PO SCH ×3 (09:00→21:55)
[2019-04-25] MEDS: MEMANTINE HCL 5 MG TABLET PO SCH ×2 (09:00→21:54)
[2019-04-25] MEDS: BENZTROPINE MESYLATE (1 MG) 1 MG TABLET PO SCH ×2 (09:00→16:46)
[2019-04-25] MEDS: METOPROLOL TARTRATE 25 MG TABLET PO SCH ×2 (09:00→21:55)
[2019-04-25] MEDS ORDERED: CLONIDINE HCL 0.1MG/24H PTWK 1 EA PATCH TD SCH (09:00)
[2019-04-25] MEDS: hydrALAZINE HCL 50 MG TABLET PO SCH ×2 (09:01→16:46)
[2019-04-25] MEDS ORDERED: LEVOFLOXACIN 750 MG /D5W 150ML 750 MG in PREMIX 1 EA IV SCH (12:00)
[2019-04-25 16:00] VITALS: BP 135/56
--- NOTE | 2019-04-25 18:52 | NUR ---
MS/RN CLOSING NOTE Patient is resting in bed, A/O x1, showing no signs of acute distress or SOB, breathing is even and unlabored saturating well on RA. IV line is clean and intact running NS@ 75ml/hr. All patient needs met, all due meds given. Bed is in lowest position, side rails x3 in upright position. Safety, fall, seizure and aspiration precautions enforced, will continue with plan of care.
--- NOTE | 2019-04-25 19:05 | NUR ---
COOK CHIEF NOTES RECEIVED PT IN BED AND AWAKE. PT A/O X1 WITH PERIODS OF CONFUSION. RESPIRATIONS EVEN AND UNLABORED WITH NO S/S OF ACUTE DISTRESS OR SOB NOTED. NO COMPLAINTS OF PAIN AT THIS TIME. PT NOTED WITH LFA #22G PATENT AND INTACT INFUSING NS @75CC/HR. SAFETY MEASURES IN PLACE WITH BED IN LOWEST LOCKED POSITION WITH SIDE RAILS UP X2. CALL LIGHT WITHIN REACH. WILL CONTINUE TO MONITOR.
[2019-04-25 20:00] VITALS: BP 151/78
[2019-04-25] MEDS: GABAPENTIN 100 MG CAPSULE PO SCH (21:54)
[2019-04-25] MEDS: ATORVASTATIN 40 MG TABLET PO SCH (21:54)
--- NOTE | 2019-04-25 21:55 | NUR ---
MS RN NOTES RISPIRADONE HELD PER FAMILY. WILL CONTINUE TO MONITOR.
[2019-04-26] MEDS: BLOOD SUGAR DIAGNOSTIC 1 EACH STRIP VI SCH ×2 (06:30→12:32)
--- NOTE | 2019-04-26 07:40 | NUR ---
MS/RN OPENING NOTE Patient is medically stable for discharge. A/O x1, confused, Patient is in no acute distress, breathing is even and unlabored, no SOB noted, saturating >95% on RA. IV line is intact running NS @ 75ml/hr. Bed is in lowest position, side rails x3 in upright position, safety, fall, aspiration and seizure precautions enforced. Will continue with plan of care.
[2019-04-26 08:00] VITALS: BP 194/85
[2019-04-26] MEDS: hydrALAZINE HCL 50 MG TABLET PO SCH (09:20)
[2019-04-26] MEDS: risperiDONE 0.25 MG TABLET PO SCH (09:20)
[2019-04-26] MEDS: MULTIVIT W/MINERALS 1 TAB TABLET PO SCH (09:20)
[2019-04-26] MEDS: ASPIRIN 325 MG TABLET PO SCH (09:20)
[2019-04-26] MEDS: MEMANTINE HCL 5 MG TABLET PO SCH (09:20)
[2019-04-26 09:21] VITALS: BP 159/70
[2019-04-26] MEDS: BENZTROPINE MESYLATE (1 MG) 1 MG TABLET PO SCH (09:21)
[2019-04-26] MEDS: DIVALPROEX SODIUM 125 MG CAP.SPRINK PO SCH (09:21)
[2019-04-26] MEDS: METOPROLOL TARTRATE 25 MG TABLET PO SCH (09:21)
[2019-04-26] MEDS: ISOSORBIDE MONONITRATE (30MG) 30 MG TAB.SR.24H PO SCH (09:21)
[2019-04-26] MEDS ORDERED: LEVO500T75 PO (09:47)
--- NOTE | 2019-04-26 15:30 | NUR ---
MS/SYSTEMS AUDITOR NOTE Patient is medically stable for discharge. A/O x1, confused, Patient is in no acute distress, breathing is even and unlabored, no SOB noted, saturating >95% on RA. Vital signs WNL. IV line removed, ID band removed. Patient is confused so witness RN signed discharge papers. Patient did not come with any belongings. Patient kept clean and dry throughout shift, all patient needs met, all due meds given. Report given to Gregoria GLASS at [facility]. MD is aware of discharge. Patient picked up by EMS. Patient left on gurney with EMS en route to [facility].
== END 2019-04-26 15:30 | DRG 871 ==
LOC: ER 11:11 → MED 13:25 → TELE 17:00 → MED 04-24 08:59
PROVIDERS: ADMIT Internal Medicine; ATTEND Internal Medicine
DX: A41.9 Sepsis, unspecified organism (principal); J18.9 Pneumonia, unspecified organism; I21.4 Non-ST elevation (NSTEMI) myocardial infarction; G93.41 Metabolic encephalopathy; N17.0 Acute kidney failure with tubular necrosis; E43 Unspecified severe protein-calorie malnutrition; J44.0 Chronic obstructive pulmonary disease with (acute) lower respiratory infection; D63.8 Anemia in other chronic diseases classified elsewhere; I25.10 Atherosclerotic heart disease of native coronary artery without angina pectoris; Z86.73 Personal history of transient ischemic attack (TIA), and cerebral infarction without residual deficits; E11.42 Type 2 diabetes mellitus with diabetic polyneuropathy; Z68.26 Body mass index [BMI] 26.0-26.9, adult; F20.9 Schizophrenia, unspecified; F29 Unspecified psychosis not due to a substance or known physiological condition; E78.5 Hyperlipidemia, unspecified; F01.50 Vascular dementia, unspecified severity, without behavioral disturbance, psychotic disturbance, mood disturbance, and anxiety; I10 Essential (primary) hypertension; K21.9 Gastro-esophageal reflux disease without esophagitis; Z87.891 Personal history of nicotine dependence; Z88.0 Allergy status to penicillin
CPT/HCPCS: 36415; 70450-TC; 71045-TC; 80048-TC; 80076-TC; 81000-TC; 82962-TC; 83605-TC; 83735-TC; 84100-TC; 84484-TC; 85025-TC; 85730-TC; 87040-TC; 87081-TC; 87086-TC; 93307-TC; A4216; G0378; J1815; J1956; J3475; J7030; J7040

== ENCOUNTER 2020-06-29 02:31 | Inpatient (IN) | payer MEDICARE, OTHER ==
[~2020-06-29] VITALS: Ht 165.1 cm; Wt 52.2 kg
[~2020-06-29 02:31] MED LIST changes: +BENZ0.5T43 PO; -BISA10SU11 RC; -CEPH-569 PO; +DIVA125C2 PO; -ENOX40DI SQ; -ISOS30TA6 PO; +ISOS30TA86 PO; +LEVO500T23 PO; -PANT40TA2 PO; -QUET25TA PO; -QUET50TA PO; +RISP0.2515 PO
--- NOTE | 2020-06-29 02:35 | NUR ---
PT AAOX1. BIBPA FROM [facility]. C/O SAT 90% AND HIGH TEMP OF 102 WHICH THE PT WAS GIVEN TYLENOL. UPON ASSESSMENT PT WARM, RR EVEN AND UNLABORED. TEMP OF 100.3 RECTAL. PT PLACED ON 2L NC, SAT 100%. PT CONTRACTED, NO SKIN ISSUES NOTED. LINE ESTABLISHED LH 20G AND R FOREARM 18G, BLOOD WORK COLLECTED, SENT TO LAB.
--- NOTE | 2020-06-29 02:52 | NUR ---
JOSHID SWABBED, SENT TO LAB.
[2020-06-29] MEDS ORDERED: CEFTRIAXONE 1GM BAG (ER ONLY) 50 ML IV ONE ×2 (03:00→03:04)
[2020-06-29 03:13] LABS: BASOPHILS # (AUTO) 0.1 /CMM (0.0-0.2); BASOPHILS % (AUTO) 0.6 % (0.0-2.0); EOSINOPHILS % (AUTO) 3.3 % (0.0-6.0); HEMATOCRIT 28 % (33-45); HEMOGLOBIN 9.5 g/dL (11.5-14.8); LYMPHOCYTES % (AUTO) 34.2 % (20.0-44.0); MEAN CORPUSCULAR HGB CONC 33 g/dl (31.0-36.0); MEAN CORPUSCULAR VOLUME 92 fL (82-100); MONOCYTES % (AUTO) 11.5 % (2.0-12.0); NEUTROPHILS # (AUTO) 4.4 /CMM (1.8-8.9); NEUTROPHILS % (AUTO) 50.4 % (43.0-81.0); PLATELET COUNT (AUTO) 188 /CMM (150-450); RED BLOOD CELL COUNT(AUTO) 3.08 MIL/uL (4.0-5.2); WHITE BLOOD COUNT (AUTO) 8.7 K/uL (4.3-11.0)
--- NOTE | 2020-06-29 03:19 | NUR ---
URINE COLLECTED AND SENT TO LAB
[2020-06-29 03:21] LABS: CALCIUM, SERUM 8.4 mg/dL (8.5-10.1); POTASSIUM 4.4 mmol/L (3.5-5.1)
[2020-06-29 03:24] LABS: BILIRUBIN,URINE NEGATIVE (NEGATIVE); COLOR,URINE YELLOW (YELLOW); LEUKOCYTE ESTERASE ,URINE NEGATIVE (NEGATIVE); NITRITE, URINE NEGATIVE (NEGATIVE); PH,URINE 6.5 (5.0-8.0); PROTEIN,URINE NEGATIVE (NEGATIVE); UGLUCOSE NEGATIVE (NEGATIVE); UROBILINOGEN,URINE 0.2 EU/dL (0.2)
--- NOTE | 2020-06-29 03:24 | NUR ---
RADIOLOGY AT BEDSIDE FOR CXRAY
[2020-06-29] MEDS ORDERED: IV NS 0.9% 1,000 ML BAG IV ONE (03:30)
[2020-06-29 03:33] LABS: ALBUMIN 2.2 g/dL (3.4-5.0); BILIRUBIN,DIRECT 0.1 mg/dL (0.0-0.2); BILIRUBIN,TOTAL 0.4 mg/dL (0.2-1.0); TOTAL PROTEIN, SERUM 6.5 g/dL (6.4-8.2)
[2020-06-29] MEDS ORDERED: methylPREDNISolone SOD SUCC 125 MG/2ML VIAL IV ONE (04:00)
[2020-06-29] MEDS ORDERED: LEVOFLOXACIN 750 MG /D5W 150ML PIGGYBACK IV ONE (04:00)
[2020-06-29] MEDS ORDERED: methylPREDNISolone SOD SUCC 125 MG/2ML VIAL ONE (04:12)
[2020-06-29] MEDS ORDERED: LEVOFLOXACIN 750 MG /D5W 150ML 150 ML IV ONE (04:13)
--- NOTE | 2020-06-29 04:26 | NUR ---
PT AWAKE, IN BED, VSS.
--- NOTE | 2020-06-29 04:37 | NUR ---
CALL TO GIVE REPORT, AWAITING RN TO CALL BACK.
--- NOTE | 2020-06-29 04:44 | NUR ---
REPORT GIVEN TO NBA GLASS FOR ANNE
--- NOTE | 2020-06-29 05:00 | NUR ---
RN OPENING NOTE ADMIT 79 YEAR OLD FEMALE TO [facility]UTCH UNIT AT ROOM 107 FROM EMERGENCY DEPARTMENT ALERT DISORIENTED,CONFUSED ON 2L OXYGEN VIA NASAL CANNULA O2:98% WITH DIAGNOSIS:SEPSIS IV SITE IS ON LEFT HAND #20 AND RIGHT FOREARM #18 INTACT PATENT BED IN LOW POSITION AND LOCKED CALL LIGHT WITHIN REACH,SAFETY MEASURE IMPLEMENT CONTINUE TO MONITOR
--- NOTE | 2020-06-29 05:10 | NUR ---
pt was transferred to the first floor under acls
[2020-06-29] MEDS ORDERED: IV LR 1000 ML 1,000 ML IV PRN (05:30)
[2020-06-29] MEDS ORDERED: Z GUARD REMEDY 2 OZ OINT TP PRN (05:30)
[2020-06-29] MEDS ORDERED: ONDANSETRON HCL/PF 4 MG/2 ML VIAL IVP PRN (05:30)
[2020-06-29] MEDS ORDERED: TEMAZEPAM 15 MG CAPSULE PO PRN (05:30)
[2020-06-29 06:33] VITALS: BP 100/65
--- NOTE | 2020-06-29 07:09 | NUR ---
RN CLOSING NOTE PATIENT REMAINS ON ALERT DISORIENTED ON 2L OXYGEN VIA NASAL CANNULA O2:98% NO SOB NOT ACUTE DISTRESS NOTED,SAFETY MEASURE IMPLEMENTED KEPT CLEAN AND DRY ENDORSE NEXT COMING SHIFT FOR CONTINUATION OF CARE
--- NOTE | 2020-06-29 07:50 | NUR ---
RN OPENING NOTE PATIENT IS CURRENTLY IN BED WITH HOB AT SEMI FOWLERS POSITION. PATIENT IS AOX1. CURRENTLY ON 2L NC WITH NO SIGNS OF LABORED BREATHING. RIGHT FOREARM #18 AND LHAND #20 ARE PATENT, INTACT, AND HAVE NO SIGNS OF INFILTRATION. BED IS LOCKED IN THE LOWEST POSITION, 3 GUARD RAILS RAISED, CALL MO WITHIN REACH, AND ALL HOSPITAL SAFETY PRECAUTIONS ARE BEING FOLLOWED. WILL CONTINUE TO MONITOR THROUGHOUT SHIFT.
[2020-06-29 08:00] VITALS: BP 123/59
[2020-06-29] MEDS: METOPROLOL TARTRATE 25 MG TABLET PO SCH ×3 (08:29→21:54)
[2020-06-29] MEDS: MEMANTINE HCL 5 MG TABLET PO SCH ×3 (08:30→17:31)
[2020-06-29] MEDS: risperiDONE 0.25 MG TABLET PO SCH ×4 (08:30→21:55)
[2020-06-29] MEDS: DIVALPROEX SODIUM 125 MG CAP.SPRINK PO SCH ×3 (08:30→17:31)
[2020-06-29] MEDS: BENZTROPINE MESYLATE (1 MG) 1 MG TABLET PO SCH ×3 (08:30→17:32)
[2020-06-29] MEDS: MULTIVITAMINS,THERAGRAN 1 UDTAB TABLET PO SCH (08:30)
[2020-06-29] MEDS: VANCOMYCIN 1 GM in IV D5W 250 ML IV SCH (08:41)
--- NOTE | 2020-06-29 09:00 | NUR ---
RN NOTE PATIENT REFUSED ALL AM PO MEDS. EDUCATION WAS GIVEN ON IMPORTANCE OF MEDICATIONS AND POTENTIAL SIDE EFFECTS. PATIENT STILL REFUSED.
--- NOTE | 2020-06-29 09:00 | NUR ---
RN NOTE ISOSORBIDE AND HYDRALAZINE HELD DUE TO BP OF 123/59. ATTEMPTED TO ADMIN METROPOLOL BUT PATIENT REFUSED. WILL ATTEMPT AGAIN TO ADMINISTER HYDRALAZINE AND ISOSORBIDE LATER IN SHIFT.
[2020-06-29] MEDS: IV D5/ 0.9% NACL 1,000 ML IV PRN (09:53)
[2020-06-29] MEDS: ENOXAPARIN SODIUM 40 MG/0.4 ML DISP.SYRIN SQ SCH (09:56)
[2020-06-29] MEDS: IPRATROPIUM NEB FS 0.5 MG/2.5 ML AMPUL.NEB NEB SCH ×3 (10:14→19:17)
[2020-06-29] MEDS: ALBUTEROL HALF STRENGTH 1.25 MG/3 ML VIAL.NEB NEB SCH ×3 (10:14→19:17)
[2020-06-29 12:00] VITALS: BP 132/60
--- NOTE | 2020-06-29 12:00 | NUR ---
RN NOTE SONMARTHA, CALLED FOR UPDATE. PHONE NUMBER IS .
[2020-06-29] MEDS: ISOSORBIDE MONONITRATE (30MG) 30 MG TAB.SR.24H PO SCH (13:12)
[2020-06-29] MEDS: hydrALAZINE HCL 50 MG TABLET PO SCH ×2 (13:13→17:32)
[2020-06-29 16:00] VITALS: BP 128/51
--- NOTE | 2020-06-29 18:50 | NUR ---
RN CLOSING NOTE PATIENT IS CURRENTLY IN BED WITH HOB AT SEMI FOWLERS POSITION. PATIENT IS AOX1. CURRENTLY ON 2L NC WITH NO SIGNS OF LABORED BREATHING. RIGHT FOREARM #18 AND LHAND #20 ARE PATENT, INTACT, AND HAVE NO SIGNS OF INFILTRATION. BED IS LOCKED IN THE LOWEST POSITION, 3 GUARD RAILS RAISED, CALL MO WITHIN REACH, AND ALL HOSPITAL SAFETY PRECAUTIONS ARE BEING FOLLOWED. ALL DUE MEDS WERE GIVEN DURING SHIFT AND PATIENT REMAINED STABLE. WILL ENDORSE TO PROCESS TECHNICIAN RN.
--- NOTE | 2020-06-29 19:35 | NUR ---
rn opening notes received pt in bed, a/o x1. pt on 2L of o2 via nasal cannula, no sob or resp distress noted. on med surg monitoring. no s/s of pain noted. pt has left hand and right forearm iv site, both flushed. ivf D5NS running at 70cc/hr, no s/s of infiltration noted. pt contracted. will turn and reposition throughout shift, safety measures in place. hob elevated 40 degrees as ordered, side rails up x3, bed locked in lowest position. bed alarm on. call light within reach will cont to monitor closely.
[2020-06-29 20:00] VITALS: BP 133/94
--- NOTE | 2020-06-29 21:30 | NUR ---
pt irene atkinson called, gave an update.
[2020-06-29] MEDS: GABAPENTIN 100 MG CAPSULE PO SCH (21:54)
[2020-06-29] MEDS: ATORVASTATIN 40 MG TABLET PO SCH (21:54)
[2020-06-30] MEDS: IV D5/ 0.9% NACL 1,000 ML IV PRN ×2 (00:57→18:28)
[2020-06-30] MEDS: VANCOMYCIN 1 GM in IV D5W 250 ML IV SCH ×2 (01:02→21:47)
[2020-06-30] MEDS: ALBUTEROL HALF STRENGTH 1.25 MG/3 ML VIAL.NEB NEB SCH ×4 (01:14→20:00)
[2020-06-30] MEDS: IPRATROPIUM NEB FS 0.5 MG/2.5 ML AMPUL.NEB NEB SCH ×4 (01:14→20:00)
[2020-06-30 04:00] VITALS: BP 100/49
[2020-06-30 06:29] LABS: BASOPHILS % (AUTO) 0.3 % (0.0-2.0); HEMATOCRIT 23 % (33-45); HEMOGLOBIN 7.7 g/dL (11.5-14.8); LYMPHOCYTES # (AUTO) 1.1 /CMM (0.8-4.8); LYMPHOCYTES % (AUTO) 18.7 % (20.0-44.0); MEAN CORPUSCULAR HGB CONC 33 g/dl (31.0-36.0); MEAN CORPUSCULAR VOLUME 92 fL (82-100); MONOCYTES # (AUTO) 0.6 /CMM (0.1-1.30); MONOCYTES % (AUTO) 11.2 % (2.0-12.0); NEUTROPHILS % (AUTO) 69.8 % (43.0-81.0); PLATELET COUNT (AUTO) 177 /CMM (150-450); RED BLOOD CELL COUNT(AUTO) 2.52 MIL/uL (4.0-5.2); WHITE BLOOD COUNT (AUTO) 5.8 K/uL (4.3-11.0)
--- NOTE | 2020-06-30 06:31 | NUR ---
Rn closing notes No significant changes in pt condition. Pt had periods of confusion occasionally, baseline to pt. Pt remains on 2L of o2, tolerating well. No resp distress no sob noted. Bed bath done. Wound consult ordered for wounds on lenore feet. All needs attended. Pt afebrile, no s/s of pain. Safety measures in place. Hob elevated 40 degrees at all times. Side rails up x3, bed locked in lowest position, call light within reach. Will endorse to oncoming nurse for continuation of care.
[2020-06-30 06:39] LABS: ALANINE AMINOTRANSFERASE 13 U/L (12-78); ALBUMIN 1.9 g/dL (3.4-5.0); ALKALINE PHOSPHATASE 53 U/L (46-116); ASPARTATE AMINOTRANSFERASE 16 U/L (15-37); BILIRUBIN,TOTAL 0.2 mg/dL (0.2-1.0); CALCIUM, SERUM 7.9 mg/dL (8.5-10.1); CARBON DIOXIDE 23 mmol/L (21-32); CHLORIDE 104 mmol/L (98-107); CREATININE 0.8 mg/dL (0.6-1.3); GLUCOSE 139 mg/dL (74-106); PHOSPHORUS 3.4 mg/dL (2.5-4.9); SODIUM SERUM 137 mmol/L (136-145); TOTAL PROTEIN, SERUM 5.9 g/dL (6.4-8.2); UREA NITROGEN, BLOOD 20 mg/dL (7-18)
[2020-06-30 06:46] LABS: CHOLESTEROL 98 mg/dL (<200); HDL CHOLESTEROL 33 mg/dL (40-60); LDL 45 mg/dL (0-99); THYROID STIMULATING HORMONE 1.123 uIU/mL (0.358-3.74); TRIGLYCERIDES 73 mg/dL (30-150)
[2020-06-30 06:48] LABS: IRON, SERUM 14 ug/dl (50-175); TOTAL IRON BINDING CAPACITY 181 ug/dl (250-450)
--- NOTE | 2020-06-30 07:10 | NUR ---
critical lab value Lactic acid 2.1 via Benoit from Lab, endorsed to Dagoberto GLASS for cont of care
--- NOTE | 2020-06-30 07:15 | NUR ---
RN OPENING NOTE PT RECEIVED IN BED RESTING IN SEMI-FOWLERS POSITION. PT ON O2 THERAPY VIA NC AT 2 LPM TOLERATING WELL WITH NO COMPLAINTS OF SOB OR RESPIRATORY DISTRESS. RIGHT FA IV INTACT AND RUNNING D5 1/2 NS AT 70 ML/HR. LEFT HAND #20 G INTACT AND PATENT. SAFETY PRECAUTIONS IMPLEMENTED, BED LOCKED IN LOWEST POSITION, SIDE RAILS UP X2, CALL LIGHT WITHIN REACH. WILL CONTINUE TO MONITOR AND PROVIDE CARE THROUGHOUT SHIFT.
[2020-06-30] MEDS: CEFTRIAXONE 1 G in IV D5W 50 ML IV SCH (09:13)
[2020-06-30] MEDS: MEMANTINE HCL 5 MG TABLET PO SCH ×2 (09:14→17:09)
[2020-06-30] MEDS: BENZTROPINE MESYLATE (1 MG) 1 MG TABLET PO SCH ×2 (09:14→17:09)
[2020-06-30] MEDS: METOPROLOL TARTRATE 25 MG TABLET PO SCH ×2 (09:15→21:00)
[2020-06-30] MEDS: DIVALPROEX SODIUM 125 MG CAP.SPRINK PO SCH ×2 (09:15→17:09)
[2020-06-30] MEDS: risperiDONE 0.25 MG TABLET PO SCH ×3 (09:16→22:57)
[2020-06-30] MEDS: MULTIVITAMINS,THERAGRAN 1 UDTAB TABLET PO SCH (09:16)
[2020-06-30] MEDS: ISOSORBIDE MONONITRATE (30MG) 30 MG TAB.SR.24H PO SCH (09:17)
[2020-06-30] MEDS: hydrALAZINE HCL 50 MG TABLET PO SCH ×2 (09:18→17:11)
[2020-06-30] MEDS: ENOXAPARIN SODIUM 40 MG/0.4 ML DISP.SYRIN SQ SCH (09:18)
[2020-06-30 12:00] VITALS: BP 129/76
[2020-06-30] MEDS: ASPIRIN 81 MG TAB.CHEW PO SCH (18:27)
--- NOTE | 2020-06-30 19:00 | NUR ---
RN NOTE RECEIVED PATIENT IN BED, AO X 1, IN NO S/SX OF ACUTE DISTRESS AT THIS TIME. PATIENT'S BREATHING IS EVEN AND UNLABORED. PATIENT IS ON 2 L OF OXYGEN VIA NC, TOLERATING WELL, SATURATION AT 100%, HR IS 72. NOTED IV SITE AT RFA 18G, AND L HAND 20G, ALL HUBS PATENT AND FLUSHING WELL, NO S/S OF INFECTION OR INFILTRATION, WITH D5NS INFUSING AT 70 ML/HR. SAFETY MEASURES IMPLEMENTED. PATIENT BED ALARM IS ON. HEAD OF BED ELEVATED TO 40 DEG AT ALL TIMES. BED IS LOCKED, IN LOWEST POSITION AND SIDE RAILS UP. CALL LIGHT WITHIN REACH OF THE PATIENT. WILL CONTINUE TO MONITOR AND REASSESS FOR ANY CHANGES.
--- NOTE | 2020-06-30 19:09 | NUR ---
RN CLOSING NOTE PT IN BED RESTING IN SEMI-FOWLERS POSITION. PT ON O2 THERAPY VIA NC AT 2 LPM TOLERATING WELL WITH NO COMPLAINTS OF SOB OR RESPIRATORY DISTRESS. RIGHT FA IV INTACT AND RUNNING D5 1/2 NS AT 70 ML/HR. LEFT HAND #20 G INTACT AND PATENT. SAFETY PRECAUTIONS IMPLEMENTED, BED LOCKED IN LOWEST POSITION, SIDE RAILS UP X2, CALL LIGHT WITHIN REACH. WILL ENDORSE CONTINUATION OF CARE TO UPCOMING SHIFT.
[2020-06-30 20:00] VITALS: BP 100/60
[2020-06-30] MEDS: ATORVASTATIN 40 MG TABLET PO SCH (22:57)
[2020-06-30] MEDS: GABAPENTIN 100 MG CAPSULE PO SCH (22:58)
[2020-07-01] MEDS: ALBUTEROL HALF STRENGTH 1.25 MG/3 ML VIAL.NEB NEB SCH ×4 (01:13→19:21)
[2020-07-01] MEDS: IPRATROPIUM NEB FS 0.5 MG/2.5 ML AMPUL.NEB NEB SCH ×4 (01:13→19:21)
[2020-07-01 04:00] VITALS: BP 144/73
[2020-07-01 06:40] LABS: BASOPHILS # (AUTO) 0.1 /CMM (0.0-0.2); EOSINOPHILS % (AUTO) 5.1 % (0.0-6.0); HEMATOCRIT 30 % (33-45); HEMOGLOBIN 9.8 g/dL (11.5-14.8); LYMPHOCYTES % (AUTO) 28.4 % (20.0-44.0); MEAN CORPUSCULAR HGB CONC 32 g/dl (31.0-36.0); MEAN CORPUSCULAR VOLUME 94 fL (82-100); MONOCYTES # (AUTO) 0.8 /CMM (0.1-1.30); NEUTROPHILS # (AUTO) 3.8 /CMM (1.8-8.9); NEUTROPHILS % (AUTO) 54.5 % (43.0-81.0); PLATELET COUNT (AUTO) 272 /CMM (150-450); RED BLOOD CELL COUNT(AUTO) 3.23 MIL/uL (4.0-5.2); WHITE BLOOD COUNT (AUTO) 6.9 K/uL (4.3-11.0)
[2020-07-01 07:01] LABS: CALCIUM, SERUM 8.6 mg/dL (8.5-10.1); CREATININE 0.6 mg/dL (0.6-1.3); MAGNESIUM 2.1 mg/dL (1.8-2.4); PHOSPHORUS 3.3 mg/dL (2.5-4.9); POTASSIUM 4.9 mmol/L (3.5-5.1)
--- NOTE | 2020-07-01 07:32 | NUR ---
RN OPENING NOTE RECEIVED PATIENT IN BED RESTING. AWAKE, TALKING TO SELF. PATIENT IS CONFUSED. ON O2 AT 2 LPM - TOLERATING WELL. NO SOB OR RESPIRATORY DISTRESS NOTED. RIGHT FA IV INTACT - RUNNING D5 1/2 NS @ 70 ML/HR. SAFETY PRECAUTIONS IMPLEMENTED, BED LOCKED IN LOWEST POSITION, SIDE RAILS X2, CALL LIGHT WITHIN REACH. WILL CONTINUE TO MONITOR.
[2020-07-01 08:00] VITALS: BP_SYST 117; BP_SYST 165; BP_DIAS 61; BP_DIAS 71
[2020-07-01] MEDS: DIVALPROEX SODIUM 125 MG CAP.SPRINK PO SCH ×2 (08:20→16:01)
[2020-07-01] MEDS: CEFTRIAXONE 1 G in IV D5W 50 ML IV SCH (08:20)
[2020-07-01] MEDS: ASPIRIN 81 MG TAB.CHEW PO SCH (08:20)
[2020-07-01] MEDS: MULTIVITAMINS,THERAGRAN 1 UDTAB TABLET PO SCH (08:20)
[2020-07-01] MEDS: BENZTROPINE MESYLATE (1 MG) 1 MG TABLET PO SCH ×2 (08:21→16:01)
[2020-07-01] MEDS: ISOSORBIDE MONONITRATE (30MG) 30 MG TAB.SR.24H PO SCH (08:21)
[2020-07-01] MEDS: MEMANTINE HCL 5 MG TABLET PO SCH ×2 (08:21→16:01)
[2020-07-01] MEDS: risperiDONE 0.25 MG TABLET PO SCH ×3 (08:21→21:53)
[2020-07-01] MEDS: hydrALAZINE HCL 50 MG TABLET PO SCH ×2 (08:22→16:01)
[2020-07-01] MEDS: METOPROLOL TARTRATE 25 MG TABLET PO SCH ×2 (08:22→21:56)
[2020-07-01] MEDS: ENOXAPARIN SODIUM 40 MG/0.4 ML DISP.SYRIN SQ SCH (08:25)
--- NOTE | 2020-07-01 10:11 | NUR ---
WOUND CARE CONSULT: PT PRESENTS WITH SACRAL SCARRING, CONTRACTED LOWER EXTREMITIES AND WOUNDS TO FEET, PRESENT ON ADMISSION. PT REFUSED TO HAVE HER FEET TOUCHED OR EXAMINED, SCREAMS AT TIMES. RECOMMEND DPM CONSULT. DR VALLADARES NOTIFIED OF CONSULT REQUEST. RECOMMENDATIONS MADE FOR SKIN PROTECTION. DISCUSSED WITH NURSING STAFF. IN AGREEMENT WITH PLAN OF CARE. PT IS INCONTINENT. Addendum: 07/01/20 at 1012 by MESSI SOUTH WNDNU Amended: Links added.
[2020-07-01 12:00] VITALS: BP 153/73
[2020-07-01] MEDS: IV D5/ 0.9% NACL 1,000 ML IV PRN (12:47)
[2020-07-01] MEDS: VANCOMYCIN 1 GM in IV D5W 250 ML IV SCH (13:28)
--- NOTE | 2020-07-01 15:45 | NUR ---
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
--- NOTE | 2020-07-01 16:15 | NUR ---
RN NOTE RECEIVED REPORT FROM QUAN LEY FOR ANNE. WILL CONTINUE TO MONITOR FOR REMAINDER OF SHIFT.
--- NOTE | 2020-07-01 18:38 | NUR ---
RN CLOSING NOTE PATIENT IS CURRENTLY IN BED WITH HOB AT [facility]. PATIENT IS AOX1. CURRENTLY ON 2L NC WITH NO SIGNS OF LABORED BREATHING. PATIENT IS CONTRACT WITH FOOT WOUNDS. RFA#18 IS PATENT, INTACT, AND HAS NO SIGNS OF INFILTRATION. BED IS LOCKED IN THE LOWEST POSITION, 3 GUARD RAILS RAISED, AND ALL HOSPITAL SAFETY PRECAUTIONS ARE BEING FOLLOWED. PATIENT REMAINED STABLE FOR REMAINED OF SHIFT. WILL ENDORSE TO STOCK TRADER RN.
--- NOTE | 2020-07-01 19:30 | NUR ---
RN OPENING NOTES: RECEIVED PT A/OX1 IN BED SLEEPING COMFORTABLY. PATIENT IN NO S/SX OF ACUTE DISTRESS AT THIS TIME. NO SOB NOTED. PATIENT'S BREATHING IS EVEN AND UNLABORED. PATIENT IS ON 2L OF OXYGEN VIA NC; TOLERATING WELL. PATIENT ON PUREED DIET; TOLERATES WELL. NOTED IV SITE ON R FA #18; PATENT, INTACT AND FLUSHING WELL; NO S/S OF INFECTION OR INFILTRATION. WITH IV FLUID RUNNING ORDERED. SAFETY MEASURES HAVE BEEN PROVIDED AND IMPLEMENTED. PATIENT BED ALARM IS ON. HEAD OF BED ELEVATED. BED IS LOCKED, IN LOWEST POSITION AND SIDE RAILS UP. CALL LIGHT WITHIN REACH OF THE PATIENT. APPLICABLE ISOLATION PRECAUTIONS IN PLACE. WILL CONTINUE TO MONITOR AND REASSESS FOR ANY CHANGES AND WILL CARRY OUT ANY ONGOING AND ACTIVE MD ORDER.
[2020-07-01 20:00] VITALS: BP 143/44
--- NOTE | 2020-07-01 20:10 | NUR ---
RN NOTES NOTED PT'S TEMP 101.3@0400. PRN MEDS GIVEN AND COOLING MEASURES PROVIDED. NITRATOR OPERATOR MADE AWARE. WILL RE-EVALUATE AFTER 30 MINUTES- 1 HOUR. WILL CONTINUE TO MONITOR AND ASSESS THROUGHOUT THE SHIFT.
[2020-07-01] MEDS: ACETAMINOPHEN 325 MG TABLET PO PRN (20:19)
[2020-07-01] MEDS: ATORVASTATIN 40 MG TABLET PO SCH (21:53)
[2020-07-01] MEDS: GABAPENTIN 100 MG CAPSULE PO SCH (21:54)
--- NOTE | 2020-07-01 23:00 | NUR ---
RN NOTES PATIENT REMAINS IN NO ACUTE RESPIRATORY DISTRESS AT THIS TIME, NO CHANGES TO CONDITION/STATUS. SENIOR PRINCIPAL ARCHITECT WELL AWARE. WILL CONTINUE TO MONITOR AND REASSESS FOR ANY CHANGES THROUGHOUT THE SHIFT
[2020-07-02] MEDS: ALBUTEROL HALF STRENGTH 1.25 MG/3 ML VIAL.NEB NEB SCH ×4 (00:36→20:14)
[2020-07-02] MEDS: IPRATROPIUM NEB FS 0.5 MG/2.5 ML AMPUL.NEB NEB SCH ×4 (00:36→20:14)
--- NOTE | 2020-07-02 03:00 | NUR ---
RN NOTES NO CHANGE IN PATIENT CONDITION AT THIS TIME PATIENT VITALS STABLE, NO SIGNS OF ACUTE RESPIRATORY DISTRESS. MANAGER UI MADE AWARE. WILL CONTINUE TO MONITOR AND REASSESS FOR ANY CHANGES THROUGHOUT THE SHIFT.
[2020-07-02 04:00] VITALS: BP 132/61
[2020-07-02] MEDS: IV D5/ 0.9% NACL 1,000 ML IV PRN (04:01)
[2020-07-02 06:45] LABS: CALCIUM, SERUM 7.7 mg/dL (8.5-10.1); CREATININE 0.7 mg/dL (0.6-1.3)
--- NOTE | 2020-07-02 06:52 | NUR ---
RN CLOSING NOTE: PATIENT REMAINS IN ROOM RESTING COMFORTABLY.NO SIGNS OF RESPIRATORY DISTRESS PATIENT STILL ON ROOM 2L OF O2 VIA NC ;TOLERATING WELL SATURATING @ >95% SP02.PATIENT IS CLEAN , DRY AND COMFORTABLE THROUGHOUT THE SHIFT. ALL DUE MEDS GIVEN ORDERED ; PATIENT TOLERATED WELL. SAFETY MEASURES IMPLEMENTED, BED IN LOWEST POSITION, LOCKED, SIDE RAILS UP, CALL LIGHT WITHIN REACH. PATIENT ENDORSED TO INCOMING SHIFT RN WITH STABLE VITAL SIGN AND FOR CONTINUITY OF CARE
[2020-07-02] MEDS: VANCOMYCIN 1 GM in IV D5W 250 ML IV SCH (07:49)
[2020-07-02 08:00] VITALS: BP 128/81
--- NOTE | 2020-07-02 08:00 | NUR ---
MS RN OPENING NOTES RECEIVED PATIENT IN BED, AWAKE, A/O X1, TALKING TO SELF. PATIENT ON ROOM AIR; BREATHING EVEN AND UNLABORED. NO COMPLAINS OF PAIN AT THIS TIME. IV ACCESS AT RFA G # 18 PRESENT AND INTACT INFUSING D5NS @75 MLS/HR. SAFETY PRECAUTIONS IN PLACE; BED IN LOW POSITION AND LOCKED, RAILS UP X2, CALL LIGHT WITHIN REACH. WILL CONTINUE TO MONITOR PATIENT.
[2020-07-02] MEDS: ISOSORBIDE MONONITRATE (30MG) 30 MG TAB.SR.24H PO SCH (08:26)
[2020-07-02] MEDS: ASPIRIN 81 MG TAB.CHEW PO SCH (08:26)
[2020-07-02] MEDS: MEMANTINE HCL 5 MG TABLET PO SCH ×2 (08:27→16:17)
[2020-07-02] MEDS: risperiDONE 0.25 MG TABLET PO SCH ×3 (08:27→21:15)
[2020-07-02] MEDS: MULTIVITAMINS,THERAGRAN 1 UDTAB TABLET PO SCH (08:27)
[2020-07-02] MEDS: DIVALPROEX SODIUM 125 MG CAP.SPRINK PO SCH ×2 (08:27→16:18)
[2020-07-02] MEDS: METOPROLOL TARTRATE 25 MG TABLET PO SCH ×2 (08:27→21:09)
[2020-07-02] MEDS: BENZTROPINE MESYLATE (1 MG) 1 MG TABLET PO SCH ×2 (08:28→16:18)
[2020-07-02] MEDS: CLONIDINE HCL 0.1MG/24H PTWK 1 EA PATCH TD SCH (08:28)
[2020-07-02] MEDS: ENOXAPARIN SODIUM 40 MG/0.4 ML DISP.SYRIN SQ SCH (08:29)
[2020-07-02] MEDS: hydrALAZINE HCL 50 MG TABLET PO SCH ×2 (08:40→16:18)
[2020-07-02] MEDS: THERAHONEY GEL 1.5 OZ TUBE TP SCH (08:41)
[2020-07-02] MEDS: CEFTRIAXONE 1 G in IV D5W 50 ML IV SCH (09:14)
[2020-07-02] MEDS: MUPIROCIN OINT 2% 22 GM TUBE NS SCH ×2 (10:00→21:19)
[2020-07-02 16:55] VITALS: BP 148/88
--- NOTE | 2020-07-02 18:35 | NUR ---
MS RN CLOSING NOTES PATIENT REMAINS IN BED, ASLEEP. PATIENT ON OXYGEN THERAPY AT 2 LPM VIA NASAL CANNULA; BREATHING EVEN AND UNLABORED. NO COMPLAINS OF PAIN DURING THE DAY. IV ACCESS AT L HAND G # 22 PRESENT AND INTACT INFUSING D5NS @75 MLS/HR. ALL NEEDS ATTENDED THROUGHOUT THE DAY. SAFETY PRECAUTIONS IN PLACE; BED IN LOW POSITION AND LOCKED, RAILS UP X2, CALL LIGHT WITHIN REACH. WILL ENDORSE TO MARKET DEVELOPER NURSE.
[2020-07-02 20:00] VITALS: BP 134/64
[2020-07-02] MEDS: ATORVASTATIN 40 MG TABLET PO SCH (21:12)
[2020-07-02] MEDS: GABAPENTIN 100 MG CAPSULE PO SCH (21:13)
[2020-07-02] MEDS: ACETAMINOPHEN 325 MG TABLET PO PRN (21:16)
[2020-07-03] MEDS: IPRATROPIUM NEB FS 0.5 MG/2.5 ML AMPUL.NEB NEB SCH ×4 (02:14→19:53)
[2020-07-03] MEDS: ALBUTEROL HALF STRENGTH 1.25 MG/3 ML VIAL.NEB NEB SCH ×4 (02:14→19:53)
[2020-07-03] MEDS: VANCOMYCIN 1 GM in IV D5W 250 ML IV SCH ×2 (02:25→19:43)
[2020-07-03] MEDS: IV D5/ 0.9% NACL 1,000 ML IV PRN ×2 (03:38→18:18)
[2020-07-03 04:00] VITALS: BP 114/58
[2020-07-03 06:18] LABS: CALCIUM, SERUM 7.7 mg/dL (8.5-10.1); CREATININE 0.7 mg/dL (0.6-1.3); POTASSIUM 4.3 mmol/L (3.5-5.1)
--- NOTE | 2020-07-03 07:22 | NUR ---
RN notes In bed resting comfortably. On 2 liters oxygen tolerating well. Breathing even and unlabored. at 1999 temperature was 100.9, Cooling measures provided. tylenol given with help. After 1 hour temperature went down to 100.4 and finally this morning temperature is 97.8.Vital signs within normal limits. Alert with confusion, non verbal. Endorsed to next shift for continuity of care.
[2020-07-03 08:00] VITALS: BP 122/55
[2020-07-03] MEDS: MULTIVITAMINS,THERAGRAN 1 UDTAB TABLET PO SCH (08:21)
[2020-07-03] MEDS: DIVALPROEX SODIUM 125 MG CAP.SPRINK PO SCH ×2 (08:21→16:55)
[2020-07-03] MEDS: ISOSORBIDE MONONITRATE (30MG) 30 MG TAB.SR.24H PO SCH (08:22)
[2020-07-03] MEDS: METOPROLOL TARTRATE 25 MG TABLET PO SCH ×2 (08:22→20:12)
[2020-07-03] MEDS: ASPIRIN 81 MG TAB.CHEW PO SCH (08:22)
[2020-07-03] MEDS: BENZTROPINE MESYLATE (1 MG) 1 MG TABLET PO SCH ×2 (08:23→16:55)
[2020-07-03] MEDS: risperiDONE 0.25 MG TABLET PO SCH ×3 (08:23→21:34)
[2020-07-03] MEDS: hydrALAZINE HCL 50 MG TABLET PO SCH ×2 (08:23→16:56)
[2020-07-03] MEDS: MEMANTINE HCL 5 MG TABLET PO SCH ×2 (08:23→16:55)
[2020-07-03] MEDS: MUPIROCIN OINT 2% 22 GM TUBE NS SCH ×2 (08:24→20:11)
[2020-07-03] MEDS: THERAHONEY GEL 1.5 OZ TUBE TP SCH (08:24)
[2020-07-03] MEDS: CEFTRIAXONE 1 G in IV D5W 50 ML IV SCH (08:24)
[2020-07-03] MEDS: ENOXAPARIN SODIUM 40 MG/0.4 ML DISP.SYRIN SQ SCH (08:26)
[2020-07-03 16:00] VITALS: BP 108/63
--- NOTE | 2020-07-03 19:40 | NUR ---
RN OPENING NOTE RECEIVED PATIENT IN BED RESTING ALERT ORIENTED X1 CONFUSED ON ROOM AIR O2:97% IV SITE IS ON RIGHT HAND INTACT PATENT ON IV FLUID D5NS 70CC/HR INCONTINENT BOWEL/BLADDER,SAFETY MEASURE IMPLEMENT, BED IN LOW POSITION AND LOCKED,BED ALARM IS ON,SIDE RAIL UPX2 CONTINUE TO MONITOR.
[2020-07-03] MEDS: GABAPENTIN 100 MG CAPSULE PO SCH (21:34)
[2020-07-03] MEDS: ATORVASTATIN 40 MG TABLET PO SCH (21:34)
[2020-07-03] MEDS: ACETAMINOPHEN 325 MG TABLET PO PRN (23:13)
--- NOTE | 2020-07-03 23:17 | NUR ---
RN NOTE PATIENT TEMPERATURE IS 99.3 TYLENOL 650 MG GIVEN PRN FOR FEVER CONTINUE TO MONITOR.
[2020-07-04] VITALS: BP 95/36
[2020-07-04] MEDS: ALBUTEROL HALF STRENGTH 1.25 MG/3 ML VIAL.NEB NEB SCH ×4 (01:57→19:57)
[2020-07-04] MEDS: IPRATROPIUM NEB FS 0.5 MG/2.5 ML AMPUL.NEB NEB SCH ×4 (01:57→19:57)
--- NOTE | 2020-07-04 04:00 | NUR ---
RN NOTE PATIENT TEMPERATURE IS 98.7 CONTINUE TO MONITOR
[2020-07-04 06:14] LABS: CALCIUM, SERUM 7.6 mg/dL (8.5-10.1); CREATININE 0.6 mg/dL (0.6-1.3); POTASSIUM 4.3 mmol/L (3.5-5.1)
--- NOTE | 2020-07-04 06:48 | NUR ---
RN CLOSING NOTE PATIENT REMAINS ON ALERT ORIENTED X2 CONFUSED VERBALLY RESPONSIVE NO SOB NOT ACUTE DISTRESS NOTED,ON ROOM AIR O2:98% IV SITE IS ON RIGHT HAND INTACT PATENT ON D5NS IV FLUID 70CC/HR, ALL DUE MEDS GIVEN MD ORDERED KEPT CLEAN AND DRY,KEPT COMFORTABLE IMPLEMENTED SAFETY MEASURE,ALL NEEDS MET.ENDORSE NEXT COMING SHIFT FOR CONTINUATION OF CARE.
--- NOTE | 2020-07-04 07:26 | NUR ---
RN OPENING NOTES PATIENT IS IN BED WITH HOB AT SEMI FOWLERS POSITION. PATIENT IS CURRENTLY ON ROOM AIR WITH NO SIGNS OF LABORED BREATHING. PATIENT IS AOX1. LEFT AND RIGHT FOOT WOUNDS ARE NOTED. RHAND IV ACCESS IS PATENT, INTACT, AND HAS NO SIGNS OF INFILTRATION. BED IS LOCKED IN THE LOWEST POSITION, 3 GUARD RAILS RAISED, CALL MO WITHIN REACH, AND ALL HOSPITAL SAFETY PRECAUTIONS ARE BEING FOLLOWED. WILL CONTINUE TO MONITOR THROUGHOUT SHIFT.
[2020-07-04 08:00] VITALS: BP 120/60
[2020-07-04] MEDS: DIVALPROEX SODIUM 125 MG CAP.SPRINK PO SCH ×2 (08:25→16:58)
[2020-07-04] MEDS: MULTIVITAMINS,THERAGRAN 1 UDTAB TABLET PO SCH (08:26)
[2020-07-04] MEDS: BENZTROPINE MESYLATE (1 MG) 1 MG TABLET PO SCH ×2 (08:26→16:58)
[2020-07-04] MEDS: ASPIRIN 81 MG TAB.CHEW PO SCH (08:26)
[2020-07-04] MEDS: risperiDONE 0.25 MG TABLET PO SCH ×3 (08:26→21:12)
[2020-07-04] MEDS: MEMANTINE HCL 5 MG TABLET PO SCH ×2 (08:26→16:58)
[2020-07-04] MEDS: METOPROLOL TARTRATE 25 MG TABLET PO SCH ×2 (08:29→20:40)
[2020-07-04] MEDS: MUPIROCIN OINT 2% 22 GM TUBE NS SCH ×2 (08:31→20:40)
[2020-07-04] MEDS: CEFTRIAXONE 1 G in IV D5W 50 ML IV SCH (08:31)
[2020-07-04] MEDS: ENOXAPARIN SODIUM 40 MG/0.4 ML DISP.SYRIN SQ SCH (08:34)
[2020-07-04] MEDS: THERAHONEY GEL 1.5 OZ TUBE TP SCH (08:35)
[2020-07-04] MEDS: IV D5/ 0.9% NACL 1,000 ML IV PRN ×2 (08:44→23:47)
--- NOTE | 2020-07-04 09:07 | NUR ---
rn note holding isosorbide due to bp of 120/60 with 2 other bp meds. will reassess bp and either administer later during shift or continue to hold.
[2020-07-04] MEDS: hydrALAZINE HCL 50 MG TABLET PO SCH ×2 (09:14→16:59)
[2020-07-04] MEDS: ISOSORBIDE MONONITRATE (30MG) 30 MG TAB.SR.24H PO SCH (11:15)
[2020-07-04 16:00] VITALS: BP 125/58
--- NOTE | 2020-07-04 18:41 | NUR ---
RN CLOSING NOTE PATIENT IS IN BED WITH HOB AT SEMI FOWLERS POSITION. PATIENT IS CURRENTLY ON ROOM AIR WITH NO SIGNS OF LABORED BREATHING. PATIENT IS AOX1. LEFT AND RIGHT FOOT WOUNDS HAD APPROPRIATE WOUND CARE APPLIED. RHAND IV ACCESS IS PATENT, INTACT, AND HAS NO SIGNS OF INFILTRATION. BED IS LOCKED IN THE LOWEST POSITION, 3 GUARD RAILS RAISED, CALL MO WITHIN REACH, AND ALL HOSPITAL SAFETY PRECAUTIONS ARE BEING FOLLOWED. ALL DUE MEDS GIVEN AND PATIENT REMAINED STABLE THROUGHOUT SHIFT. WILL ENDORSE TO MANAGER NET RN FOR ANNE.
--- NOTE | 2020-07-04 19:15 | NUR ---
rn opening notes received pt in bed, awake. a/o x1 confused. pt is on room air, no s/s of resp distress or sob noted breathing is even and unlabored. pt is on med surg monitoring. pt is on ivf d5ns @ 70ml/hr on Right hand iv. no s/s of infiltration noted. abnormal flexion/contracted noted on lower extremities. no s/s of pain noted. safety measures in place isolation precautions in place as applicable, hob elevated 40 degrees as ordered, aspiration precautions. side rails up x3, bed locked in lowest position with bed alarm on. call light within reach. will cont to monitor closely throughout shift.
[2020-07-04 20:00] VITALS: BP 158/65
[2020-07-04] MEDS: ACETAMINOPHEN 325 MG TABLET PO PRN (20:40)
--- NOTE | 2020-07-04 20:45 | NUR ---
tylenol prn administered, bed bath done, cooling measures in place for temp of 100.7. will cont to monitor Addendum: 07/05/20 at 0537 by LEXIE JUNIOR RN reassessment @2200 temp 98.5
[2020-07-04] MEDS: GABAPENTIN 100 MG CAPSULE PO SCH (21:11)
[2020-07-04] MEDS: ATORVASTATIN 40 MG TABLET PO SCH (21:12)
--- NOTE | 2020-07-05 01:34 | NUR ---
upon rounds, pt resting in bed. no distress noted at this time. will cont to closely monitor.
[2020-07-05] MEDS: ALBUTEROL HALF STRENGTH 1.25 MG/3 ML VIAL.NEB NEB SCH ×4 (02:04→20:36)
[2020-07-05] MEDS: IPRATROPIUM NEB FS 0.5 MG/2.5 ML AMPUL.NEB NEB SCH ×4 (02:04→20:36)
[2020-07-05 04:00] VITALS: BP 131/59
--- NOTE | 2020-07-05 06:31 | NUR ---
Rn closing notes Pt remains in bed, no significant changes. Pt confused occasionally, then reoriented. Cooperative with care. bed bath done, wound care done, oral care done. All due meds given. All needs attended. pt remains afebrile at this time. Ivf d5ns running at 70ml/hr as ordered, no s/s of infiltration noted. Pt turned and repositioned q2h. safety measures in place. Hob elevated bed locked in lowest position, side rails up x2, call light within reach. Will endorse to oncoming nurse for continuation of care.
[2020-07-05 06:46] LABS: CALCIUM, SERUM 7.2 mg/dL (8.5-10.1); CREATININE 0.6 mg/dL (0.6-1.3); POTASSIUM 3.6 mmol/L (3.5-5.1)
--- NOTE | 2020-07-05 07:15 | NUR ---
RN OPENING NOTES PT RECEIVED IN BED IN SEMI-FOWLERS POSITION. PATIENT ON ROOM AIR TOLERATING WELL. PT CONFUSED OCCASIONALLY. IVF D5NS RUNNING AT 70 ML/HR ON RIGHT HAND PERIPHERAL IV. NO S/S OF INFILTRATION NOTED. SAFETY PRECAUTIONS IMPLEMENTED, SIDE RAILS UP X2, BED LOCKED IN LOWEST POSITION, CALL LIGHT WITHIN REACH. WILL CONTINUE TO MONITOR AND PROVIDE CARE THROUGHOUT SHIFT.
[2020-07-05] MEDS: MEMANTINE HCL 5 MG TABLET PO SCH ×2 (08:20→17:13)
[2020-07-05] MEDS: ASPIRIN 81 MG TAB.CHEW PO SCH (08:21)
[2020-07-05] MEDS: hydrALAZINE HCL 50 MG TABLET PO SCH ×2 (08:21→17:14)
[2020-07-05] MEDS: DIVALPROEX SODIUM 125 MG CAP.SPRINK PO SCH ×2 (08:22→17:13)
[2020-07-05] MEDS: risperiDONE 0.25 MG TABLET PO SCH ×3 (08:22→22:38)
[2020-07-05] MEDS: CEFTRIAXONE 1 G in IV D5W 50 ML IV SCH (08:22)
[2020-07-05] MEDS: MULTIVITAMINS,THERAGRAN 1 UDTAB TABLET PO SCH (08:22)
[2020-07-05] MEDS: METOPROLOL TARTRATE 25 MG TABLET PO SCH ×2 (08:23→20:02)
[2020-07-05] MEDS: BENZTROPINE MESYLATE (1 MG) 1 MG TABLET PO SCH ×2 (08:24→17:13)
[2020-07-05] MEDS: ISOSORBIDE MONONITRATE (30MG) 30 MG TAB.SR.24H PO SCH (08:24)
[2020-07-05] MEDS: ENOXAPARIN SODIUM 40 MG/0.4 ML DISP.SYRIN SQ SCH (08:28)
[2020-07-05] MEDS: MUPIROCIN OINT 2% 22 GM TUBE NS SCH ×2 (09:20→20:03)
[2020-07-05] MEDS: THERAHONEY GEL 1.5 OZ TUBE TP SCH (09:21)
[2020-07-05] MEDS: VANCOMYCIN 1 GM in IV D5W 250 ML IV SCH (11:01)
[2020-07-05 12:00] VITALS: BP 140/63
[2020-07-05] MEDS: IV D5/ 0.9% NACL 1,000 ML IV PRN (17:13)
--- NOTE | 2020-07-05 19:10 | NUR ---
MS RN OPENING NOTES: RECEIVED PATIENT IN BED, AWAKE, CONFUSED, HOB ELEVATED AT 45 DEGREES. NO S/S OF DISTRESS NOTED. BED IN LOWEST AND LOCKED POSITION. WITH SLIGHT LY WHEEZING.
--- NOTE | 2020-07-05 19:36 | NUR ---
RN CLOSING NOTES PT RECEIVED IN BED IN SEMI-FOWLERS POSITION. PATIENT ON ROOM AIR TOLERATING WELL. PT CONFUSED OCCASIONALLY. IVF D5NS RUNNING AT 70 ML/HR ON RIGHT HAND PERIPHERAL IV. NO S/S OF INFILTRATION NOTED. SAFETY PRECAUTIONS IMPLEMENTED, SIDE RAILS UP X2, BED LOCKED IN LOWEST POSITION, CALL LIGHT WITHIN REACH. WILL ENDORSE CONTINUATION OF CARE TO UPCOMING SHIFT.
[2020-07-05 20:00] VITALS: BP 173/76
[2020-07-05] MEDS: ACETAMINOPHEN 325 MG TABLET PO PRN (20:02)
[2020-07-05 22:34] VITALS: BP 141/60
[2020-07-05] MEDS: GABAPENTIN 100 MG CAPSULE PO SCH (22:37)
[2020-07-05] MEDS: ATORVASTATIN 40 MG TABLET PO SCH (22:37)
[2020-07-06] MEDS: ALBUTEROL HALF STRENGTH 1.25 MG/3 ML VIAL.NEB NEB SCH ×4 (01:33→20:02)
[2020-07-06] MEDS: IPRATROPIUM NEB FS 0.5 MG/2.5 ML AMPUL.NEB NEB SCH ×4 (01:33→20:02)
--- NOTE | 2020-07-06 06:45 | NUR ---
MS RN CLOSING NOTES: PATIENT IN BED, AWAKE, CONFUSED. NO S/S OF DISTRESS NOTED. BED IN LOWEST AND LOCKED POSITION. BED ALARM ON. HOB ELEVATED AT 40 DEGREES AT ALL TIMES. RESTED THROUGHOUT THE NIGHT. HAD LARGE BM THIS MORNING, SOFT, BROWNISH COLOR STOOL. HAD FEVER LAST NIGHT OF TEMP 100.0 TYLENOL 650 MG PO GIVEN, TEMP RECHECKED=97.5 PER AXILLA. KEPT PATIENT CLEAN AND DRY AND COMFORTABLE. BLE WOUND TREATMENTS DONE ORDERED. OFFLOADED. TURNED AND REPOSITIONED [id number].
[2020-07-06 07:14] LABS: CALCIUM, SERUM 7.7 mg/dL (8.5-10.1); CREATININE 0.6 mg/dL (0.6-1.3); POTASSIUM 4.1 mmol/L (3.5-5.1)
--- NOTE | 2020-07-06 07:58 | NUR ---
MS RN OPENING NOTE PATIENT IS IN BED RESTING. PATIENT IS IN NO ACUTE DISTRESS. PATIENT IS ON ROOM AIR. TOLERATING WELL. NO SOB NOTED. KEEP THE HEAD OF THE BED AT 40 DEGREES, ASPIRATION PRECAUTIONS. SAFETY PRECAUTIONS ARE IN PLACE. BED IS LOCKED AND IN THE LOWEST POSITION, WITH SIDE RAILS ARE UP. WILL CONTINUE TO MONITOR CLOSELY THROUGHOUT THE SHIFT.
[2020-07-06] MEDS: DIVALPROEX SODIUM 125 MG CAP.SPRINK PO SCH ×2 (09:17→16:25)
[2020-07-06] MEDS: CEFTRIAXONE 1 G in IV D5W 50 ML IV SCH (09:17)
[2020-07-06] MEDS: BENZTROPINE MESYLATE (1 MG) 1 MG TABLET PO SCH ×2 (09:17→16:25)
[2020-07-06] MEDS: MEMANTINE HCL 5 MG TABLET PO SCH ×2 (09:17→16:26)
[2020-07-06] MEDS: ISOSORBIDE MONONITRATE (30MG) 30 MG TAB.SR.24H PO SCH (09:18)
[2020-07-06] MEDS: ASPIRIN 81 MG TAB.CHEW PO SCH (09:18)
[2020-07-06] MEDS: METOPROLOL TARTRATE 25 MG TABLET PO SCH ×2 (09:18→21:13)
[2020-07-06] MEDS: hydrALAZINE HCL 50 MG TABLET PO SCH ×2 (09:19→16:26)
[2020-07-06] MEDS: ENOXAPARIN SODIUM 40 MG/0.4 ML DISP.SYRIN SQ SCH (09:20)
[2020-07-06] MEDS: MULTIVITAMINS,THERAGRAN 1 UDTAB TABLET PO SCH (09:21)
[2020-07-06] MEDS: risperiDONE 0.25 MG TABLET PO SCH ×3 (09:21→21:13)
[2020-07-06] MEDS: THERAHONEY GEL 1.5 OZ TUBE TP SCH (09:23)
[2020-07-06] MEDS: IV D5/ 0.9% NACL 1,000 ML IV PRN (09:24)
[2020-07-06] MEDS: MUPIROCIN OINT 2% 22 GM TUBE NS SCH ×2 (09:24→21:13)
[2020-07-06] MEDS: VANCOMYCIN 1 GM in IV D5W 250 ML IV SCH (10:07)
[2020-07-06 12:50] VITALS: BP 143/65
--- NOTE | 2020-07-06 18:28 | NUR ---
TRIED IV 3X UNSUCCESSFUL OBTAINED MIDLINE ORDER,NURSING SUP MADE AWARE.
--- NOTE | 2020-07-06 18:53 | NUR ---
MS RN CLOSING NOTE PATIENT IS IN BED RESTING. PATIENT IS IN NO ACUTE DISTRESS. PATIENT IS BACK ON 2L OXYGEN NC. TOLERATING WELL. NO SOB NOTED. KEEP THE HEAD OF THE BED AT 40 DEGREES, ASPIRATION PRECAUTIONS. PATIENT HAS A MIDLINE ORDER PLACED. SAFETY PRECAUTIONS ARE IN PLACE. BED IS LOCKED AND IN THE LOWEST POSITION, WITH SIDE RAILS ARE UP. ENDORSE PATIENT TO MEMBERSHIP CORRESPONDENT NURSE FOR ANNE.
--- NOTE | 2020-07-06 19:08 | NUR ---
RN NOTE RECEIVED PT ALERT AND ORIENTED X 2 IN BED WITH HEAD OF BED ELEVATED. REORIENTED PT PRN. ON 2L OF O2 VIA NC. RESPIRATIONS UNLABORED. PT DENIES PIN OR DISCOMFORT. ASPIRATION PRECAUTIONS IN PLACE. PATIENT HAS PENDING MIDLINE INSERTION. BED ALARM ON, SAFETY PRECAUTIONS ARE IN PLACE. BED IS LOCKED AND IN THE LOWEST POSITION, WITH SIDE RAILS ARE UP. WILL MONITOR PATIENT.
[2020-07-06 20:00] VITALS: BP 135/62
--- NOTE | 2020-07-06 20:00 | NUR ---
RN NOTE 24G IV ON RIGHT THUMB PLACED. PT TOLERATED WELL. IVF RESUMED ORDERED. Addendum: 07/06/20 at 2008 by CHRISTY CEE RN ERROR. 24 G IV ON LEFT THUMB PLACED. PT TOLERATED WELL. IVF RESUMED ORDERED.
[2020-07-06] MEDS: ACETAMINOPHEN 325 MG TABLET PO PRN (21:13)
[2020-07-06] MEDS: GABAPENTIN 100 MG CAPSULE PO SCH (21:13)
[2020-07-06] MEDS: ATORVASTATIN 40 MG TABLET PO SCH (21:13)
[2020-07-07] VITALS (17 sets, daily range): BP systolic 127–177; BP diastolic 55–113
[2020-07-07] MEDS: ALBUTEROL HALF STRENGTH 1.25 MG/3 ML VIAL.NEB NEB SCH ×4 (01:41→20:12)
[2020-07-07] MEDS: IPRATROPIUM NEB FS 0.5 MG/2.5 ML AMPUL.NEB NEB SCH ×4 (01:41→20:12)
[2020-07-07] MEDS: IV D5/ 0.9% NACL 1,000 ML IV PRN ×2 (04:22→21:30)
--- NOTE | 2020-07-07 06:45 | NUR ---
RN NOTE NO ACUTE CHANGES OBSERVED OVERNIGHT. PT SLEEPING IN BED WITH HEAD OF BED ELEVATED BUT EASILY AROUSABLE TO STIMULI. ON 2L OF O2 VIA NC. RESPIRATIONS UNLABORED. NO SIGNS OF DENIES PIN OR DISCOMFORT. ASPIRATION PRECAUTIONS IN PLACE. PATIENT HAS PENDING MIDLINE INSERTION. PT WITH 24G IV ON LEFT HAND WITH D5NS @ 70CC/HOUR ORDERED. IV SITE WITHOUT SIGNS OF COMPLICATIONS. BED ALARM ON, SAFETY PRECAUTIONS ARE IN PLACE. BED IS LOCKED AND IN THE LOWEST POSITION, WITH SIDE RAILS ARE UP. CALL LIGHT WITHIN REACH, WILL ENDORSE TO MORNING RN FOR ANNE.
[2020-07-07 07:07] LABS: CALCIUM, SERUM 7.8 mg/dL (8.5-10.1); CREATININE 0.6 mg/dL (0.6-1.3); POTASSIUM 4.3 mmol/L (3.5-5.1)
--- NOTE | 2020-07-07 07:52 | NUR ---
RN OPENING NOTE PT IS AWAKE IN BED RESTING. A/O X1. NO SIGNS OF PAIN OR NAUSEA PRESENT. CURRENTLY ON 2L NC WITH NO SOB OR RESPIRATORY DISTRESS PRESENT. WHEEZES PRESENT ON AUSCULTATION CURRENTLY ON BEDREST WITH DIAPER PRESENT. SACRAL SCAR PRESENT. WOUNDS PRESENT ON BILATERAL LOWER EXTREMITIES. NO EDEMA PRESENT. HL PRESENT ON R THUMB. SAFETY MEASURES IN PLACE. SIDE RAILS RAISED. BED LOWERED. CALL LIGHT WITHIN REACH. WILL CONTINUE TO MONITOR..
[2020-07-07] MEDS: METOPROLOL TARTRATE 25 MG TABLET PO SCH ×3 (09:00→21:08)
[2020-07-07] MEDS: DIVALPROEX SODIUM 125 MG CAP.SPRINK PO SCH ×3 (09:00→16:41)
[2020-07-07] MEDS: BENZTROPINE MESYLATE (1 MG) 1 MG TABLET PO SCH ×3 (09:00→16:41)
[2020-07-07] MEDS: risperiDONE 0.25 MG TABLET PO SCH ×4 (09:00→21:04)
[2020-07-07] MEDS: MEMANTINE HCL 5 MG TABLET PO SCH ×3 (09:00→16:41)
[2020-07-07] MEDS: hydrALAZINE HCL 50 MG TABLET PO SCH ×3 (09:00→16:49)
--- NOTE | 2020-07-07 09:00 | NUR ---
RN MEDICINE NOTE PATIENT PO MEDS NOT GIVEN DUE TO ALTERED MENTAL STATUS. PT A/OX1 AND EXTREMELY LETHARGIC. WILL CONTINUE TO MONITOR.
[2020-07-07] MEDS: MUPIROCIN OINT 2% 22 GM TUBE NS SCH ×2 (09:18→21:07)
[2020-07-07] MEDS: MULTIVITAMINS,THERAGRAN 1 UDTAB TABLET PO SCH (09:19)
[2020-07-07] MEDS: ASPIRIN 81 MG TAB.CHEW PO SCH (09:19)
[2020-07-07] MEDS: ISOSORBIDE MONONITRATE (30MG) 30 MG TAB.SR.24H PO SCH (09:20)
[2020-07-07] MEDS: THERAHONEY GEL 1.5 OZ TUBE TP SCH (09:21)
[2020-07-07] MEDS: ENOXAPARIN SODIUM 40 MG/0.4 ML DISP.SYRIN SQ SCH (09:24)
[2020-07-07 09:38] LABS: ABG OXYGEN SATURATION 96.9 % (92.0-98.5); ABG PCO2 51.2 mmHg (35.0-45.0); ABG PH 7.313 (7.350-7.450); ABG PO2 101.6 mmHg (75.0-100.0); AaDO2 37.6 mmHg; COHb 0.3 % (0.5-1.5); MetHb 0.5 % (0.0-1.5); O2Hb 96.1 % (94.0-97.0); SITE, ABG Right Radial; VENT MODE, BG NASAL CANNULA
--- NOTE | 2020-07-07 10:15 | NUR ---
CHECK AND TRANSFER BEADER NOTE PATIENT TRANSFERRED TO ICU, ROOM 262. REPORT GIVEN TO KRISTINE AT BEDSIDE FOR ANNE.
--- NOTE | 2020-07-07 10:53 | NUR ---
PATIENT RECEIVED FROM TELE, PATIENT IS AOX1, REPORTED TO HAVE AMS SINCE THIS AM. PATIENT ON MONITOR SHOWING SR 80s. PATIENT PUT ON BIPAP SET BY RT. PATIENT HAS LEFT HAND IV RUNNING D5NS AT 70 ML/HR, NO SIGNS OF INFECTION OF INFILTRATION. PATIENT PENDING MIDLINE INSERTION. ALL SAFETY MEASURES IN PLACE. WILL CONTINUE TO MONITOR
[2020-07-07 11:53] LABS: ABG BASE EXCESS 0.8 mmol/L; ABG OXYGEN SATURATION 97.9 % (92.0-98.5); ABG PCO2 48.1 mmHg (35.0-45.0); ABG PH 7.358 (7.350-7.450); ABG PO2 108.3 mmHg (75.0-100.0); AaDO2 49.1 mmHg; COHb 0.7 % (0.5-1.5); MetHb 0.3 % (0.0-1.5); O2Hb 96.9 % (94.0-97.0); SITE, ABG Right Radial; VENT MODE, BG BIPAP 15/5
--- NOTE | 2020-07-07 17:30 | NUR ---
RT NOTE: AWAKE AND ALERT PATIENT REMAINS OFF BIPAP ON NASAL CANNULA TOLERATING WELL. BIPAP IS STANDBY. AMBU BAG AT [facility]. CHARGE NURSE(CATHIE) AWARE. WILL CONTINUE TO MONITOR.
--- NOTE | 2020-07-07 19:12 | NUR ---
PATIENT REMAINS IN BED, NOW CURRENTLY ON 1L NASAL CANNULA. NO RESPIRATORY DISTRESS NOTED. PATIENT CONSUMED APPROXIMATELY 40% OF DINNER THIS SHIFT, WITH NO BM, 4X VOIDS.RFA #22 IV REMAINS INTACT, NO SIGNS OF INFECTION OR INFILTRATION. SEB MIDLINE IS OCCLUDED, ENDORSED TO ONCOMING RN. ALL SAFETY MEASURES IN PLACE. REPORT GIVEN TO ONCOMING RN FOR ANNE.
--- NOTE | 2020-07-07 19:32 | NUR ---
ASSISTANT MERCHANDISE MANAGER OPENING NOTES: Rec'd pt in bed, A&Ox1. On 1LPM NC tolerating well. No resp distress noted at this time. ST on tele monitor. RFA #33 and SEB midline patent and flushed. Dressings c/d/i. D5NS infusing at 70ml/hr. Safety measures in place. Will continue to monitor.
--- NOTE | 2020-07-07 20:14 | NUR ---
CRUDE OIL DRIVER NOTE: Pt's SEB midline occluded and not flushing. Charge nurse aware.
[2020-07-07] MEDS: ATORVASTATIN 40 MG TABLET PO SCH (21:04)
[2020-07-07] MEDS: GABAPENTIN 100 MG CAPSULE PO SCH (21:04)
[2020-07-08] VITALS (15 sets, daily range): BP systolic 103–157; BP diastolic 51–85
[2020-07-08] MEDS: IPRATROPIUM NEB FS 0.5 MG/2.5 ML AMPUL.NEB NEB SCH ×4 (02:34→20:16)
[2020-07-08] MEDS: ALBUTEROL HALF STRENGTH 1.25 MG/3 ML VIAL.NEB NEB SCH ×4 (02:34→20:16)
--- NOTE | 2020-07-08 04:24 | NUR ---
ADVERTISING EXECUTIVE NOTE: Pt pulled out RFA #22. No infiltration noted. Pressure applied, no bleeding/redness/pain noted. Will continue to monitor.
[2020-07-08 04:31] LABS: CALCIUM, SERUM 7.7 mg/dL (8.5-10.1); CREATININE 0.7 mg/dL (0.6-1.3); POTASSIUM 4.2 mmol/L (3.5-5.1)
[2020-07-08] MEDS: ACETAMINOPHEN 325 MG TABLET PO PRN ×2 (04:31→23:53)
--- NOTE | 2020-07-08 04:37 | NUR ---
MANAGER CONSUMER NOTE: Pt noted w/ temp of 101.4. Tylenol 650mg PRN given as ordered. Cooling measures in place. Will continue to monitor. Addendum: 07/08/20 at 0631 by DAVID GOETZ RN Temp decreased to 98.6. Will continue to monitor.
--- NOTE | 2020-07-08 05:14 | NUR ---
New IV site started on left hand #20 by charge nurse, patent and flushing
--- NOTE | 2020-07-08 07:00 | NUR ---
RN NOTES RECEIVED PT ON BED, ALERT/ CONFUSED , DOES NOT FOLLOW COMMAND, MUMBLING, ON 2L O2 N/C , O2 SAT WNL, ON TELE ST , L HAND IV SITE CLEAN,DRY AND INTACT,D5 NS AT 70CC /HR RUNNING , SR UP X3, CALL LIGHT WITHIN EASY REACH, BED LOCKED AND IN LOWEST POSITION, CONTINUE TO MONITOR .
[2020-07-08] MEDS: ASPIRIN 81 MG TAB.CHEW PO SCH (08:21)
[2020-07-08] MEDS: MULTIVITAMINS,THERAGRAN 1 UDTAB TABLET PO SCH (08:21)
[2020-07-08] MEDS: ISOSORBIDE MONONITRATE (30MG) 30 MG TAB.SR.24H PO SCH (08:21)
[2020-07-08] MEDS: BENZTROPINE MESYLATE (1 MG) 1 MG TABLET PO SCH ×2 (08:22→16:03)
[2020-07-08] MEDS: hydrALAZINE HCL 50 MG TABLET PO SCH ×2 (08:22→16:03)
[2020-07-08] MEDS: METOPROLOL TARTRATE 25 MG TABLET PO SCH ×2 (08:23→21:20)
[2020-07-08] MEDS: risperiDONE 0.25 MG TABLET PO SCH ×3 (08:23→21:19)
[2020-07-08] MEDS: MEMANTINE HCL 5 MG TABLET PO SCH ×2 (08:23→16:02)
[2020-07-08] MEDS: DIVALPROEX SODIUM 125 MG CAP.SPRINK PO SCH ×2 (08:23→16:02)
[2020-07-08] MEDS: THERAHONEY GEL 1.5 OZ TUBE TP SCH (08:25)
[2020-07-08] MEDS: MUPIROCIN OINT 2% 22 GM TUBE NS SCH ×2 (08:26→21:20)
--- NOTE | 2020-07-08 10:45 | NUR ---
RN NOTES PT TRANSFERRED TO ROOM 116-1 TELE STATUS PER MD ORDER ,VIA ACLS PROTOCOL , IN STABLE CONDITION, REPORT GIVEN TO JUSTIN GLASS FOR CONTINUITY OF CARE , NO BELONGINGS NOTED .
--- NOTE | 2020-07-08 10:45 | NUR ---
RN NOTES RECIEVED PATIENT FROM ICU , AOX1 CONFUSED , SCREAMING , ON 1LPM SPO2 OF 97% , NO DISTRESS NOTED , SR 85 ON BEDSIDE MONITOR , WOUND DRESSING C/D/I , SEB ML WITH NS @ 70ML/HRT INFUSING WELL , HOB @ 45 , WILL CONTINUE TO MONITOR .
[2020-07-08] MEDS ORDERED: MEROPENEM 500 MG in IV NS 0.9% 50 ML IV SCH (11:00)
[2020-07-08 11:08] LABS: BASOPHILS # (AUTO) 0.1 /CMM (0.0-0.2); BASOPHILS % (AUTO) 1.2 % (0.0-2.0); EOSINOPHILS % (AUTO) 2.9 % (0.0-6.0); HEMATOCRIT 23 % (33-45); HEMOGLOBIN 7.4 g/dL (11.5-14.8); LYMPHOCYTES # (AUTO) 1.8 /CMM (0.8-4.8); LYMPHOCYTES % (AUTO) 17.1 % (20.0-44.0); MEAN CORPUSCULAR HGB CONC 33 g/dl (31.0-36.0); MEAN CORPUSCULAR VOLUME 92 fL (82-100); MONOCYTES # (AUTO) 1.2 /CMM (0.1-1.30); MONOCYTES % (AUTO) 11.3 % (2.0-12.0); NEUTROPHILS # (AUTO) 7.2 /CMM (1.8-8.9); NEUTROPHILS % (AUTO) 67.5 % (43.0-81.0); PLATELET COUNT (AUTO) 397 /CMM (150-450); RED BLOOD CELL COUNT(AUTO) 2.44 MIL/uL (4.0-5.2); WHITE BLOOD COUNT (AUTO) 10.6 K/uL (4.3-11.0)
[2020-07-08] MEDS: IV D5/ 0.9% NACL 1,000 ML IV PRN (11:37)
[2020-07-08] MEDS: MEROPENEM 1 G in IV NS 0.9% 100 ML IV SCH ×2 (11:38→21:00)
[2020-07-08] MEDS ORDERED: LORAZEPAM INJ 2 MG/ML VIAL IV PRN (15:30)
--- NOTE | 2020-07-08 19:23 | NUR ---
RN NOTE RECEIVED PATIENT AWAKE WITH HEAD OF BED ELEVATED , AOX1 CONFUSED , REORIENTED PRN , ON 1LPM, RESPIRATIONS UNLABORED, NO SIGNS OF WHEEZING , NO DISTRESS NOTED , SR ON THE JIRA ADMINISTRATOR, SEB ML WITH IVF @ 70ML/HR INFUSING WELL , HOB @ 45 , SAFETY MEASURES IN PLACE PER PROTOCOL, WILL CONTINUE TO MONITOR .
[2020-07-08] MEDS: GABAPENTIN 100 MG CAPSULE PO SCH (21:19)
[2020-07-08] MEDS: ATORVASTATIN 40 MG TABLET PO SCH (21:19)
[2020-07-09] VITALS (30 sets, daily range): BP systolic 117–167; BP diastolic 59–88
--- NOTE | 2020-07-09 01:00 | NUR ---
RN NOTE ORAL TEMP RECHECKED: 98.6
--- NOTE | 2020-07-09 02:00 | NUR ---
RN NOTE COMPLETE BED BATH/AM CARE COMPLETED. PT TOLERATED WELL.
[2020-07-09] MEDS: IPRATROPIUM NEB FS 0.5 MG/2.5 ML AMPUL.NEB NEB SCH ×4 (02:14→19:33)
[2020-07-09] MEDS: ALBUTEROL HALF STRENGTH 1.25 MG/3 ML VIAL.NEB NEB SCH ×4 (02:14→19:33)
[2020-07-09] MEDS: IV D5/ 0.9% NACL 1,000 ML IV PRN ×2 (02:42→16:56)
[2020-07-09 06:36] LABS: BASOPHILS # (AUTO) 0.1 /CMM (0.0-0.2); BASOPHILS % (AUTO) 0.5 % (0.0-2.0); HEMATOCRIT 22 % (33-45); HEMOGLOBIN 7.3 g/dL (11.5-14.8); LYMPHOCYTES % (AUTO) 19.6 % (20.0-44.0); MEAN CORPUSCULAR HGB CONC 33 g/dl (31.0-36.0); MEAN CORPUSCULAR VOLUME 91 fL (82-100); MONOCYTES # (AUTO) 1.5 /CMM (0.1-1.30); MONOCYTES % (AUTO) 14.6 % (2.0-12.0); NEUTROPHILS # (AUTO) 6.1 /CMM (1.8-8.9); NEUTROPHILS % (AUTO) 61.3 % (43.0-81.0); PLATELET COUNT (AUTO) 413 /CMM (150-450); RED BLOOD CELL COUNT(AUTO) 2.45 MIL/uL (4.0-5.2)
--- NOTE | 2020-07-09 06:39 | NUR ---
RN NOTE NO ACUTE CHANGES OBSERVED OVERNIGHT. HEAD OF BED ELEVATED. CURRENTLY SLEEPING WITHOUT SIGNS OF APPARENT DISTRESS. ON 1L OF O2 VIA NC. RESPIRATIONS UNLABORED. NO WHEEZING AUDIBLE, SR/ST ON THE TELE MONITOR 88. WITH SEB MIDLINE INTACT WITH D5NS @ 70CC/HOUR RUNNING ORDERED WITHOUT SIGNS OF COMPLICATIONS AT SITE, SAFETY MEASURES IN PLACE PER PROTOCOL, BED LOCKED AND IN LOW POSITION, SIDE RAILS UP X 3, BED ALARM ON, ALL NEEDS CURRENTLY MET AND ATTENDED TO, WILL ENDORSE TO MORNING RN FOR ANNE.
--- NOTE | 2020-07-09 06:50 | NUR ---
RN NOTE PT NOTED TO BE WHEEZING AND WITH LABORED BREATHING. O2 SATURATION 92% WHILE ON 1L OF O2 VIA NC, INCREASED O2 TO 4L WHICH BROUGHT SPO2 TO 96%. PT MORE DIFFICULT TO AROUSE. STAT ABG ORDERED. RT AT BEDSIDE PT PLACED ON RESCUE BIPAP.
[2020-07-09 07:01] LABS: CALCIUM, SERUM 7.4 mg/dL (8.5-10.1); CREATININE 0.6 mg/dL (0.6-1.3); MAGNESIUM 1.6 mg/dL (1.8-2.4); PHOSPHORUS 3.4 mg/dL (2.5-4.9)
[2020-07-09 07:24] LABS: ABG PCO2 65.5 mmHg (35.0-45.0); ABG PH 7.246 (7.350-7.450); AaDO2 108.7 mmHg; COHb 0.7 % (0.5-1.5); MetHb 0.3 % (0.0-1.5); O2Hb 91.1 % (94.0-97.0); SITE, ABG Right Radial; VENT MODE, BG 4L NC
--- NOTE | 2020-07-09 07:30 | NUR ---
RN NOTE PT PLACED ON RESCUE BIPAP. MANAGER FINE DINING MADE AWARE. REPORT GIVEN TO MORNING RN FOR ANNE. PAGED.
--- NOTE | 2020-07-09 07:58 | NUR ---
FUR MIXER OPERATOR OPENING NOTES At apprx 7:05 am,shift boss staff noted on patient's bedside and patient on 4 liters of 02 with 02 sat o f96 % breathing labored and uneven. ABG done at bedside and patient's cannula switched to bipap. ABG results reported by RT to MD. Patient transferred to ICU . Report given to nurse who will be accompanying patient to ICU.
--- NOTE | 2020-07-09 08:00 | NUR ---
SCHOOL AIDE OPENING NOTE PT REPORT GIVEN BEDSIDE FROM QUAN GREEN. PT TRANSFERRED FROM [facility] TO ICU FOR HIGHER LEVEL OF CARE FOR BIPAP AIRWAY MANAGEMENT AT 0750. PT IN STABLE CONDITION, A/Ox1, NSR ON BEDSIDE MONITOR, ON BIPAP SETTINGS PER MD ORDER, TOLERATING WELL, SPO2 OF 100% NO SIGNS OF RESP DISTRESS OR SOB. PT HAS SEB MIDLINE FLUSHED, PATENT, AND INTACT, INFUSING D5 NS @ 70ML/HR. PT LT HAND #20 FLUSHED, PATENT AND INTACT WELL; BOTH IV SITES WITH NO SIGNS OF INFECTION OR INFILTRATION. PT JHAS SACRAL SCAR COVERED IN MEPILEX, LT ANKLE AND RT MEDIAL FOOT ULCERS COVERED IN MEPILEX AND WRAPPED. ALL PT SAFETY PRECAUTIONS IN PLACE, WILL CONT TO MONITOR
--- NOTE | 2020-07-09 08:02 | NUR ---
PT TRANSFERRED TO ICU AND PLACED BACK ON BIPAP WITH PREVIOUS SETTINGS. Addendum: 07/09/20 at 0802 by BHAKTI ABDUL RT Amended: Links added.
[2020-07-09] MEDS: MUPIROCIN OINT 2% 22 GM TUBE NS SCH ×2 (08:49→22:27)
[2020-07-09] MEDS: MEROPENEM 1 G in IV NS 0.9% 100 ML IV SCH ×2 (08:49→20:18)
[2020-07-09] MEDS: THERAHONEY GEL 1.5 OZ TUBE TP SCH (08:50)
[2020-07-09] MEDS: ISOSORBIDE MONONITRATE (30MG) 30 MG TAB.SR.24H PO SCH (09:00)
[2020-07-09] MEDS: MULTIVITAMINS,THERAGRAN 1 UDTAB TABLET PO SCH ×2 (09:00→10:58)
[2020-07-09] MEDS: ASPIRIN 81 MG TAB.CHEW PO SCH ×2 (09:00→10:59)
[2020-07-09] MEDS: METOPROLOL TARTRATE 25 MG TABLET PO SCH ×3 (09:00→20:18)
[2020-07-09] MEDS: MEMANTINE HCL 5 MG TABLET PO SCH ×4 (09:00→18:37)
[2020-07-09] MEDS: DIVALPROEX SODIUM 125 MG CAP.SPRINK PO SCH ×4 (09:00→18:37)
[2020-07-09] MEDS: risperiDONE 0.25 MG TABLET PO SCH ×4 (09:00→21:32)
[2020-07-09] MEDS: hydrALAZINE HCL 50 MG TABLET PO SCH ×4 (09:00→18:37)
[2020-07-09] MEDS: BENZTROPINE MESYLATE (1 MG) 1 MG TABLET PO SCH ×4 (09:00→18:37)
[2020-07-09] MEDS: CLONIDINE HCL 0.1MG/24H PTWK 1 EA PATCH TD SCH (09:26)
[2020-07-09] MEDS: Magnesium 1GM/D5W 100ML PREMIX 100 ML IV SCH ×2 (09:56→11:00)
--- NOTE | 2020-07-09 10:00 | NUR ---
QUAN NOTE PO MEDS NOT ADMINISTERED D/T PT BEING ON BIPAP Addendum: 07/09/20 at 1011 by DARSHAN LAMA RN DR LEWIS INFORMED
[2020-07-09 10:17] LABS: ABG BASE EXCESS -1.6 mmol/L; ABG OXYGEN SATURATION 92.3 % (92.0-98.5); ABG PCO2 41.9 mmHg (35.0-45.0); ABG PH 7.369 (7.350-7.450); ABG PO2 65.5 mmHg (75.0-100.0); AaDO2 99.2 mmHg; COHb 0.7 % (0.5-1.5); MetHb 0.2 % (0.0-1.5); O2Hb 91.5 % (94.0-97.0); SITE, ABG Right Radial; VENT MODE, BG IPAP 15 / 5 EPAP
--- NOTE | 2020-07-09 10:26 | NUR ---
placed into nasal cannula @ 2 l[address]2 flow per dr[address] locke. Addendum: 07/09/20 at 1027 by TOMMIE ALBARRAN RT Amended: Links added.
--- NOTE | 2020-07-09 10:30 | NUR ---
RN NOTE PER DR NGUYEN,PT PLACED ON 2LPM NC, NOCTURNAL BIPAP AND PRN ORDERED
--- NOTE | 2020-07-09 11:15 | NUR ---
RN NOTE PT 0900 CRUSHED PO MEDS ATTEMPTED TO GIVE MULTIPLE TIMES BUT PT TOO LETHARGIC/DROWSY FOR ADMIN
[2020-07-09] MEDS ORDERED: methylPREDNISolone SOD SUCC 125 MG/2ML VIAL IV SCH (12:00)
[2020-07-09] MEDS: methylPREDNISolone SOD SUCC 40 MG/ML VIAL IV SCH ×2 (12:23→16:07)
[2020-07-09] MEDS ORDERED: IPRATROPIUM NEB FS 0.5 MG/2.5 ML AMPUL.NEB NEB SCH (13:30)
--- NOTE | 2020-07-09 17:54 | NUR ---
RN NOTE AFTERNOON PO MEDS NOT GIVEN BECAUSE PT DID NOT PASS RN BEDSIDE SWALLOW EVAL, PT STILL LETHARGIC, CONFUSED AND UNABLE TO FOLLOW COMMANDS
--- NOTE | 2020-07-09 18:46 | NUR ---
RN NOTE PT MORE ALERT NOW. 1700 PO MEDS GIVENINCLUDING 100MG HYDRALIZINE BP IS ELEVATED, PT ALSO FED DINNER, 50% CONSUMED Addendum: 07/09/20 at 1847 by DARSHAN LAMA RN BEDSIDE SWALLOW EVAL PASSED
--- NOTE | 2020-07-09 18:50 | NUR ---
DEPUTY COMMISSIONER CLOSING NOTE PT MORE ALERT TOWARDS ENDS OF SHIFT. BEDSIDE SWALLOW EVAL PASSED, PT STILL CONFUSED. NO SIGN OF RESP DISTRESS OR SOB, BREATHING EVEN AND UNLABORED, PT ON NC 2LPM. NOCTURNAL AND RESCUE BIPAP ORDERED PER DR NGUYEN. ALL PT SAFETY PRECAUTIONS IN PLACE. WILL ENDORSE ANNE TO ONCOMING RN
--- NOTE | 2020-07-09 19:41 | NUR ---
HAND WRAPPER OPERATOR, INITIAL ASSESSMENT. RECEIVED THE PT REST ON THE BED. AWAKE, CONFUSED. OXYGEN 2L VIA NASAL CANNULA. SAT 98%.NO ACUTE DISTRESS NOTED.PT TODAY 2HOURS ON BIPAP. AFTER ABG CHANGED TO OXYGEN 2L NASAL CANNULA. IV LT UPPER ARMMID LINE. IVF D5NS 75ML/H.HOB ELEVATED. AFEBRILE.WILLCONTINUE TO MONITOR VITALS.
[2020-07-09] MEDS: GABAPENTIN 100 MG CAPSULE PO SCH (21:33)
[2020-07-09] MEDS: ATORVASTATIN 40 MG TABLET PO SCH (21:34)
[2020-07-09] MEDS ORDERED: MUPIROCIN OINT 2% 22 GM TUBE ONE (22:16)
[2020-07-09] MEDS: ACETAMINOPHEN 325 MG TABLET PO PRN (22:27)
--- NOTE | 2020-07-09 23:19 | NUR ---
neonatal icu coordinator. bipap placed.sat 100%. no acute distress noted. will continue to monitor
--- NOTE | 2020-07-09 23:21 | NUR ---
rn nicu, temperature 100.5. tab tylenol given per ordered.
[2020-07-10] VITALS (40 sets, daily range): BP systolic 93–147; BP diastolic 36–89
[2020-07-10] MEDS: ALBUTEROL HALF STRENGTH 1.25 MG/3 ML VIAL.NEB NEB SCH ×4 (01:35→19:56)
[2020-07-10] MEDS: IPRATROPIUM NEB FS 0.5 MG/2.5 ML AMPUL.NEB NEB SCH ×4 (01:35→19:57)
--- NOTE | 2020-07-10 03:38 | NUR ---
nicu rn. am care given. linen changed. remaining same bipap settings tolerated well. afebrile. hob elevated, turn and reposition q2h. ivf ns 70 ml/h.will continue tomonitor vitals
[2020-07-10 04:49] LABS: BASOPHILS % (AUTO) 0.2 % (0.0-2.0); LYMPHOCYTES # (AUTO) 0.9 /CMM (0.8-4.8); LYMPHOCYTES % (AUTO) 17.7 % (20.0-44.0); MEAN CORPUSCULAR HGB CONC 33 g/dl (31.0-36.0); MEAN CORPUSCULAR VOLUME 91 fL (82-100); MONOCYTES # (AUTO) 0.3 /CMM (0.1-1.30); MONOCYTES % (AUTO) 5.5 % (2.0-12.0); NEUTROPHILS # (AUTO) 3.9 /CMM (1.8-8.9); NEUTROPHILS % (AUTO) 76.6 % (43.0-81.0); PLATELET COUNT (AUTO) 382 /CMM (150-450); RED BLOOD CELL COUNT(AUTO) 2.13 MIL/uL (4.0-5.2); WHITE BLOOD COUNT (AUTO) 5.1 K/uL (4.3-11.0)
[2020-07-10 04:59] LABS: CALCIUM, SERUM 7.7 mg/dL (8.5-10.1); CREATININE 0.8 mg/dL (0.6-1.3); PHOSPHORUS 2.8 mg/dL (2.5-4.9); POTASSIUM 4.1 mmol/L (3.5-5.1)
[2020-07-10] MEDS: IV D5/ 0.9% NACL 1,000 ML IV PRN ×2 (05:09→22:03)
[2020-07-10 05:16] LABS: HEMATOCRIT 19 % (33-45); HEMOGLOBIN 6.4 g/dL (11.5-14.8)
[2020-07-10 06:10] LABS: LYMPHOCYTES % (MANUAL) 17 % (16-48); MONOCYTES % (MANUAL) 7 % (0-11.0); NEUTROPHILS % (MANUAL) 76 (42-76)
--- NOTE | 2020-07-10 06:51 | NUR ---
curriculum advisory teacher hemoglobin is 6.4/.notified md gant.1unit PRBC ordered
--- NOTE | 2020-07-10 08:00 | NUR ---
RN NOTES RECEIVED PATIENT IN THE BED ON N2-2L NC, NO ACUTE RESPIRATORY DISTRESS, PATIENT RESPONDING NAME , BUT CONFUSED SAME TIME. PATIENT BRADYCARDIC 56 HR ON BEDSIDE MONITOR. INFUSING D5NS AT 70 ML/HR ON LEFT MIDLINE, AND MERREM 200 ML/HR , MIDLINE FLASHING SLOW, CALLED MD AND GET NEW ORDERS MIDLINE INSERTION. PATIENT HEMOGLOBULIN IS 6.4 HAVE A ORDER OF ONE UNITS OF PRBC INFUSION. DUE MEDICATION ADMINISTERED, CALL LIGHT WITHIN TO REACH, WILL MONITORING.
[2020-07-10] MEDS: MEROPENEM 1 G in IV NS 0.9% 100 ML IV SCH ×2 (08:36→20:59)
[2020-07-10] MEDS: methylPREDNISolone SOD SUCC 40 MG/ML VIAL IV SCH ×2 (08:37→17:19)
[2020-07-10] MEDS: DIVALPROEX SODIUM 125 MG CAP.SPRINK PO SCH ×2 (08:38→17:18)
[2020-07-10] MEDS: MEMANTINE HCL 5 MG TABLET PO SCH ×2 (08:38→17:18)
[2020-07-10] MEDS: MULTIVITAMINS,THERAGRAN 1 UDTAB TABLET PO SCH (08:38)
[2020-07-10] MEDS: ASPIRIN 81 MG TAB.CHEW PO SCH (08:38)
[2020-07-10] MEDS: risperiDONE 0.25 MG TABLET PO SCH ×3 (08:38→22:02)
[2020-07-10] MEDS: BENZTROPINE MESYLATE (1 MG) 1 MG TABLET PO SCH ×2 (08:39→17:18)
[2020-07-10] MEDS: MUPIROCIN OINT 2% 22 GM TUBE NS SCH ×2 (08:41→21:55)
[2020-07-10] MEDS: THERAHONEY GEL 1.5 OZ TUBE TP SCH (08:41)
[2020-07-10] MEDS: METOPROLOL TARTRATE 25 MG TABLET PO SCH ×2 (08:42→21:00)
[2020-07-10] MEDS: ISOSORBIDE MONONITRATE (30MG) 30 MG TAB.SR.24H PO SCH (09:39)
--- NOTE | 2020-07-10 10:00 | NUR ---
RN NOTES GET CONSENT BLOOD TRANSFUSION PERMISSION FROM SON NAME MANFRED, CO-SIGN RN CO-WORKER NAFISA. WAITING NEW MIDLINE INSERTION, CALLED MARKETING PROGRAMS SPECIALIST, WHICH IS AVAILABLE IN ONE HR. WILL MONITORING.
[2020-07-10] MEDS: hydrALAZINE HCL 50 MG TABLET PO SCH ×2 (10:23→17:19)
--- NOTE | 2020-07-10 11:39 | NUR ---
RN NOTES STARTED ONE UNITS OF BLOOD TRANSFUSION AT THIS TIME ON RIGHT UPPER ARM MIDLINE, V/S TAKEN BP-101/52, P-53, R-14, O2-100, T-97.8. PATIENT REFUSED PAIN, A/O X1, CONFUSED, BUT FOLLOW SIMPLE COMMANDS. WILL MONITORING.
--- NOTE | 2020-07-10 12:05 | NUR ---
RN NOTES INCREASED BLOOD INFUSION 75 ML/HR, PATIENT STABLE, NO ACUTE RESPIRATORY DISTRESS, V/S TAKEN T-97.7, P52, R-17, BP-144/66. PATIENT REFUSED PAIN, AND DISCOMFORT. WILL MONITORING.
--- NOTE | 2020-07-10 12:33 | NUR ---
RN NOTES PATIENT EATING WITH ASSIST, LUNCH TOLERATED 25%, BP 121/52, P-62, R-19,T-97.7, NO ACUTE RESPIRATORY DISTRESS, ASSIST TURN AND REPOSITION , DUE MEDICATION ADMINISTERED. INCREASED BLOOD INFUSION 125 ML/HR, WILL MONITORING.
--- NOTE | 2020-07-10 14:50 | NUR ---
rn notes finished blood transfusion at this time, patient has no acute respiratory distress, v/s taken bp- 126/62, p-72, r-17, o2-100% nc, patient has no acute respiratory distress. will monitoring.
--- NOTE | 2020-07-10 17:13 | NUR ---
rn notes Bladder ultrasound shows 337 ml of output, because of not urinated, call hospitalist, and get TO order Walsh catheter insertion, order taken and carried out.
[2020-07-10] MEDS: ACETAMINOPHEN 325 MG TABLET PO PRN (17:19)
--- NOTE | 2020-07-10 17:19 | NUR ---
RN NOTES ADMINISTERED TYLENOL 650 MG PO PRN FOR PAIN BILATERAL LOWER EXTREMITIES, YELLING EACH TIME WHEN TOUCHING, OR REPOSITIONING.
--- NOTE | 2020-07-10 18:52 | NUR ---
RN NOTES PATIENT STABLE AT THIS TIME, MEDICATION WERE ADMINISTERED FOR PAIN EFFECTIVE, DUE MEDICATION ADMINISTERED. ASSIST TURN AND REPOSTION Q 2 HR, EAT DINNER 25% WITH TOTAL ASSIST. PATIENT GETTING ANXIOUS EASILY, GET CALM DOWN AFTER TAKING SCHEDULED DEPAKOTE. WAGGONER DRAINING YELLOW OUTPUT 180 ML. CALL LIGHT WITHIN TO REACH, ON O2-2L NC. ENDORSED ONCOMING NURSE FOLLOW PLAN OF CARE.
--- NOTE | 2020-07-10 20:00 | NUR ---
PATIENT IS ON 2L NC SATURATING AT 100%. NO SIGNS OF ANY RESPIRATORY DISTRESS. WILL CONTINUE TO MONITOR PATIENT IF AT ANYTIME NEEDING BIPAP. DISCUSSED WITH RT.
[2020-07-10] MEDS: FUROSEMIDE 20 MG/2 ML VIAL IV SCH (20:59)
[2020-07-10] MEDS: GABAPENTIN 100 MG CAPSULE PO SCH (22:02)
[2020-07-10] MEDS: ATORVASTATIN 40 MG TABLET PO SCH (22:02)
[2020-07-11] VITALS (17 sets, daily range): BP systolic 120–167; BP diastolic 57–73
[2020-07-11] MEDS: ALBUTEROL HALF STRENGTH 1.25 MG/3 ML VIAL.NEB NEB SCH ×4 (01:49→20:08)
[2020-07-11] MEDS: IPRATROPIUM NEB FS 0.5 MG/2.5 ML AMPUL.NEB NEB SCH ×4 (01:49→20:08)
[2020-07-11 04:17] LABS: BASOPHILS % (AUTO) 0.3 % (0.0-2.0); HEMATOCRIT 25 % (33-45); HEMOGLOBIN 8.2 g/dL (11.5-14.8); LYMPHOCYTES # (AUTO) 1.1 /CMM (0.8-4.8); LYMPHOCYTES % (AUTO) 18.7 % (20.0-44.0); MEAN CORPUSCULAR HGB CONC 33 g/dl (31.0-36.0); MEAN CORPUSCULAR VOLUME 90 fL (82-100); MONOCYTES # (AUTO) 0.4 /CMM (0.1-1.30); MONOCYTES % (AUTO) 6.1 % (2.0-12.0); NEUTROPHILS # (AUTO) 4.4 /CMM (1.8-8.9); NEUTROPHILS % (AUTO) 74.9 % (43.0-81.0); PLATELET COUNT (AUTO) 413 /CMM (150-450); RED BLOOD CELL COUNT(AUTO) 2.77 MIL/uL (4.0-5.2); WHITE BLOOD COUNT (AUTO) 5.9 K/uL (4.3-11.0)
[2020-07-11 04:29] LABS: CALCIUM, SERUM 7.8 mg/dL (8.5-10.1); CREATININE 0.8 mg/dL (0.6-1.3); MAGNESIUM 1.9 mg/dL (1.8-2.4); PHOSPHORUS 3.1 mg/dL (2.5-4.9); POTASSIUM 3.9 mmol/L (3.5-5.1)
--- NOTE | 2020-07-11 08:00 | NUR ---
RN NOTES RECEIVED PATIENT RESTING IN THE BED , NO ACUTE RESPIRATORY DISTRESS, HR-48, BP160/55. PATIENT ON O2-2LNC, GET BREATHING TREATMENT VIA RT. ABG DONE. WILL WAITING FOR RESULT.
[2020-07-11] MEDS: methylPREDNISolone SOD SUCC 40 MG/ML VIAL IV SCH ×2 (08:33→16:36)
[2020-07-11] MEDS: DIVALPROEX SODIUM 125 MG CAP.SPRINK PO SCH ×2 (08:33→16:37)
[2020-07-11] MEDS: MEROPENEM 1 G in IV NS 0.9% 100 ML IV SCH ×2 (08:33→20:24)
[2020-07-11] MEDS: risperiDONE 0.25 MG TABLET PO SCH ×3 (08:34→21:41)
[2020-07-11] MEDS: MEMANTINE HCL 5 MG TABLET PO SCH ×2 (08:34→16:37)
[2020-07-11] MEDS: MULTIVITAMINS,THERAGRAN 1 UDTAB TABLET PO SCH (08:34)
[2020-07-11] MEDS: MUPIROCIN OINT 2% 22 GM TUBE NS SCH ×2 (08:35→21:42)
[2020-07-11] MEDS: THERAHONEY GEL 1.5 OZ TUBE TP SCH (08:36)
[2020-07-11] MEDS: FUROSEMIDE 20 MG/2 ML VIAL IV SCH ×2 (08:37→16:36)
[2020-07-11] MEDS: BENZTROPINE MESYLATE (1 MG) 1 MG TABLET PO SCH ×2 (08:37→16:37)
[2020-07-11 08:45] LABS: ABG BASE EXCESS 0.5 mmol/L; ABG OXYGEN SATURATION 91.5 % (92.0-98.5); ABG PCO2 45.7 mmHg (35.0-45.0); ABG PH 7.372 (7.350-7.450); ABG PO2 63.6 mmHg (75.0-100.0); AaDO2 31.4 mmHg; COHb 0.2 % (0.5-1.5); MetHb 0.5 % (0.0-1.5); O2Hb 90.9 % (94.0-97.0); SITE, ABG Left Radial; VENT MODE, BG ROOM AIR
--- NOTE | 2020-07-11 09:00 | NUR ---
RN NOTES PATIENT AWAKE, ASSIST EATING BREAKFAST TOLERATED 70 % WITH TOTAL ASSIST , ELEVATED HOB 90 % PATIENT PRONE TO ASPIRATION. DUE MEDICATION ADMINISTERED VIA CRUSH, PATIENT RESPONDING NAME BUT CONFUSED ALL THE TIME, TALKING SELF, GET IRRITABLE EASILY. CALL LIGHT WITHIN TO REACH. WILL MONITORING. PATIENT ROOM AIR, O2-96%.
[2020-07-11] MEDS: METOPROLOL TARTRATE 25 MG TABLET PO SCH ×2 (09:36→21:41)
[2020-07-11] MEDS: hydrALAZINE HCL 50 MG TABLET PO SCH ×2 (09:47→16:37)
[2020-07-11] MEDS: ISOSORBIDE MONONITRATE (30MG) 30 MG TAB.SR.24H PO SCH (10:11)
--- NOTE | 2020-07-11 10:32 | NUR ---
RN NOTES GET ORDER VIA IRON CUTTER Dr WENDY MILLER TO TRANSFER PATIENT [facility]/TELE.
[2020-07-11] MEDS: IV D5/ 0.9% NACL 1,000 ML IV PRN (12:40)
[2020-07-11] MEDS: ENSURE ENLIVE 237 ML LIQUID (VANILLA) PO SCH ×2 (13:17→17:00)
--- NOTE | 2020-07-11 14:00 | NUR ---
RN NOTES TRANSFERRED PATIENT TO THE [facility] ROOM 120. PATIENT STABLE, NO ACUTE RESPIRATORY DISTRESS, VSS. BEDSIDE REPORT GIVEN CHARGE NURSE SOON FOLLOW UP CARE.
--- NOTE | 2020-07-11 15:27 | NUR ---
RN NOTES Received patient's report from charge nurse. Patient is on room air. No sob noted and no s/sx of respiratory distress. Patient's head of bed kept elevated. Will continue to monitor. Call light with in reach.
--- NOTE | 2020-07-11 18:49 | NUR ---
RN CLOSING NOTES Patient is alert and verbally responsive. Patient is breathing even and unlabored. No s/s of respiratory distress noted. On room air with 02 saturation of 93%. HOB kept elevated. IV fluids running to right upper arm midline. Patient noted with 40% intake of dinner and output of urine was 175 cc. Will endorse to next shift for patrick.Bed is in lowest and locked position. Call light with in reach.
--- NOTE | 2020-07-11 19:12 | NUR ---
RN NOTE RECEIVED PT AWAKE WITH HEAD OF BED ELEVATED. CONFUSED AND ORIENTED X 1 (TO NAME). REORIENTED PRN. PT IS ON ROOM AIR, RESPIRATIONS UNLABORED, NO WHEEZING NOTED. NSR ON THE SPRING PRODUCTION SUPERVISOR. DENIES PAIN OR DISCOMFORT. WITH WAGGONER CATHETER PATENT AND IN PLACE DRAINING CLEAR URINE VIA GRAVITY, PT WITH UPPER ARM MIDLINE ON BOTH ARMS. BOTH PATENT AND INTACT. WITH D5NS @ 70CC/HOUR RUNNING ORDERED WITHOUT COMPLICATIONS NOTED AT SITE. SAFETY MEASURES IN PLACE PER PROTOCOL, BED ALARM ON, SIDE RAILS UP X 2, BED LOCKED AND IN LOWEST POSITION, WILL MONITOR.
--- NOTE | 2020-07-11 20:17 | NUR ---
RECEIVED PT AWAKE ON ROOM AIR O2 SAT 96% NO RESP DISTRESS NOTED. PT IS RECEIVING Q4 BREATHING TX. CONTINUE TO MONITOR.
[2020-07-11] MEDS: GABAPENTIN 100 MG CAPSULE PO SCH (21:41)
[2020-07-11] MEDS: ATORVASTATIN 40 MG TABLET PO SCH (21:41)
[2020-07-12] VITALS: BP 120/72
[2020-07-12] MEDS: IV D5/ 0.9% NACL 1,000 ML IV PRN (00:04)
[2020-07-12] MEDS: ALBUTEROL HALF STRENGTH 1.25 MG/3 ML VIAL.NEB NEB SCH ×3 (01:17→14:22)
[2020-07-12] MEDS: IPRATROPIUM NEB FS 0.5 MG/2.5 ML AMPUL.NEB NEB SCH ×3 (01:17→14:22)
[2020-07-12 04:00] VITALS: BP 104/52
--- NOTE | 2020-07-12 04:00 | NUR ---
RN NOTE COMPLETE BED BATH/AM CARE COMPLETED. PT TOLERATED WELL.
[2020-07-12 06:28] LABS: BASOPHILS % (AUTO) 0.2 % (0.0-2.0); HEMATOCRIT 25 % (33-45); HEMOGLOBIN 8.3 g/dL (11.5-14.8); LYMPHOCYTES # (AUTO) 1.8 /CMM (0.8-4.8); LYMPHOCYTES % (AUTO) 25.6 % (20.0-44.0); MEAN CORPUSCULAR HGB CONC 33 g/dl (31.0-36.0); MEAN CORPUSCULAR VOLUME 89 fL (82-100); MONOCYTES # (AUTO) 0.7 /CMM (0.1-1.30); MONOCYTES % (AUTO) 9.9 % (2.0-12.0); NEUTROPHILS # (AUTO) 4.6 /CMM (1.8-8.9); NEUTROPHILS % (AUTO) 64.3 % (43.0-81.0); PLATELET COUNT (AUTO) 428 /CMM (150-450); RED BLOOD CELL COUNT(AUTO) 2.81 MIL/uL (4.0-5.2); WHITE BLOOD COUNT (AUTO) 7.1 K/uL (4.3-11.0)
--- NOTE | 2020-07-12 06:57 | NUR ---
RN NOTE NO ACUTE CHANGES OBSERVED OVERNIGHT. PT AWAKE WITH HEAD OF BED ELEVATED. CONFUSED AND ORIENTED X 1 (TO NAME ONLY). REORIENTED NEEDED. PT IS ON ROOM AIR, RESPIRATIONS UNLABORED, NO ADVENTITIOUS BREATH SOUNDS AUDIBLE. NSR ON THE ELECTRICAL INSTRUMENT TECHNICIAN. DENIES PAIN OR DISCOMFORT. WITH WAGGONER CATHETER PATENT AND IN PLACE DRAINING CLEAR URINE VIA GRAVITY, PT WITH UPPER ARM MIDLINE ON BOTH ARMS. BOTH PATENT AND INTACT. WITH D5NS @ 70CC/HOUR RUNNING ORDERED WITHOUT COMPLICATIONS NOTED AT SITE. SAFETY MEASURES IN PLACE PER PROTOCOL, BED ALARM ON, SIDE RAILS UP X 2, BED LOCKED AND IN LOWEST POSITION, WILL ENDORSE TO MORNING RN FOR ANNE.
--- NOTE | 2020-07-12 07:10 | NUR ---
RN NOTE RECEIVED PT ON BED, ALERT/ DOES NOT FOLLOW COMMAND, MUMBLING AT TIMES , ON RA, O2 SAT WNL, ON TELE SB HR IN 50'S , WAGGONER DRAINING TO GRAVITY, RIGHT AND LEFT UPPER ARM MIDLINE SITE CLEAN, DRY AND INTACT, D5NS @ 70CC RUNNING , SAFETY MEASURES IN PLACE PER PROTOCOL, SIDE RAILS UP X 3, CALL LIGHT WITHIN EASY REACH, BED LOCKED AND IN LOWEST POSITION, CONTINUE TO MONITOR.
[2020-07-12 07:16] LABS: CALCIUM, SERUM 7.3 mg/dL (8.5-10.1); CARBON DIOXIDE 28 mmol/L (21-32); CHLORIDE 113 mmol/L (98-107); CREATININE 0.9 mg/dL (0.6-1.3); GLUCOSE 121 mg/dL (74-106); MAGNESIUM 1.6 mg/dL (1.8-2.4); PHOSPHORUS 2.4 mg/dL (2.5-4.9); POTASSIUM 3.4 mmol/L (3.5-5.1); SODIUM SERUM 145 mmol/L (136-145); UREA NITROGEN, BLOOD 22 mg/dL (7-18)
[2020-07-12 08:00] VITALS: BP 113/91
[2020-07-12] MEDS: methylPREDNISolone SOD SUCC 40 MG/ML VIAL IV SCH (08:38)
[2020-07-12] MEDS: MULTIVITAMINS,THERAGRAN 1 UDTAB TABLET PO SCH (08:39)
[2020-07-12] MEDS: MEMANTINE HCL 5 MG TABLET PO SCH (08:39)
[2020-07-12] MEDS: ISOSORBIDE MONONITRATE (30MG) 30 MG TAB.SR.24H PO SCH (08:39)
[2020-07-12] MEDS: risperiDONE 0.25 MG TABLET PO SCH ×2 (08:39→12:20)
[2020-07-12] MEDS: METOPROLOL TARTRATE 25 MG TABLET PO SCH (08:40)
[2020-07-12] MEDS: BENZTROPINE MESYLATE (1 MG) 1 MG TABLET PO SCH (08:41)
[2020-07-12] MEDS: DIVALPROEX SODIUM 125 MG CAP.SPRINK PO SCH (08:41)
[2020-07-12] MEDS: hydrALAZINE HCL 50 MG TABLET PO SCH (08:41)
[2020-07-12] MEDS: FUROSEMIDE 20 MG/2 ML VIAL IV SCH (08:42)
[2020-07-12] MEDS: ENSURE ENLIVE 237 ML LIQUID (VANILLA) PO SCH (08:42)
[2020-07-12] MEDS: THERAHONEY GEL 1.5 OZ TUBE TP SCH (08:43)
[2020-07-12] MEDS: MEROPENEM 1 G in IV NS 0.9% 100 ML IV SCH (08:48)
[2020-07-12] MEDS: MUPIROCIN OINT 2% 22 GM TUBE NS SCH (08:50)
[2020-07-12] MEDS ORDERED: POTASSIUM CHLORIDE 20 MEQ TAB.PRT.SR PO ONE (09:30)
[2020-07-12] MEDS: Magnesium 1GM/D5W 100ML PREMIX 100 ML IV SCH ×2 (10:01→11:14)
[2020-07-12 12:00] VITALS: BP 113/91
[2020-07-12] MEDS ORDERED: NEUTRA PHOS 1 POWD.PACKET PO ONE (12:30)
--- NOTE | 2020-07-12 13:00 | NUR ---
RN NOTES REPORT GIVEN TO SANTIAGO AT [facility] FOR CONTINUITY OF CARE .
--- NOTE | 2020-07-12 16:00 | NUR ---
RN NOTES PT LEFT THE FLOOR TO SNF ACCOMPANIED BY EMT PERSONNEL IN STABLE CONDITION, NO BELONGINGS NOTED , L UPPER ARM MIDLINE D/LEONARDO, R UPPER ARM MIDLINE STAYS PER SNF REQUEST.
== END 2020-07-12 16:45 | DRG 853 ==
LOC: ER 02:33 → TELE1 04:37 → MEDSG1 16:48 → ICU 07-07 09:33 → TELE1 07-08 10:28 → ICU 07-09 07:57 → TELE-TD 07-11 14:02 → TELE1 07-12 09:31
PROVIDERS: ADMIT Nurse Practitioner Acute Care; ATTEND Internal Medicine
PROC: 0JBR0ZZ Excision of Left Foot Subcutaneous Tissue and Fascia, Open Approach (ICD-10-PCS; 2020-07-04)
PROC: 0JBQ0ZZ Excision of Right Foot Subcutaneous Tissue and Fascia, Open Approach (ICD-10-PCS; 2020-07-04)
PROC: 05HA33Z Insertion of Infusion Device into Left Brachial Vein, Percutaneous Approach (ICD-10-PCS; 2020-07-07)
PROC: 5A09357 Assistance with Respiratory Ventilation, Less than 24 Consecutive Hours, Continuous Positive Airway Pressure (ICD-10-PCS; principal; 2020-07-09)
PROC: 30233N1 Transfusion of Nonautologous Red Blood Cells into Peripheral Vein, Percutaneous Approach (ICD-10-PCS; 2020-07-10)
PROC: 05HA33Z Insertion of Infusion Device into Left Brachial Vein, Percutaneous Approach (ICD-10-PCS; 2020-07-10)
PROC: 0JBR0ZZ Excision of Left Foot Subcutaneous Tissue and Fascia, Open Approach (ICD-10-PCS; 2020-07-11)
PROC: 0JBQ0ZZ Excision of Right Foot Subcutaneous Tissue and Fascia, Open Approach (ICD-10-PCS; 2020-07-11)
DX: A41.89 Other specified sepsis (principal); L89.523 Pressure ulcer of left ankle, stage 3; J69.0 Pneumonitis due to inhalation of food and vomit; J96.02 Acute respiratory failure with hypercapnia; J96.01 Acute respiratory failure with hypoxia; I50.33 Acute on chronic diastolic (congestive) heart failure; G93.41 Metabolic encephalopathy; J15.6 Pneumonia due to other Gram-negative bacteria; L89.893 Pressure ulcer of other site, stage 3; E44.0 Moderate protein-calorie malnutrition; J44.0 Chronic obstructive pulmonary disease with (acute) lower respiratory infection; F03.91 Unspecified dementia, unspecified severity, with behavioral disturbance; F01.51 Vascular dementia, unspecified severity, with behavioral disturbance; E11.9 Type 2 diabetes mellitus without complications; I10 Essential (primary) hypertension; F25.9 Schizoaffective disorder, unspecified; F39 Unspecified mood [affective] disorder; Z20.822 Contact with and (suspected) exposure to COVID-19; E11.42 Type 2 diabetes mellitus with diabetic polyneuropathy; Z86.73 Personal history of transient ischemic attack (TIA), and cerebral infarction without residual deficits; Z87.891 Personal history of nicotine dependence; Z90.49 Acquired absence of other specified parts of digestive tract; Z88.0 Allergy status to penicillin; Z88.8 Allergy status to other drugs, medicaments and biological substances; Z86.16 Personal history of COVID-19; M19.90 Unspecified osteoarthritis, unspecified site; F41.9 Anxiety disorder, unspecified; E78.5 Hyperlipidemia, unspecified; I25.10 Atherosclerotic heart disease of native coronary artery without angina pectoris; I11.0 Hypertensive heart disease with heart failure; Z79.899 Other long term (current) drug therapy; M24.561 Contracture, right knee; M24.562 Contracture, left knee; F60.0 Paranoid personality disorder; D63.8 Anemia in other chronic diseases classified elsewhere; R13.10 Dysphagia, unspecified; E86.0 Dehydration; F09 Unspecified mental disorder due to known physiological condition; K21.9 Gastro-esophageal reflux disease without esophagitis; Y95 Nosocomial condition
CPT/HCPCS: 31720; 36410; 36415; 36600; 71045-TC; 80048-TC; 80053-TC; 80061-TC; 80076-TC; 80164-TC; 80202-TC; 82803-TC; 82962-TC; 83540-TC; 83605-TC; 83735-TC; 83880; 84100-TC; 84443-TC; 84484-TC; 85025-TC; 85730-TC; 86850-TC; 87040-TC; 87081-TC; 87086-TC; 92526; 92611-TC; 93307-TC; 93971-TC; 94660; 94760-TC; 94762-TC; 94799-TC; 99082-TC; A6403; C9803; G0378; J0696; J1650; J1940; J1956; J2185; J2920; J2930; J3370; J3475; J3490; J7030; J7042; J7050; J7060; J7120; P9016-BL; U0003

== ENCOUNTER 2024-02-22 06:02 | Inpatient (IN) | payer MEDICARE, OTHER ==
[~2024-02-22] VITALS: Ht 149.9 cm; Wt 38.6 kg
[2024-02-22] MEDS: IV NS 0.9% 1,000 ML BAG IV ONE (06:30)
[2024-02-22 06:56] LABS: BASOPHILS # (AUTO) 0.1 K/uL (0.0-0.2); BASOPHILS % (AUTO) 1.1 % (0.0-2.0); EOSINOPHILS # (AUTO) 0.3 K/uL (0.0-0.7); EOSINOPHILS % (AUTO) 4.1 % (0.0-6.0); HEMATOCRIT 30 % (33-45); HEMOGLOBIN 9.7 g/dL (11.5-14.8); LYMPHOCYTES # (AUTO) 3.9 K/uL (0.8-4.8); LYMPHOCYTES % (AUTO) 53.9 % (20.0-44.0); MEAN CORPUSCULAR HEMOGLOBIN 30 PG (26.0-33.0); MEAN CORPUSCULAR HGB CONC 33 g/dl (31.0-36.0); MEAN CORPUSCULAR VOLUME 93 fL (82-100); MONOCYTES # (AUTO) 0.6 K/uL (0.1-1.30); MONOCYTES % (AUTO) 8.4 % (2.0-12.0); NEUTROPHILS # (AUTO) 2.3 K/uL (1.8-8.9); NEUTROPHILS % (AUTO) 32.5 % (43.0-81.0); PLATELET COUNT (AUTO) 275 K/uL (150-450); RED CELL DISTRIBUTION WIDTH 14.8 % (11.5-15.0); WHITE BLOOD COUNT (AUTO) 7.2 K/uL (4.3-11.0)
[2024-02-22 07:00] LABS: CALCIUM, SERUM 8.3 mg/dL (8.5-10.1); CARBON DIOXIDE 27 mmol/L (21-32); CHLORIDE 108 mmol/L (98-107); GLUCOSE 97 mg/dL (74-106); POTASSIUM 5.4 mmol/L (3.5-5.1); SODIUM SERUM 138 mmol/L (136-145); UREA NITROGEN, BLOOD 44 mg/dL (7-18)
[2024-02-22 07:06] LABS: ALANINE AMINOTRANSFERASE 27 U/L (12-78); ALKALINE PHOSPHATASE 87 U/L (46-116); ASPARTATE AMINOTRANSFERASE 26 U/L (15-37); BILIRUBIN,DIRECT 0.1 mg/dL (0.0-0.2); BILIRUBIN,TOTAL 0.3 mg/dL (0.2-1.0); TOTAL PROTEIN, SERUM 7.1 g/dL (6.4-8.2)
[2024-02-22 07:11] LABS: INR 1.11 (0.91-1.10); PARTIAL THROMBOPLASTIN TIME 26.7 SEC (24.3-34.3); PROTHROMBIN TIME 11.7 SECS (9.2-11.1)
[2024-02-22 07:12] LABS: LACTIC ACID 1.6 mmol/L (0.4-2.0)
[2024-02-22] MEDS ORDERED: HYDR-4077 PO (07:40)
[2024-02-22] MEDS ORDERED: MELO-107 PO (07:40)
[2024-02-22] MEDS ORDERED: SPIR50TA5 PO (07:40)
[2024-02-22] MEDS ORDERED: ACET-2030 PO (07:40)
[2024-02-22] MEDS ORDERED: DEXT38GE12 PO (07:40)
[2024-02-22] MEDS ORDERED: SERT25TA PO (07:40)
[2024-02-22] MEDS ORDERED: IVER3TAB2 PO (07:40)
[2024-02-22] MEDS ORDERED: ASPI-1169 PO (07:40)
[2024-02-22] MEDS ORDERED: ISOS60TA72 PO (07:40)
[2024-02-22] MEDS ORDERED: GLUC1KIT IM (07:40)
[2024-02-22] MEDS ORDERED: LOSA100T31 PO (07:40)
[2024-02-22] MEDS ORDERED: HYDR12.55 PO (07:40)
[2024-02-22] MEDS ORDERED: IOHEXOL-350 100 ML VIAL IV ONE (07:54)
[2024-02-22] MEDS ORDERED: CT SWABBABLE VALVE TRANS SET 1 EA INFUS.SET MC ONE (07:54)
[2024-02-22] MEDS ORDERED: IV NS 0.9% 250 ML IV ONE (07:55)
[2024-02-22] MEDS ORDERED: ZOLPIDEM TARTRATE 5 MG TABLET PO PRN (08:30)
[2024-02-22] MEDS ORDERED: Z GUARD REMEDY 4 OZ OINT TP PRN (08:30)
[2024-02-22] MEDS ORDERED: ONDANSETRON HCL/PF 4 MG/2 ML VIAL IVP PRN (08:30)
[2024-02-22] MEDS ORDERED: MAG HYDROX/AL HYDROX/SIMETH 30 ML UDC PO PRN (08:30)
[2024-02-22] MEDS ORDERED: MAGNESIUM HYDROXIDE 30 ML UDC PO PRN (08:30)
[2024-02-22] MEDS ORDERED: ACETAMINOPHEN 325 MG TABLET PO PRN ×2 (08:30→19:00)
[2024-02-22 09:30] VITALS: BP 111/72; TEMP 97.5; O2SAT 100
[2024-02-22] MEDS: PANTOPRAZOLE 40 MG VIAL IV SCH (10:29)
[2024-02-22] MEDS: IV D5W 1,000 ML IV PRN (11:44)
[2024-02-22 12:00] VITALS: BP 129/87; TEMP 98.3; O2SAT 100
[2024-02-22 14:27] LABS: BASOPHILS % (AUTO) 0.5 % (0.0-2.0); EOSINOPHILS % (AUTO) 0.5 % (0.0-6.0); HEMATOCRIT 23 % (33-45); HEMOGLOBIN 7.7 g/dL (11.5-14.8); LYMPHOCYTES # (AUTO) 1.4 K/uL (0.8-4.8); LYMPHOCYTES % (AUTO) 23.1 % (20.0-44.0); MEAN CORPUSCULAR HEMOGLOBIN 31 PG (26.0-33.0); MEAN CORPUSCULAR HGB CONC 33 g/dl (31.0-36.0); MEAN CORPUSCULAR VOLUME 93 fL (82-100); MONOCYTES # (AUTO) 0.4 K/uL (0.1-1.30); MONOCYTES % (AUTO) 6.7 % (2.0-12.0); NEUTROPHILS # (AUTO) 4.2 K/uL (1.8-8.9); NEUTROPHILS % (AUTO) 69.2 % (43.0-81.0); PLATELET COUNT (AUTO) 217 K/uL (150-450); RED BLOOD CELL COUNT(AUTO) 2.51 MIL/uL (4.0-5.2); RED CELL DISTRIBUTION WIDTH 14.8 % (11.5-15.0)
[2024-02-22 16:00] VITALS: BP 127/80; TEMP 98.4; O2SAT 100
[2024-02-22] MEDS ORDERED: ACETAMINOPHEN ES 500 MG TABLET PO PRN (19:00)
[2024-02-22] MEDS ORDERED: IV 1/2NS 1000 ML 1,000 ML IV SCH (19:00)
[2024-02-22] MEDS ORDERED: DEXTROSE 50%-WATER 50 ML DISP.SYRIN IV PRN (19:00)
[2024-02-22 20:00] VITALS: BP 181/95; TEMP 97.3; O2SAT 97
[2024-02-22] MEDS: BLOOD SUGAR DIAGNOSTIC 1 EACH STRIP IN SCH (21:32)
[2024-02-22] MEDS ORDERED: GLUCAGON,HUMAN RECOMBINANT 1 MG/VIAL VIAL IM PRN (22:00)
[2024-02-22] MEDS: hydrALAZINE HCL IV 20 MG VIAL IV ONE (22:00)
[2024-02-22] MEDS: ATORVASTATIN 40 MG TABLET PO SCH (22:05)
[2024-02-22] MEDS: GABAPENTIN 100 MG CAPSULE PO SCH (22:05)
[2024-02-23] VITALS (15 sets, daily range): BP systolic 104–168; BP diastolic 60–100; TEMP 97–98.1; O2SAT 92–99
[2024-02-23] MEDS: INSULIN REGULAR, HUMAN 100 UNIT/ML 3 ML VIAL SQ PRN (01:21)
[2024-02-23 08:04] LABS: BASOPHILS # (AUTO) 0.1 K/uL (0.0-0.2); BASOPHILS % (AUTO) 1.2 % (0.0-2.0); EOSINOPHILS # (AUTO) 0.1 K/uL (0.0-0.7); EOSINOPHILS % (AUTO) 1.4 % (0.0-6.0); LYMPHOCYTES # (AUTO) 2.4 K/uL (0.8-4.8); LYMPHOCYTES % (AUTO) 42.2 % (20.0-44.0); MEAN CORPUSCULAR HEMOGLOBIN 31 PG (26.0-33.0); MEAN CORPUSCULAR HGB CONC 34 g/dl (31.0-36.0); MEAN CORPUSCULAR VOLUME 92 fL (82-100); MONOCYTES # (AUTO) 0.4 K/uL (0.1-1.30); MONOCYTES % (AUTO) 7.6 % (2.0-12.0); NEUTROPHILS # (AUTO) 2.7 K/uL (1.8-8.9); NEUTROPHILS % (AUTO) 47.6 % (43.0-81.0); PLATELET COUNT (AUTO) 184 K/uL (150-450); RED CELL DISTRIBUTION WIDTH 14.2 % (11.5-15.0); WHITE BLOOD COUNT (AUTO) 5.7 K/uL (4.3-11.0)
[2024-02-23 08:11] LABS: CALCIUM, SERUM 7.6 mg/dL (8.5-10.1); CARBON DIOXIDE 24 mmol/L (21-32); CHLORIDE 102 mmol/L (98-107); GLUCOSE 129 mg/dL (74-106); MAGNESIUM 1.8 mg/dL (1.8-2.4); POTASSIUM 4.1 mmol/L (3.5-5.1); SODIUM SERUM 132 mmol/L (136-145); UREA NITROGEN, BLOOD 41 mg/dL (7-18)
[2024-02-23 08:40] LABS: RED BLOOD CELL COUNT(AUTO) 1.99 MIL/uL (4.0-5.2)
[2024-02-23] MEDS: IV D5/0.45 NACL 1,000 ML IV ONE (09:17)
[2024-02-23] MEDS: IVERMECTIN 3 MG TABLET PO SCH (09:18)
[2024-02-23] MEDS: hydrALAZINE HCL 50 MG TABLET PO SCH (09:18)
[2024-02-23] MEDS: SERTRALINE HCL 25 MG TABLET PO SCH (09:18)
[2024-02-23 09:32] LABS: HEMATOCRIT 18 % (33-45); HEMOGLOBIN 6.2 g/dL (11.5-14.8)
[2024-02-23 10:56] LABS: EOSINOPHILS % (MANUAL) 1 % (0-4); LYMPHOCYTES % (MANUAL) 39 % (16-48); MONOCYTES % (MANUAL) 5 % (0-11.0); NEUTROPHILS % (MANUAL) 55 (42-76)
[2024-02-23 10:57] LABS: ANISOCYTOSIS 1+; OVALOCYTES 1+; PLATELET ESTIMATE ADEQUATE
[2024-02-23] MEDS: NITROGLYCERIN PACKET 1 GM PACKET TOP SCH (13:03)
[2024-02-23] MEDS: ISOSORBIDE MONONITRATE (30MG) 30 MG TAB.SR.24H PO SCH (17:07)
[2024-02-23 17:24] LABS: HEMOGLOBIN 8.4 g/dL (11.5-14.8)
[2024-02-24] VITALS (8 sets, daily range): BP systolic 111–155; BP diastolic 67–95; TEMP 97.1–97.7; O2SAT 97–100
[2024-02-24 10:23] LABS: BASOPHILS % (AUTO) 0.4 % (0.0-2.0); EOSINOPHILS # (AUTO) 0.1 K/uL (0.0-0.7); EOSINOPHILS % (AUTO) 1.3 % (0.0-6.0); HEMATOCRIT 23 % (33-45); HEMOGLOBIN 7.5 g/dL (11.5-14.8); MEAN CORPUSCULAR HEMOGLOBIN 31 PG (26.0-33.0); MEAN CORPUSCULAR HGB CONC 33 g/dl (31.0-36.0); MEAN CORPUSCULAR VOLUME 94 fL (82-100); MONOCYTES # (AUTO) 0.8 K/uL (0.1-1.30); MONOCYTES % (AUTO) 8.9 % (2.0-12.0); NEUTROPHILS # (AUTO) 5.7 K/uL (1.8-8.9); NEUTROPHILS % (AUTO) 66.4 % (43.0-81.0); PLATELET COUNT (AUTO) 167 K/uL (150-450); RED BLOOD CELL COUNT(AUTO) 2.43 MIL/uL (4.0-5.2); RED CELL DISTRIBUTION WIDTH 14.5 % (11.5-15.0); WHITE BLOOD COUNT (AUTO) 8.6 K/uL (4.3-11.0)
[2024-02-24 10:46] LABS: CALCIUM, SERUM 7.8 mg/dL (8.5-10.1); CARBON DIOXIDE 26 mmol/L (21-32); CHLORIDE 108 mmol/L (98-107); CREATININE 0.9 mg/dL (0.6-1.3); GLUCOSE 99 mg/dL (74-106); MAGNESIUM 1.9 mg/dL (1.8-2.4); PHOSPHORUS 2.9 mg/dL (2.5-4.9); POTASSIUM 3.7 mmol/L (3.5-5.1); SODIUM SERUM 140 mmol/L (136-145); UREA NITROGEN, BLOOD 29 mg/dL (7-18)
[2024-02-24] MEDS: PEG 3350/NA SULF,BICARB,CL/KCL 4,000 ML BOTTLE PO ONE (20:16)
[2024-02-25] VITALS (9 sets, daily range): BP systolic 110–162; BP diastolic 64–91; TEMP 97.4–98.3; O2SAT 100
[2024-02-25 07:45] LABS: BASOPHILS % (AUTO) 0.6 % (0.0-2.0); EOSINOPHILS # (AUTO) 0.1 K/uL (0.0-0.7); EOSINOPHILS % (AUTO) 2.1 % (0.0-6.0); HEMATOCRIT 22 % (33-45); HEMOGLOBIN 7.3 g/dL (11.5-14.8); LYMPHOCYTES % (AUTO) 30.8 % (20.0-44.0); MEAN CORPUSCULAR HEMOGLOBIN 31 PG (26.0-33.0); MEAN CORPUSCULAR HGB CONC 34 g/dl (31.0-36.0); MEAN CORPUSCULAR VOLUME 90 fL (82-100); MONOCYTES # (AUTO) 0.5 K/uL (0.1-1.30); MONOCYTES % (AUTO) 8.2 % (2.0-12.0); NEUTROPHILS # (AUTO) 3.7 K/uL (1.8-8.9); NEUTROPHILS % (AUTO) 58.3 % (43.0-81.0); PLATELET COUNT (AUTO) 152 K/uL (150-450); RED CELL DISTRIBUTION WIDTH 14.8 % (11.5-15.0); WHITE BLOOD COUNT (AUTO) 6.4 K/uL (4.3-11.0)
[2024-02-25 07:59] LABS: CALCIUM, SERUM 7.8 mg/dL (8.5-10.1); CARBON DIOXIDE 23 mmol/L (21-32); CHLORIDE 108 mmol/L (98-107); CREATININE 0.9 mg/dL (0.6-1.3); GLUCOSE 85 mg/dL (74-106); MAGNESIUM 1.9 mg/dL (1.8-2.4); POTASSIUM 3.3 mmol/L (3.5-5.1); SODIUM SERUM 141 mmol/L (136-145); UREA NITROGEN, BLOOD 37 mg/dL (7-18)
[2024-02-25] MEDS: POTASSIUM CHLORIDE 20 MEQ TAB.PRT.SR PO SCH (08:32)
[2024-02-25] MEDS: PANTOPRAZOLE 40 MG TABLET.DR PO SCH (08:32)
[2024-02-25] MEDS: ENSURE CLEAR 237 ML LIQUID (MIX BERRY) PO SCH (11:17)
[2024-02-25] MEDS: METOPROLOL TARTRATE 50 MG TABLET PO SCH (11:21)
[2024-02-25] MEDS: MAGNESIUM CITRATE 296 ML BOTTLE PO ONE (16:23)
[2024-02-25 18:28] LABS: HEMOGLOBIN 8.5 g/dL (11.5-14.8)
[2024-02-26 00:42] LABS: HEMOGLOBIN 7.9 g/dL (11.5-14.8)
[2024-02-26] MEDS: IV D5/0.45 NACL 1,000 ML IV SCH (05:36)
[2024-02-26 05:57] VITALS: BP 137/71; TEMP 97.4; O2SAT 100
[2024-02-26 07:50] LABS: BASOPHILS % (AUTO) 0.5 % (0.0-2.0); EOSINOPHILS # (AUTO) 0.2 K/uL (0.0-0.7); EOSINOPHILS % (AUTO) 2.8 % (0.0-6.0); HEMATOCRIT 25 % (33-45); HEMOGLOBIN 8.4 g/dL (11.5-14.8); LYMPHOCYTES # (AUTO) 2.3 K/uL (0.8-4.8); LYMPHOCYTES % (AUTO) 30.9 % (20.0-44.0); MEAN CORPUSCULAR HEMOGLOBIN 30 PG (26.0-33.0); MEAN CORPUSCULAR HGB CONC 34 g/dl (31.0-36.0); MEAN CORPUSCULAR VOLUME 90 fL (82-100); MONOCYTES # (AUTO) 0.6 K/uL (0.1-1.30); MONOCYTES % (AUTO) 7.8 % (2.0-12.0); NEUTROPHILS # (AUTO) 4.2 K/uL (1.8-8.9); PLATELET COUNT (AUTO) 169 K/uL (150-450); RED BLOOD CELL COUNT(AUTO) 2.79 MIL/uL (4.0-5.2); RED CELL DISTRIBUTION WIDTH 15.1 % (11.5-15.0); WHITE BLOOD COUNT (AUTO) 7.3 K/uL (4.3-11.0)
[2024-02-26 08:00] VITALS: BP 124/99; TEMP 97.5; O2SAT 96
[2024-02-26 08:07] LABS: CALCIUM, SERUM 7.5 mg/dL (8.5-10.1); CARBON DIOXIDE 22 mmol/L (21-32); CHLORIDE 109 mmol/L (98-107); CREATININE 0.8 mg/dL (0.6-1.3); GLUCOSE 129 mg/dL (74-106); POTASSIUM 3.3 mmol/L (3.5-5.1); SODIUM SERUM 139 mmol/L (136-145); UREA NITROGEN, BLOOD 24 mg/dL (7-18)
[2024-02-26 08:28] LABS: IRON, SERUM 62 ug/dl (50-175); TOTAL IRON BINDING CAPACITY 212 ug/dl (250-450)
[2024-02-26 09:34] LABS: FERRITIN 291 ng/mL (8-388)
[2024-02-26] MEDS: METOPROLOL TARTRATE 50 MG TABLET PO SCH (09:55)
[2024-02-26] MEDS: THERAHONEY GEL 1.5 OZ TUBE TP SCH (09:57)
[2024-02-26] MEDS ORDERED: POTASSIUM CHLORIDE 20 MEQ TAB.PRT.SR PO ONE (11:00)
[2024-02-26] MEDS: POTASSIUM CL. PREMIX PERIPHER. 50 ML IV SCH (11:11)
[2024-02-26] MEDS ORDERED: ANESTHESIA TRAY IN PYXIS 1 EA TRAY MC ONE (15:07)
[2024-02-26 16:00] VITALS: BP 184/80; TEMP 97.9; O2SAT 95
[2024-02-26] MEDS: hydrALAZINE HCL IV 20 MG VIAL IV STA (16:46)
[2024-02-26] MEDS: NITROGLYCERIN 30 GM TUBE TP STA (16:53)
[2024-02-26 17:00] VITALS: BP 140/84; TEMP 97.9; O2SAT 96
[2024-02-26 20:00] VITALS: BP 145/85; TEMP 98; O2SAT 100
[2024-02-27 04:00] VITALS: BP 134/62; TEMP 97.8; O2SAT 96
[2024-02-27 08:00] VITALS: BP 126/76; TEMP 97.5; O2SAT 100
[2024-02-27 08:04] LABS: CALCIUM, SERUM 7.8 mg/dL (8.5-10.1); CARBON DIOXIDE 24 mmol/L (21-32); CHLORIDE 111 mmol/L (98-107); CREATININE 0.9 mg/dL (0.6-1.3); GLUCOSE 91 mg/dL (74-106); POTASSIUM 3.2 mmol/L (3.5-5.1); SODIUM SERUM 140 mmol/L (136-145); UREA NITROGEN, BLOOD 17 mg/dL (7-18)
[2024-02-27 08:47] LABS: BASOPHILS % (AUTO) 0.8 % (0.0-2.0); EOSINOPHILS # (AUTO) 0.2 K/uL (0.0-0.7); HEMATOCRIT 24 % (33-45); HEMOGLOBIN 8.1 g/dL (11.5-14.8); LYMPHOCYTES # (AUTO) 2.5 K/uL (0.8-4.8); LYMPHOCYTES % (AUTO) 41.1 % (20.0-44.0); MEAN CORPUSCULAR HEMOGLOBIN 31 PG (26.0-33.0); MEAN CORPUSCULAR HGB CONC 34 g/dl (31.0-36.0); MEAN CORPUSCULAR VOLUME 91 fL (82-100); MONOCYTES # (AUTO) 0.4 K/uL (0.1-1.30); MONOCYTES % (AUTO) 7.4 % (2.0-12.0); NEUTROPHILS # (AUTO) 2.8 K/uL (1.8-8.9); NEUTROPHILS % (AUTO) 46.7 % (43.0-81.0); PLATELET COUNT (AUTO) 189 K/uL (150-450); RED BLOOD CELL COUNT(AUTO) 2.63 MIL/uL (4.0-5.2); RED CELL DISTRIBUTION WIDTH 15.3 % (11.5-15.0)
[2024-02-27] MEDS: POTASSIUM CHLORIDE 20 MEQ TAB.PRT.SR PO SCH ×2 (10:02→11:06)
[2024-02-27 16:00] VITALS: BP 144/79; TEMP 98; O2SAT 100
[2024-02-27 20:00] VITALS: BP 136/61; TEMP 96.6; O2SAT 92
[2024-02-28 04:00] VITALS: BP 164/76; TEMP 97.3; O2SAT 90
[2024-02-28 07:16] LABS: BASOPHILS % (AUTO) 0.3 % (0.0-2.0); EOSINOPHILS # (AUTO) 0.1 K/uL (0.0-0.7); EOSINOPHILS % (AUTO) 1.7 % (0.0-6.0); HEMATOCRIT 23 % (33-45); HEMOGLOBIN 7.8 g/dL (11.5-14.8); LYMPHOCYTES # (AUTO) 1.6 K/uL (0.8-4.8); LYMPHOCYTES % (AUTO) 21.9 % (20.0-44.0); MEAN CORPUSCULAR HEMOGLOBIN 31 PG (26.0-33.0); MEAN CORPUSCULAR HGB CONC 34 g/dl (31.0-36.0); MEAN CORPUSCULAR VOLUME 92 fL (82-100); MONOCYTES # (AUTO) 0.4 K/uL (0.1-1.30); MONOCYTES % (AUTO) 5.6 % (2.0-12.0); NEUTROPHILS # (AUTO) 5.1 K/uL (1.8-8.9); NEUTROPHILS % (AUTO) 70.5 % (43.0-81.0); PLATELET COUNT (AUTO) 186 K/uL (150-450); RED BLOOD CELL COUNT(AUTO) 2.49 MIL/uL (4.0-5.2); RED CELL DISTRIBUTION WIDTH 15.1 % (11.5-15.0); WHITE BLOOD COUNT (AUTO) 7.2 K/uL (4.3-11.0)
[2024-02-28 07:23] LABS: CALCIUM, SERUM 7.5 mg/dL (8.5-10.1); CARBON DIOXIDE 23 mmol/L (21-32); CHLORIDE 110 mmol/L (98-107); CREATININE 0.9 mg/dL (0.6-1.3); GLUCOSE 123 mg/dL (74-106); POTASSIUM 4.4 mmol/L (3.5-5.1); SODIUM SERUM 137 mmol/L (136-145); UREA NITROGEN, BLOOD 13 mg/dL (7-18)
[2024-02-28 08:11] VITALS: BP 151/63; TEMP 98.1; O2SAT 99
[2024-02-28] MEDS: hydrALAZINE HCL 50 MG TABLET PO SCH (13:37)
[2024-02-28] MEDS: SOD FERRIC GLUC 125 MG in IV NS 0.9% 100 ML IV SCH (14:43)
[2024-02-28 16:00] VITALS: BP 155/72; O2SAT 100
[2024-02-28 20:00] VITALS: BP 143/68; TEMP 96.8; O2SAT 100
[2024-02-29 04:00] VITALS: BP 157/83; TEMP 96.8; O2SAT 98
[2024-02-29 07:19] LABS: BASOPHILS % (AUTO) 0.4 % (0.0-2.0); EOSINOPHILS # (AUTO) 0.2 K/uL (0.0-0.7); EOSINOPHILS % (AUTO) 2.8 % (0.0-6.0); HEMATOCRIT 22 % (33-45); HEMOGLOBIN 7.3 g/dL (11.5-14.8); LYMPHOCYTES # (AUTO) 1.6 K/uL (0.8-4.8); LYMPHOCYTES % (AUTO) 21.5 % (20.0-44.0); MEAN CORPUSCULAR HEMOGLOBIN 31 PG (26.0-33.0); MEAN CORPUSCULAR HGB CONC 34 g/dl (31.0-36.0); MEAN CORPUSCULAR VOLUME 92 fL (82-100); MONOCYTES # (AUTO) 0.4 K/uL (0.1-1.30); MONOCYTES % (AUTO) 5.9 % (2.0-12.0); NEUTROPHILS # (AUTO) 5.3 K/uL (1.8-8.9); NEUTROPHILS % (AUTO) 69.4 % (43.0-81.0); PLATELET COUNT (AUTO) 181 K/uL (150-450); RED BLOOD CELL COUNT(AUTO) 2.36 MIL/uL (4.0-5.2); RED CELL DISTRIBUTION WIDTH 15.3 % (11.5-15.0); WHITE BLOOD COUNT (AUTO) 7.6 K/uL (4.3-11.0)
[2024-02-29 07:37] LABS: CALCIUM, SERUM 7.7 mg/dL (8.5-10.1); CARBON DIOXIDE 23 mmol/L (21-32); CHLORIDE 105 mmol/L (98-107); CREATININE 0.7 mg/dL (0.6-1.3); GLUCOSE 82 mg/dL (74-106); POTASSIUM 3.6 mmol/L (3.5-5.1); SODIUM SERUM 134 mmol/L (136-145); UREA NITROGEN, BLOOD 10 mg/dL (7-18)
[2024-02-29 08:00] VITALS: BP 121/62; TEMP 97.9; O2SAT 100
[2024-02-29] MEDS ORDERED: DEXTROSE 50%-WATER 50 ML DISP.SYRIN IV PRN (12:00)
[2024-02-29] MEDS: ENSURE ENLIVE CHOC 237 ML CAN PO SCH (12:29)
[2024-02-29] MEDS: BLOOD SUGAR DIAGNOSTIC 1 EACH STRIP IN SCH (12:29)
[2024-02-29 15:24] LABS: HEMOGLOBIN 8.3 g/dL (11.5-14.8)
[2024-02-29 16:00] VITALS: BP 117/97; TEMP 98.5; O2SAT 97
[2024-02-29 20:00] VITALS: BP 139/94; TEMP 98.4; O2SAT 97
[2024-02-29] MEDS: INSULIN REGULAR, HUMAN 100 UNIT/ML 3 ML VIAL SQ PRN (21:15)
[2024-03-01 04:00] VITALS: BP 136/69; TEMP 97.7; O2SAT 97
[2024-03-01 08:00] VITALS: BP 133/75; TEMP 98.1; O2SAT 94
[2024-03-01 08:12] LABS: BASOPHILS % (AUTO) 0.3 % (0.0-2.0); EOSINOPHILS # (AUTO) 0.1 K/uL (0.0-0.7); EOSINOPHILS % (AUTO) 0.7 % (0.0-6.0); HEMATOCRIT 22 % (33-45); HEMOGLOBIN 7.6 g/dL (11.5-14.8); LYMPHOCYTES # (AUTO) 2.1 K/uL (0.8-4.8); LYMPHOCYTES % (AUTO) 24.7 % (20.0-44.0); MEAN CORPUSCULAR HEMOGLOBIN 31 PG (26.0-33.0); MEAN CORPUSCULAR HGB CONC 34 g/dl (31.0-36.0); MEAN CORPUSCULAR VOLUME 92 fL (82-100); MONOCYTES # (AUTO) 0.4 K/uL (0.1-1.30); MONOCYTES % (AUTO) 4.9 % (2.0-12.0); NEUTROPHILS # (AUTO) 5.9 K/uL (1.8-8.9); NEUTROPHILS % (AUTO) 69.4 % (43.0-81.0); PLATELET COUNT (AUTO) 211 K/uL (150-450); RED BLOOD CELL COUNT(AUTO) 2.43 MIL/uL (4.0-5.2); WHITE BLOOD COUNT (AUTO) 8.6 K/uL (4.3-11.0)
[2024-03-01 08:21] LABS: CALCIUM, SERUM 7.7 mg/dL (8.5-10.1); CARBON DIOXIDE 25 mmol/L (21-32); CHLORIDE 110 mmol/L (98-107); CREATININE 0.9 mg/dL (0.6-1.3); GLUCOSE 80 mg/dL (74-106); POTASSIUM 3.9 mmol/L (3.5-5.1); SODIUM SERUM 141 mmol/L (136-145); UREA NITROGEN, BLOOD 11 mg/dL (7-18)
[2024-03-01] MEDS ORDERED: METO50TA16 PO (12:04)
[2024-03-01] MEDS ORDERED: PANT40TA49 PO (12:04)
[2024-03-01] MEDS ORDERED: COLL30OI TP (12:04)
[2024-03-01] MEDS ORDERED: LACT-54 PO (12:04)
[2024-03-01 12:17] VITALS: BP 125/92
== END 2024-03-01 13:47 | DRG 377 ==
LOC: ER 06:07 → TELE1 08:25 → MEDSG1 02-24 09:59
PROVIDERS: ADMIT Student in an Organized Health Care Education/Training Program; ATTEND Nurse Practitioner Acute Care
PROC: 30233N1 Transfusion of Nonautologous Red Blood Cells into Peripheral Vein, Percutaneous Approach (ICD-10-PCS; principal; 2024-02-23)
PROC: 0DJD8ZZ Inspection of Lower Intestinal Tract, Via Natural or Artificial Opening Endoscopic (ICD-10-PCS; 2024-02-26)
DX: K57.31 Diverticulosis of large intestine without perforation or abscess with bleeding (principal); E43 Unspecified severe protein-calorie malnutrition; G93.41 Metabolic encephalopathy; D62 Acute posthemorrhagic anemia; E87.1 Hypo-osmolality and hyponatremia; F03.92 Unspecified dementia, unspecified severity, with psychotic disturbance; N17.9 Acute kidney failure, unspecified; R64 Cachexia; K64.8 Other hemorrhoids; E11.9 Type 2 diabetes mellitus without complications; E78.5 Hyperlipidemia, unspecified; E86.0 Dehydration; E86.1 Hypovolemia; E87.5 Hyperkalemia; E88.09 Other disorders of plasma-protein metabolism, not elsewhere classified; I10 Essential (primary) hypertension; I25.10 Atherosclerotic heart disease of native coronary artery without angina pectoris; J44.9 Chronic obstructive pulmonary disease, unspecified; Z79.82 Long term (current) use of aspirin; Z86.73 Personal history of transient ischemic attack (TIA), and cerebral infarction without residual deficits; Z88.0 Allergy status to penicillin; Z87.891 Personal history of nicotine dependence; F20.9 Schizophrenia, unspecified; I71.40 Abdominal aortic aneurysm, without rupture, unspecified
CPT/HCPCS: 36415; 80048-TC; 80076-TC; 82728-TC; 82962-TC; 83540-TC; 83605-TC; 83735-TC; 84100-TC; 84484-TC; 85025-TC; 85027-TC; 85730-TC; 86850-TC; 87040-TC; 87081-TC; 92526; 92611-TC; 94799-TC; A4217; A4223; G0378; J0360; J1815; J2470; J2704; J2916; J3480; J3490; J7030; J7040; J7050; J7070; P9016; Q9967

== ENCOUNTER 2024-07-21 07:50 | Inpatient (IN) | payer MEDICARE, OTHER ==
[~2024-07-21] VITALS: Ht 157.5 cm; Wt 35.0 kg
[~2024-07-21 07:50] MED LIST changes: +ACET-2030 PO; +ASPI-1169 PO; -BENZ0.5T43 PO; -CLON1PAT TD; +COLL30OI TP; +DEXT38GE12 PO; -DIVA125C2 PO; +GLUC1KIT IM; +HYDR-4077 PO; -HYDR100T27 PO; +HYDR12.55 PO; -ISOS30TA86 PO; +ISOS60TA72 PO; +LACT-54 PO; -LEVO500T23 PO; +LOSA100T31 PO; -MAGN400O6 PO; -MEMA10TA PO; -METO25TA20 PO; +METO50TA16 PO; -NA P133E RC; +PANT40TA49 PO; -RISP0.2515 PO; +SERT25TA PO; +SPIR50TA5 PO; -TEMA15CA5 PO
[2024-07-21] MEDS: IV NS 0.9% 500 ML BAG IV ONE (08:22)
[2024-07-21 08:28] LABS: BASOPHILS # (AUTO) 0.1 K/uL (0.0-0.2); BASOPHILS % (AUTO) 0.9 % (0.0-2.0); EOSINOPHILS # (AUTO) 0.5 K/uL (0.0-0.7); EOSINOPHILS % (AUTO) 7.8 % (0.0-6.0); HEMATOCRIT 34 % (33-45); HEMOGLOBIN 11.2 g/dL (11.5-14.8); LYMPHOCYTES # (AUTO) 2.3 K/uL (0.8-4.8); LYMPHOCYTES % (AUTO) 39.2 % (20.0-44.0); MEAN CORPUSCULAR HEMOGLOBIN 30 PG (26.0-33.0); MEAN CORPUSCULAR HGB CONC 33 g/dl (31.0-36.0); MEAN CORPUSCULAR VOLUME 92 fL (82-100); MONOCYTES # (AUTO) 0.7 K/uL (0.1-1.30); MONOCYTES % (AUTO) 12.4 % (2.0-12.0); NEUTROPHILS # (AUTO) 2.4 K/uL (1.8-8.9); NEUTROPHILS % (AUTO) 39.7 % (43.0-81.0); PLATELET COUNT (AUTO) 191 K/uL (150-450); RED BLOOD CELL COUNT(AUTO) 3.76 MIL/uL (4.0-5.2); RED CELL DISTRIBUTION WIDTH 15.9 % (11.5-15.0); WHITE BLOOD COUNT (AUTO) 5.9 K/uL (4.3-11.0)
[2024-07-21] MEDS ORDERED: ACET325T53 PO (08:58)
[2024-07-21] MEDS ORDERED: MAGN400O6 PO (08:58)
[2024-07-21] MEDS ORDERED: AMIN30LI66 PO (08:58)
[2024-07-21] MEDS ORDERED: MAG30ORA PO (08:58)
[2024-07-21] MEDS ORDERED: NA P133E RC (08:58)
[2024-07-21] MEDS ORDERED: CRAN300T PO (08:58)
[2024-07-21 09:07] LABS: CALCIUM, SERUM 8.2 mg/dL (8.5-10.1); CREATININE 1.4 mg/dL (0.6-1.3); POTASSIUM 5.6 mmol/L (3.5-5.1)
[2024-07-21] MEDS ORDERED: SODIUM ZIRCONIUM CYCLOSILICATE 10 GM POWD.PACK ONE ×2 (09:58→10:04)
[2024-07-21] MEDS: SODIUM ZIRCONIUM CYCLOSILICATE 10 GM POWD.PACK PO ONE (10:11)
[2024-07-21 13:00] VITALS: BP 102/78; TEMP 98.1; O2SAT 95
[2024-07-21] MEDS ORDERED: MAG HYDROX/AL HYDROX/SIMETH 30 ML UDC PO PRN ×2 (13:30)
[2024-07-21] MEDS ORDERED: MAGNESIUM HYDROXIDE 30 ML UDC PO PRN ×2 (13:30)
[2024-07-21] MEDS ORDERED: Z GUARD REMEDY 4 OZ OINT TP PRN (13:30)
[2024-07-21] MEDS ORDERED: ACETAMINOPHEN 325 MG TABLET PO PRN ×2 (13:30)
[2024-07-21] MEDS ORDERED: ACETAMINOPHEN ES 500 MG TABLET PO PRN (13:30)
[2024-07-21] MEDS ORDERED: ONDANSETRON HCL/PF 4 MG/2 ML VIAL IVP PRN (13:30)
[2024-07-21] MEDS ORDERED: NA PHOS,M-B/NA PHOS,DI-BA 1 EA ENEMA RC PRN (13:30)
[2024-07-21] MEDS ORDERED: GLUCAGON,HUMAN RECOMBINANT 1 MG/VIAL VIAL IM PRN (14:00)
[2024-07-21] MEDS: ENOXAPARIN SODIUM 30 MG/0.3 ML DISP.SYRIN SQ SCH (14:24)
[2024-07-21] MEDS ORDERED: GLUTOSE 15 G GEL..GM. PO PRN (15:00)
[2024-07-21 16:06] VITALS: BP 120/94; TEMP 97.7; O2SAT 92
[2024-07-21] MEDS: IV NS 0.9% 1,000 ML IV PRN (16:20)
[2024-07-21] MEDS: hydrALAZINE HCL 50 MG TABLET PO SCH (16:42)
[2024-07-21] MEDS: PROSOURCE / PROSTAT (PYXIS) 30 ML UDC PO SCH (17:15)
[2024-07-21] MEDS: ISOSORBIDE MONONITRATE (30MG) 30 MG TAB.SR.24H PO SCH (18:00)
[2024-07-21] MEDS ORDERED: ISOSORBIDE MONONITRATE (30MG) 30 MG TAB.SR.24H PO SCH (18:30)
[2024-07-21] MEDS: ISOSORBIDE DINITRATE (20MG) 20 MG TABLET PO SCH (18:43)
[2024-07-21 20:00] VITALS: BP 90/60; TEMP 97.3; O2SAT 95
[2024-07-21] MEDS: ATORVASTATIN 40 MG TABLET PO SCH (21:26)
[2024-07-21] MEDS: GABAPENTIN 100 MG CAPSULE PO SCH (21:26)
[2024-07-22] VITALS (7 sets, daily range): BP systolic 102–185; BP diastolic 63–95; TEMP 97.3–98.1; O2SAT 94–100
[2024-07-22 08:01] LABS: CALCIUM, SERUM 7.9 mg/dL (8.5-10.1); CARBON DIOXIDE 21 mmol/L (21-32); CHLORIDE 110 mmol/L (98-107); CREATININE 1.3 mg/dL (0.6-1.3); GLUCOSE 75 mg/dL (74-106); PHOSPHORUS 3.8 mg/dL (2.5-4.9); POTASSIUM 4.8 mmol/L (3.5-5.1); SODIUM SERUM 138 mmol/L (136-145); UREA NITROGEN, BLOOD 39 mg/dL (7-18)
[2024-07-22 08:53] LABS: BASOPHILS % (AUTO) 0.5 % (0.0-2.0); EOSINOPHILS # (AUTO) 0.4 K/uL (0.0-0.7); EOSINOPHILS % (AUTO) 5.6 % (0.0-6.0); HEMATOCRIT 30 % (33-45); LYMPHOCYTES # (AUTO) 2.1 K/uL (0.8-4.8); LYMPHOCYTES % (AUTO) 32.6 % (20.0-44.0); MEAN CORPUSCULAR HEMOGLOBIN 31 PG (26.0-33.0); MEAN CORPUSCULAR HGB CONC 34 g/dl (31.0-36.0); MEAN CORPUSCULAR VOLUME 91 fL (82-100); MONOCYTES # (AUTO) 0.7 K/uL (0.1-1.30); MONOCYTES % (AUTO) 10.4 % (2.0-12.0); NEUTROPHILS # (AUTO) 3.3 K/uL (1.8-8.9); NEUTROPHILS % (AUTO) 50.9 % (43.0-81.0); PLATELET COUNT (AUTO) 193 K/uL (150-450); RED BLOOD CELL COUNT(AUTO) 3.26 MIL/uL (4.0-5.2); RED CELL DISTRIBUTION WIDTH 15.6 % (11.5-15.0); WHITE BLOOD COUNT (AUTO) 6.4 K/uL (4.3-11.0)
[2024-07-22] MEDS ORDERED: Medication Not On Formulary EA (Cranberry Extract (Cranberry) 450 MG) PO SCH (09:00)
[2024-07-22] MEDS: ASPIRIN 81 MG TAB.CHEW PO SCH (09:10)
[2024-07-22] MEDS: HYDROCHLOROTHIAZIDE 25 MG TABLET PO SCH (09:11)
[2024-07-22] MEDS: ACETAMINOPHEN 325 MG TABLET PO SCH (09:12)
[2024-07-22] MEDS: MULTIVIT W/MINERALS 1 TAB TABLET PO SCH (09:16)
[2024-07-22] MEDS: PANTOPRAZOLE 40 MG TABLET.DR PO SCH (09:16)
[2024-07-22 14:52] LABS: APPEARANCE,URINE CLEAR (CLEAR); BILIRUBIN,URINE NEGATIVE (NEGATIVE); BLOOD, URINE NEGATIVE Ery/uL (NEGATIVE); COLOR,URINE YELLOW (YELLOW); KETONES,URINE NEGATIVE (NEGATIVE); LEUKOCYTE ESTERASE ,URINE 2+ (NEGATIVE); NITRITE, URINE POSITIVE (NEGATIVE); PH,URINE 5.5 (5.0-8.0); PROTEIN,URINE NEGATIVE (NEGATIVE); UGLUCOSE NEGATIVE (NEGATIVE); UROBILINOGEN,URINE 0.2 EU/dL (0.2)
[2024-07-22 14:57] LABS: CREATININE, URINE 84.9 MG/DL (30.0-125.0); URINE TOTAL PROTEIN 30.3 mg/dL (0-11.9)
[2024-07-22 15:00] LABS: ADD URINE CULTURE YES; BACTERIA,URINE 2+ /HPF (None Seen); RBC,URINE 0-2 /HPF (0-2); WBC,URINE 21-50 /HPF (0-3)
[2024-07-22 18:37] LABS: EOSINOPHIL,URINE None Seen
[2024-07-22] MEDS: CIPROFLOXACIN IV RTU 400 MG in PREMIX 1 EA IV SCH (20:14)
[2024-07-23] VITALS: BP 135/80; TEMP 97.5; O2SAT 96
[2024-07-23 05:15] VITALS: BP 145/92; TEMP 97.5; O2SAT 96
[2024-07-23 08:00] VITALS: BP 160/100; TEMP 98.6; O2SAT 99
[2024-07-23] MEDS: MULTIVIT W/MINERALS 1 TAB TABLET PO SCH (08:29)
[2024-07-23 09:54] LABS: BASOPHILS % (AUTO) 0.1 % (0.0-2.0); EOSINOPHILS # (AUTO) 0.4 K/uL (0.0-0.7); EOSINOPHILS % (AUTO) 6.2 % (0.0-6.0); HEMATOCRIT 29 % (33-45); HEMOGLOBIN 9.6 g/dL (11.5-14.8); LYMPHOCYTES # (AUTO) 1.8 K/uL (0.8-4.8); LYMPHOCYTES % (AUTO) 31.7 % (20.0-44.0); MEAN CORPUSCULAR HEMOGLOBIN 31 PG (26.0-33.0); MEAN CORPUSCULAR HGB CONC 34 g/dl (31.0-36.0); MEAN CORPUSCULAR VOLUME 91 fL (82-100); MONOCYTES # (AUTO) 0.6 K/uL (0.1-1.30); MONOCYTES % (AUTO) 10.2 % (2.0-12.0); NEUTROPHILS % (AUTO) 51.8 % (43.0-81.0); PLATELET COUNT (AUTO) 180 K/uL (150-450); RED BLOOD CELL COUNT(AUTO) 3.16 MIL/uL (4.0-5.2); RED CELL DISTRIBUTION WIDTH 15.7 % (11.5-15.0); WHITE BLOOD COUNT (AUTO) 5.8 K/uL (4.3-11.0)
[2024-07-23 10:33] LABS: ALBUMIN 2.6 g/dL (3.4-5.0); BILIRUBIN,TOTAL 0.4 mg/dL (0.2-1.0); MAGNESIUM 1.9 mg/dL (1.8-2.4); PHOSPHORUS 2.8 mg/dL (2.5-4.9); POTASSIUM 4.2 mmol/L (3.5-5.1); TOTAL PROTEIN, SERUM 6.6 g/dL (6.4-8.2)
[2024-07-23 12:00] VITALS: BP 158/61; TEMP 97.5; O2SAT 99
[2024-07-23] MEDS: ENSURE ENLIVE 237 ML LIQUID (VANILLA) PO SCH (14:18)
[2024-07-23 16:00] VITALS: BP 124/100; TEMP 98.2; O2SAT 96
[2024-07-23 20:00] VITALS: BP 146/78; TEMP 98.2; O2SAT 98
[2024-07-24] VITALS (7 sets, daily range): BP systolic 122–152; BP diastolic 63–94; TEMP 97.4–98.1; O2SAT 96–100
[2024-07-24 06:48] LABS: BASOPHILS % (AUTO) 0.3 % (0.0-2.0); EOSINOPHILS # (AUTO) 0.3 K/uL (0.0-0.7); EOSINOPHILS % (AUTO) 6.9 % (0.0-6.0); HEMATOCRIT 32 % (33-45); HEMOGLOBIN 10.5 g/dL (11.5-14.8); LYMPHOCYTES # (AUTO) 1.6 K/uL (0.8-4.8); LYMPHOCYTES % (AUTO) 33.9 % (20.0-44.0); MEAN CORPUSCULAR HEMOGLOBIN 31 PG (26.0-33.0); MEAN CORPUSCULAR HGB CONC 33 g/dl (31.0-36.0); MEAN CORPUSCULAR VOLUME 94 fL (82-100); MONOCYTES # (AUTO) 0.5 K/uL (0.1-1.30); MONOCYTES % (AUTO) 10.3 % (2.0-12.0); NEUTROPHILS # (AUTO) 2.3 K/uL (1.8-8.9); NEUTROPHILS % (AUTO) 48.6 % (43.0-81.0); PLATELET COUNT (AUTO) 187 K/uL (150-450); RED BLOOD CELL COUNT(AUTO) 3.43 MIL/uL (4.0-5.2); RED CELL DISTRIBUTION WIDTH 15.6 % (11.5-15.0); WHITE BLOOD COUNT (AUTO) 4.7 K/uL (4.3-11.0)
[2024-07-24 07:05] LABS: CALCIUM, SERUM 8.2 mg/dL (8.5-10.1); CREATININE 0.9 mg/dL (0.6-1.3); PHOSPHORUS 2.5 mg/dL (2.5-4.9); POTASSIUM 4.1 mmol/L (3.5-5.1)
[2024-07-24 07:12] LABS: PTH, INTACT 20 pg/mL (15-65)
== END 2024-07-24 14:21 | DRG 640 ==
LOC: ER 07:52 → TELE 12:56
PROVIDERS: ADMIT Nurse Practitioner Family; ATTEND Student in an Organized Health Care Education/Training Program
DX: E86.0 Dehydration (principal); N17.0 Acute kidney failure with tubular necrosis; D68.59 Other primary thrombophilia; E87.5 Hyperkalemia; F03.90 Unspecified dementia, unspecified severity, without behavioral disturbance, psychotic disturbance, mood disturbance, and anxiety; J44.9 Chronic obstructive pulmonary disease, unspecified; Z79.82 Long term (current) use of aspirin; Z87.891 Personal history of nicotine dependence; Z88.0 Allergy status to penicillin; Z86.73 Personal history of transient ischemic attack (TIA), and cerebral infarction without residual deficits; Z90.49 Acquired absence of other specified parts of digestive tract; E83.9 Disorder of mineral metabolism, unspecified; E78.5 Hyperlipidemia, unspecified; E11.40 Type 2 diabetes mellitus with diabetic neuropathy, unspecified; I10 Essential (primary) hypertension; D64.9 Anemia, unspecified; I25.10 Atherosclerotic heart disease of native coronary artery without angina pectoris; T46.5X5A Adverse effect of other antihypertensive drugs, initial encounter; Y92.129 Unspecified place in nursing home as the place of occurrence of the external cause
CPT/HCPCS: 36415; 71045-TC; 76770-TC; 80048-TC; 80053-TC; 81001; 82550-TC; 82570-TC; 82962-TC; 83735-TC; 83970; 84100-TC; 84155; 84165; 84300-TC; 85025-TC; 87081-TC; 87086-TC; 87186-TC; A4216; A4223; G0378; J0744; J1650; J7030; J7040

== ENCOUNTER 2024-09-09 00:47 | Inpatient (IN) | payer MEDICARE, OTHER ==
[~2024-09-09] VITALS: Ht 152.4 cm; Wt 34.5 kg
[~2024-09-09 00:47] MED LIST changes: +ACET325T53 PO; +AMIN30LI66 PO; -COLL30OI TP; +CRAN300T PO; -LACT-54 PO; +MAG30ORA PO; +MAGN400O6 PO; -METO50TA16 PO; +NA P133E RC; -PANT40TA49 PO; -SERT25TA PO
[2024-09-09 01:50] LABS: BASOPHILS % (AUTO) 0.5 % (0.0-2.0); EOSINOPHILS # (AUTO) 0.2 K/uL (0.0-0.7); EOSINOPHILS % (AUTO) 2.8 % (0.0-6.0); HEMATOCRIT 36 % (33-45); HEMOGLOBIN 11.9 g/dL (11.5-14.8); LYMPHOCYTES # (AUTO) 2.4 K/uL (0.8-4.8); LYMPHOCYTES % (AUTO) 42.9 % (20.0-44.0); MEAN CORPUSCULAR HEMOGLOBIN 30 PG (26.0-33.0); MEAN CORPUSCULAR HGB CONC 33 g/dl (31.0-36.0); MEAN CORPUSCULAR VOLUME 92 fL (82-100); MONOCYTES # (AUTO) 0.5 K/uL (0.1-1.30); MONOCYTES % (AUTO) 8.4 % (2.0-12.0); NEUTROPHILS # (AUTO) 2.5 K/uL (1.8-8.9); NEUTROPHILS % (AUTO) 45.4 % (43.0-81.0); PLATELET COUNT (AUTO) 219 K/uL (150-450); RED BLOOD CELL COUNT(AUTO) 3.95 MIL/uL (4.0-5.2); RED CELL DISTRIBUTION WIDTH 16.9 % (11.5-15.0); WHITE BLOOD COUNT (AUTO) 5.6 K/uL (4.3-11.0)
[2024-09-09 01:58] LABS: CALCIUM, SERUM 8.7 mg/dL (8.5-10.1); CREATININE 1.3 mg/dL (0.6-1.3)
[2024-09-09 01:59] LABS: POTASSIUM 7.2 mmol/L (3.5-5.1)
[2024-09-09] MEDS ORDERED: Calcium Gluconate 0.465 MEQ/ML VIAL IV ONE (02:31)
[2024-09-09] MEDS ORDERED: INSULIN REGULAR, HUMAN 100 UNIT/ML 10 ML VIAL ONE (02:31)
[2024-09-09] MEDS ORDERED: DEXTROSE 50%-WATER 50 ML DISP.SYRIN ONE (02:31)
[2024-09-09] MEDS ORDERED: SODIUM BICARBONATE SYR 50 MEQ/50 ML DISP.SYRIN ONE (02:31)
[2024-09-09] MEDS: SODIUM BICARBONATE SYR 50 MEQ/50 ML DISP.SYRIN IV ONE (02:39)
[2024-09-09] MEDS: Calcium Gluconate 1GM/10ML 4.65 MEQ in IV NS 0.9% 100 ML IV ONE (02:39)
[2024-09-09] MEDS: DEXTROSE 50%-WATER 50 ML DISP.SYRIN IVP ONE (02:40)
[2024-09-09] MEDS: INSULIN REGULAR, HUMAN 100 UNIT/ML 10 ML VIAL IV ONE (02:41)
[2024-09-09 02:42] LABS: ALBUMIN 3.2 g/dL (3.4-5.0); BILIRUBIN,TOTAL 0.3 mg/dL (0.2-1.0); TOTAL PROTEIN, SERUM 7.5 g/dL (6.4-8.2)
[2024-09-09] MEDS ORDERED: SODIUM ZIRCONIUM CYCLOSILICATE 10 GM POWD.PACK ONE (02:42)
[2024-09-09 02:44] LABS: ABG BASE EXCESS -4.4 mmol/L (-2.0-3.0); ABG OXYGEN SATURATION 96.8 % (94.0-98.0); ABG PCO2 31.9 mmHg (32.0-45.0); ABG PH 7.404 (7.350-7.450); ABG PO2 92.1 mmHg (83.0-108.0); ABG TOTAL HEMOGLOBIN 11.4 G/dL (12.0-16.0); COHb 0.3 % (0.5-1.5); MetHb 0.4 % (0.0-1.5); O2Hb 96.1 % (94.0-97.0); SITE, ABG RIGHT BRACHIAL
[2024-09-09] MEDS: SODIUM ZIRCONIUM CYCLOSILICATE 10 GM POWD.PACK PO ONE (02:48)
[2024-09-09 03:04] LABS: CALCIUM, SERUM 8.7 mg/dL (8.5-10.1); CREATININE 1.3 mg/dL (0.6-1.3)
[2024-09-09 03:13] LABS: POTASSIUM 6.8 mmol/L (3.5-5.1)
[2024-09-09] MEDS ORDERED: ACETAMINOPHEN 325 MG TABLET PO PRN (03:30)
[2024-09-09] MEDS ORDERED: ONDANSETRON HCL/PF 4 MG/2 ML VIAL IVP PRN (03:30)
[2024-09-09] MEDS ORDERED: ENOXAPARIN SODIUM 30 MG/0.3 ML DISP.SYRIN SQ SCH (03:30)
[2024-09-09 05:52] LABS: BASOPHILS % (AUTO) 0.4 % (0.0-2.0); EOSINOPHILS # (AUTO) 0.1 K/uL (0.0-0.7); EOSINOPHILS % (AUTO) 1.8 % (0.0-6.0); HEMATOCRIT 36 % (33-45); HEMOGLOBIN 11.4 g/dL (11.5-14.8); LYMPHOCYTES # (AUTO) 3.2 K/uL (0.8-4.8); LYMPHOCYTES % (AUTO) 39.4 % (20.0-44.0); MEAN CORPUSCULAR HEMOGLOBIN 30 PG (26.0-33.0); MEAN CORPUSCULAR HGB CONC 32 g/dl (31.0-36.0); MEAN CORPUSCULAR VOLUME 96 fL (82-100); MONOCYTES # (AUTO) 0.8 K/uL (0.1-1.30); MONOCYTES % (AUTO) 10.1 % (2.0-12.0); NEUTROPHILS # (AUTO) 3.9 K/uL (1.8-8.9); NEUTROPHILS % (AUTO) 48.3 % (43.0-81.0); PLATELET COUNT (AUTO) 201 K/uL (150-450); RED BLOOD CELL COUNT(AUTO) 3.76 MIL/uL (4.0-5.2); RED CELL DISTRIBUTION WIDTH 17.2 % (11.5-15.0); WHITE BLOOD COUNT (AUTO) 8.2 K/uL (4.3-11.0)
[2024-09-09] MEDS: SODIUM POLYSTYRENE SULFONATE 15 G/60 ML BOTTLE PO ONE ×2 (06:30→10:44)
[2024-09-09] MEDS: IV NS 0.9% 1,000 ML IV PRN (06:36)
[2024-09-09 08:00] VITALS: BP 151/90; TEMP 98.2; O2SAT 97
[2024-09-09] MEDS ORDERED: ISOS20TA15 PO (08:14)
[2024-09-09] MEDS ORDERED: PETR71OI2 TP (08:14)
[2024-09-09 08:22] LABS: CALCIUM, SERUM 8.9 mg/dL (8.5-10.1); CREATININE 1.2 mg/dL (0.6-1.3); MAGNESIUM 1.8 mg/dL (1.8-2.4); PHOSPHORUS 3.2 mg/dL (2.5-4.9)
[2024-09-09 08:33] LABS: POTASSIUM 6.5 mmol/L (3.5-5.1)
[2024-09-09] MEDS: PANTOPRAZOLE 40 MG VIAL IV SCH (10:41)
[2024-09-09] MEDS: ENOXAPARIN SODIUM 30 MG/0.3 ML DISP.SYRIN SQ SCH (10:43)
[2024-09-09] MEDS: SODIUM ZIRCONIUM CYCLOSILICATE 10 GM POWD.PACK PO SCH (10:45)
[2024-09-09] MEDS: ENSURE ENLIVE 237 ML LIQUID (VANILLA) PO SCH (11:00)
[2024-09-09 12:00] VITALS: BP 126/66; TEMP 97.3; O2SAT 100
[2024-09-09 13:12] LABS: APPEARANCE,URINE SLIGHTLY CLOUDY (CLEAR); BILIRUBIN,URINE NEGATIVE (NEGATIVE); BLOOD, URINE NEGATIVE Ery/uL (NEGATIVE); COLOR,URINE YELLOW (YELLOW); KETONES,URINE NEGATIVE (NEGATIVE); LEUKOCYTE ESTERASE ,URINE NEGATIVE (NEGATIVE); NITRITE, URINE POSITIVE (NEGATIVE); PROTEIN,URINE NEGATIVE (NEGATIVE); UGLUCOSE NEGATIVE (NEGATIVE); UROBILINOGEN,URINE 0.2 EU/dL (0.2)
[2024-09-09 14:36] LABS: ADD URINE CULTURE YES; BACTERIA,URINE Many /HPF (None Seen); SQUAMOUS EPITHELIAL CELL,UR Few /HPF (None Seen)
[2024-09-09 15:02] LABS: CALCIUM, SERUM 8.7 mg/dL (8.5-10.1); CREATININE 1.2 mg/dL (0.6-1.3)
[2024-09-09 15:03] LABS: EOSINOPHIL,URINE None Seen
[2024-09-09 16:00] VITALS: BP 109/76; TEMP 97.5; O2SAT 98
[2024-09-09 16:23] LABS: CREATININE, URINE 58.4 MG/DL (30.0-125.0); URINE TOTAL PROTEIN 21.1 mg/dL (0-11.9)
[2024-09-09 20:00] VITALS: BP 152/95; TEMP 97.1; O2SAT 96
[2024-09-09 21:49] VITALS: BP 152/95; TEMP 97.1; O2SAT 96
[2024-09-10] VITALS (7 sets, daily range): BP systolic 123–170; BP diastolic 64–105; TEMP 97.2–98.2; O2SAT 93–97
[2024-09-10] MEDS: hydrALAZINE HCL IV 20 MG VIAL IV PRN (04:42)
[2024-09-10 06:39] LABS: BASOPHILS % (AUTO) 0.6 % (0.0-2.0); EOSINOPHILS # (AUTO) 0.3 K/uL (0.0-0.7); EOSINOPHILS % (AUTO) 4.6 % (0.0-6.0); HEMATOCRIT 33 % (33-45); HEMOGLOBIN 10.7 g/dL (11.5-14.8); LYMPHOCYTES # (AUTO) 2.6 K/uL (0.8-4.8); LYMPHOCYTES % (AUTO) 46.5 % (20.0-44.0); MEAN CORPUSCULAR HEMOGLOBIN 31 PG (26.0-33.0); MEAN CORPUSCULAR HGB CONC 33 g/dl (31.0-36.0); MEAN CORPUSCULAR VOLUME 94 fL (82-100); MONOCYTES # (AUTO) 0.5 K/uL (0.1-1.30); MONOCYTES % (AUTO) 8.4 % (2.0-12.0); NEUTROPHILS # (AUTO) 2.2 K/uL (1.8-8.9); NEUTROPHILS % (AUTO) 39.9 % (43.0-81.0); PLATELET COUNT (AUTO) 187 K/uL (150-450); RED BLOOD CELL COUNT(AUTO) 3.47 MIL/uL (4.0-5.2); RED CELL DISTRIBUTION WIDTH 16.7 % (11.5-15.0); WHITE BLOOD COUNT (AUTO) 5.5 K/uL (4.3-11.0)
[2024-09-10 07:20] LABS: CALCIUM, SERUM 7.9 mg/dL (8.5-10.1); MAGNESIUM 1.8 mg/dL (1.8-2.4); PHOSPHORUS 3.9 mg/dL (2.5-4.9); POTASSIUM 4.3 mmol/L (3.5-5.1)
[2024-09-10] MEDS: AMLODIPINE BESYLATE 5 MG TABLET PO SCH (09:13)
[2024-09-10] MEDS: PANTOPRAZOLE 40 MG TABLET.DR PO SCH (09:13)
[2024-09-11] VITALS: BP 169/88; TEMP 99.5; O2SAT 97
[2024-09-11 06:00] VITALS: BP 130/100; TEMP 98.1; O2SAT 97
[2024-09-11 08:00] VITALS: BP 139/79; TEMP 98.1; O2SAT 97
[2024-09-11] MEDS: AMLODIPINE BESYLATE 5 MG TABLET PO SCH (09:03)
[2024-09-11] MEDS: CEPHALEXIN MONOHYDRATE 500 MG CAPSULE PO SCH (11:01)
[2024-09-11 12:00] VITALS: BP 158/59; TEMP 98.1; O2SAT 97
[2024-09-11] MEDS ORDERED: CEPH-570 PO (13:10)
[2024-09-11] MEDS ORDERED: AMLO-212 PO (13:10)
[2024-09-11] MEDS ORDERED: GLUTOSE 15 G GEL..GM. PO PRN (13:30)
[2024-09-11] MEDS: ASPIRIN 81 MG TAB.CHEW PO SCH (13:56)
[2024-09-11 16:00] VITALS: BP 163/75; TEMP 97.9; O2SAT 99
[2024-09-11] MEDS: ISOSORBIDE MONONITRATE 20 MG TABLET PO SCH (17:00)
[2024-09-11] MEDS: hydrALAZINE HCL 50 MG TABLET PO SCH (17:22)
[2024-09-11 20:00] VITALS: BP_SYST 127; BP_SYST 142; BP_DIAS 54; BP_DIAS 72; TEMP 97.3; TEMP 99.6; O2SAT 95; O2SAT 99
[2024-09-11] MEDS: GABAPENTIN 100 MG CAPSULE PO SCH (21:03)
[2024-09-11] MEDS: ATORVASTATIN 40 MG TABLET PO SCH (21:03)
[2024-09-12] VITALS: BP 126/72; TEMP 98.2; O2SAT 99
[2024-09-12 04:00] VITALS: BP 134/85; TEMP 98.1; O2SAT 98
[2024-09-12 06:51] LABS: CALCIUM, SERUM 7.9 mg/dL (8.5-10.1); CREATININE 0.9 mg/dL (0.6-1.3); MAGNESIUM 2.1 mg/dL (1.8-2.4); PHOSPHORUS 2.9 mg/dL (2.5-4.9); POTASSIUM 3.9 mmol/L (3.5-5.1)
[2024-09-12 08:00] VITALS: BP 131/76; TEMP 98.1; O2SAT 98
[2024-09-12] MEDS: MULTIVITAMINS,THERAGRAN 1 UDTAB TABLET PO SCH (08:43)
[2024-09-12 08:49] VITALS: BP 131/76
[2024-09-12] MEDS: HYDROCHLOROTHIAZIDE 25 MG TABLET PO SCH (08:49)
[2024-09-12 09:54] LABS: BASOPHILS % (AUTO) 0.5 % (0.0-2.0); EOSINOPHILS # (AUTO) 0.2 K/uL (0.0-0.7); HEMATOCRIT 37 % (33-45); HEMOGLOBIN 11.9 g/dL (11.5-14.8); LYMPHOCYTES # (AUTO) 2.5 K/uL (0.8-4.8); LYMPHOCYTES % (AUTO) 40.9 % (20.0-44.0); MEAN CORPUSCULAR HEMOGLOBIN 30 PG (26.0-33.0); MEAN CORPUSCULAR HGB CONC 33 g/dl (31.0-36.0); MEAN CORPUSCULAR VOLUME 93 fL (82-100); MONOCYTES # (AUTO) 0.7 K/uL (0.1-1.30); MONOCYTES % (AUTO) 10.8 % (2.0-12.0); NEUTROPHILS # (AUTO) 2.7 K/uL (1.8-8.9); NEUTROPHILS % (AUTO) 44.8 % (43.0-81.0); PLATELET COUNT (AUTO) 188 K/uL (150-450); RED BLOOD CELL COUNT(AUTO) 3.93 MIL/uL (4.0-5.2); RED CELL DISTRIBUTION WIDTH 16.6 % (11.5-15.0); WHITE BLOOD COUNT (AUTO) 6.1 K/uL (4.3-11.0)
== END 2024-09-12 14:13 | DRG 641 ==
LOC: ER 00:51 → TELE1 05:13
PROVIDERS: ADMIT Nurse Practitioner Family; ATTEND Internal Medicine
DX: E87.5 Hyperkalemia (principal); N17.9 Acute kidney failure, unspecified; F03.93 Unspecified dementia, unspecified severity, with mood disturbance; N39.0 Urinary tract infection, site not specified; Z88.0 Allergy status to penicillin; E78.5 Hyperlipidemia, unspecified; Z79.82 Long term (current) use of aspirin; T50.0X5A Adverse effect of mineralocorticoids and their antagonists, initial encounter; T46.5X5A Adverse effect of other antihypertensive drugs, initial encounter; Y92.129 Unspecified place in nursing home as the place of occurrence of the external cause; F20.9 Schizophrenia, unspecified; E11.22 Type 2 diabetes mellitus with diabetic chronic kidney disease; I12.9 Hypertensive chronic kidney disease with stage 1 through stage 4 chronic kidney disease, or unspecified chronic kidney disease; N18.9 Chronic kidney disease, unspecified; I25.10 Atherosclerotic heart disease of native coronary artery without angina pectoris; Z79.899 Other long term (current) drug therapy; Z86.73 Personal history of transient ischemic attack (TIA), and cerebral infarction without residual deficits; F32.A Depression, unspecified; Z87.891 Personal history of nicotine dependence; Z90.49 Acquired absence of other specified parts of digestive tract; J44.9 Chronic obstructive pulmonary disease, unspecified
CPT/HCPCS: 36415; 36600; 71045-TC; 80048-TC; 80053-TC; 81001; 82570-TC; 82803-TC; 83735-TC; 83880; 84100-TC; 84300-TC; 84484-TC; 85025-TC; 87081-TC; 87086-TC; 92526; 92611-TC; A4223; G0378; J0360; J0612; J1650; J1815; J2470; J3490; J7030